=== PATIENT | female | born 1955 | race Caucasian/White ===

== ENCOUNTER → 2018-02-15 08:03 | Outpatient (CLI) | payer OTHER, SELFPAY ==
[2018-02-15 10:21] LABS: Vitamin D,25 Hydroxy 26.1 ng/mL (29.95-100.01)
[2018-02-15 10:23] LABS: AST(SGOT) 18 U/L (15-37); Alanine Aminotransfer ALT/SGPT 23 U/L (13-56); Albumin, Serum 3.7 g/dL (3.2-5.0); Alkaline Phosphatase 115 U/L (45-117); BUN 12 mg/dL (7-18); Bilirubin, Direct 0.07 mg/dL (0.00-0.30); Calcium,Total 8.9 mg/dL (8.5-10.1); Cholesterol 194 mg/dL (200); Creatinine, Serum 0.75 mg/dL (0.55-1.02); EST Glomerular Filtration Rate 83 mL/min (>60); Est Glom Filt Rate - Afr Amer 101 mL/min (>60); Globulin 3.9 g/dL (2.2-4.2); Glucose 91 mg/dL (74-106); Protein, Total 7.6 g/dL (6.4-8.2); Triglycerides 173 mg/dL
[2018-02-15 10:24] LABS: Anion Gap 6 (5-15); Chloride 107 mmol/L (98-107); High Density Lipoprotein 43 mg/dL; Sodium Level 139 mmol/L (136-145); Thyroid Stim Hormone (TSH) 2.38 uIU/mL (0.358-3.74); Very Low Density Lipoprotein 35 mg/dL (5-40)
== END ==
PROVIDERS: Family Provider Family Medicine; PCP Family Medicine; Visit Provider Family Medicine
DX: E78.5 Hyperlipidemia, unspecified (principal); M85.80 Other specified disorders of bone density and structure, unspecified site
CPT/HCPCS: 36415; 80048; 80061; 80076; 82306; 84443

== ENCOUNTER → 2019-02-14 | Outpatient (CLI) | payer OTHER, SELFPAY ==
[2019-02-14 13:06] LABS: Anion Gap 3 (5-15); BUN 21 mg/dL (7-18); Calcium,Total 8.7 mg/dL (8.5-10.1); Chloride 106 mmol/L (98-107); Creatinine, Serum 0.81 mg/dL (0.55-1.02); EST Glomerular Filtration Rate 76 mL/min (>60); Est Glom Filt Rate - Afr Amer 92 mL/min (>60); Glucose 77 mg/dL (74-106); Potassium 3.9 mmol/L (3.5-5.1); Sodium Level 139 mmol/L (136-145); Thyroid Stim Hormone (TSH) 1.19 uIU/mL (0.358-3.74)
[2019-02-14 13:07] LABS: Vitamin D,25 Hydroxy 23.4 ng/mL (29.95-100.01)
== END | disposition home or self-care (01) ==
PROVIDERS: Family Provider Family Medicine; PCP Family Medicine; Referring Provider Family Medicine; Visit Provider Family Medicine
DX: E78.5 Hyperlipidemia, unspecified (principal); M85.80 Other specified disorders of bone density and structure, unspecified site
CPT/HCPCS: 36415; 80048; 82306; 84443

== ENCOUNTER → 2020-05-01 | Outpatient (CLI) | payer OTHER, SELFPAY ==
[2020-05-01 10:17] LABS: Vitamin D,25 Hydroxy 38.5 ng/mL
[2020-05-01 10:27] LABS: ALB/GLOB Ratio 0.9 RATIO (0.9-2.4); AST(SGOT) 16 U/L (15-37); Alanine Aminotransfer ALT/SGPT 24 U/L (13-56); Albumin, Serum 3.6 g/dL (3.2-5.0); Alkaline Phosphatase 105 U/L (45-117); Anion Gap 5 (5-15); BUN 15 mg/dL (7-18); Calcium,Total 9.1 mg/dL (8.5-10.1); Chloride 106 mmol/L (98-107); Cholesterol 204 mg/dL (200); Creatinine, Serum 0.79 mg/dL (0.55-1.02); EST Glomerular Filtration Rate 78 mL/min (>60); Est Glom Filt Rate - Afr Amer 94 mL/min (>60); Globulin 4.2 g/dL (2.2-4.2); Glucose 90 mg/dL (74-106); High Density Lipoprotein 49 mg/dL; Potassium 4.1 mmol/L (3.5-5.1); Protein, Total 7.8 g/dL (6.4-8.2); Sodium Level 138 mmol/L (136-145); Thyroid Stim Hormone (TSH) 1.77 uIU/mL (0.358-3.74); Triglycerides 179 mg/dL; Very Low Density Lipoprotein 36 mg/dL (5-40)
== END | disposition home or self-care (01) ==
LOC: MFPLAB 08:13
PROVIDERS: PCP Family Medicine; Visit Provider Family Medicine
DX: M85.80 Other specified disorders of bone density and structure, unspecified site (principal); R79.89 Other specified abnormal findings of blood chemistry; E78.5 Hyperlipidemia, unspecified
CPT/HCPCS: 36415; 80053; 80061; 82306; 84443

== ENCOUNTER → 2020-05-18 | Outpatient (CLI) | payer OTHER, SELFPAY ==
--- NOTE | 2020-05-18 07:44 | CT_ITS ---
STUDY: LOW DOSE CT LUNG CANCER SCREENING REASON FOR EXAM: Female, 65 years old. LUNG SCREEN, SMOKER X 50+, 1PPD, COPD, SOB RADIATION DOSAGE (If Supplied By Facility): CTDIvol = ( 2.55 ) mGy, DLP = ( 89.97 ) mGycm TECHNIQUE: No contrast was administered. Low dose technique was utilized (average mAS-38 and kVp 120). 1.25 mm axial source images with a slice interval of 1.25-mm were reconstructed in lung windows. 2.5 mm axial source images with a slice interval of 2.5-mm were reconstructed in lung windows. 5.0 mm axial source images with a slice interval of 5.0-mm were reconstructed in soft tissue windows. Nodule measured using lung windows on PACS and/or independent workstation with automated measurement of minimum and maximum diameter. Nodule measurement reported as average diameter rounded to the nearest whole number. Growth is defined as an increase ins size of greater than 1.5 mm. COMPARISON: None. NODULES: There is a 3.1 mm noncalcified nodule in the superior aspect of the right lower lobe as seen on axial image #136. There is a 4.4 mm partially calcified nodule in the lateral aspect of the right lower lobe as seen on axial image #177. Emphysema: Diffuse emphysematous changes with bullous formation more prominent in the upper lobes. There is evidence of a thickening of the right major fissure. This extends into the region of the right lower lobe. Increased markings are also seen in the anterior medial aspect of the right middle lobe as well as the lingular segment of the left upper lobe suggestive of scarring. Aorta: Atherosclerotic calcification. Coronary arteries: Coronary artery calcification. Other chest and abdominal findings: Degenerative changes of the thoracic spine. CT/Low Dose CT Lung Screening IMPRESSION: Lung-RADS category 2 - Continue annual screening with LDCT in 12 months. IMPORTANT NOTES FOR USE: ACR Lung-RADS Version 1.0 Assessment Categories Release Date: February 27, 2014 Category: Coded 0-4 bases on nodule(s) with highest degree of suspicion. Negative screen is defined as categories 1 and 2; a positive screen is defined as categories 3 and 4. Category 3 and 4A nodules that are unchanged on interval CT should be coded as category 2, and individuals returned to screening in 12 months. Category 4X: Category 3 or 4 nodules with additional imaging findings that increase the suspicion of lung cancer, such as spiculation, GGN that doubles in size in 1 year, enlarged lymph notes, etc. Category Modifiers: S (significant finding unrelated to lung cancer) and C (prior history of treated lung cancer) may be added to the 0-4 Lung-RADS Electronically Signed: Elliot Gómez, at 9:23 EDT , Service support ,
== END | disposition home or self-care (01) ==
PROVIDERS: PCP Family Medicine; Referring Provider Family Medicine; Visit Provider Family Medicine
DX: Z72.0 Tobacco use (principal); Z12.2 Encounter for screening for malignant neoplasm of respiratory organs
CPT/HCPCS: G0297

== ENCOUNTER → 2021-03-14 11:46 | Outpatient (CLI) | payer MEDICARE, SELFPAY ==
--- NOTE | 2021-03-14 11:50 | RAD_ITS ---
STUDY: X-RAY - UNILATERAL RIBS ( LEFT ) WITH CHEST REASON FOR EXAM: Female, 66 years old. left side rib pain TECHNIQUE - RIBS: 4 view(s) of the ribs. TECHNIQUE - CHEST: Single PA view of the chest. COMPARISON: 11/20/2014 FINDINGS - RIBS: Normal visualized ribs without a demonstrated fracture. FINDINGS - CHEST: The lungs are clear and expanded. There is no demonstrated pleural abnormality. Normal size heart. Normal mediastinum and adeline. Normal visualized pulmonary arteries. Normal visualized aortic arch and descending thoracic aorta. Normal visualized thoracic spine. Normal visualized ribs, clavicles, and shoulders. There is no demonstrated abnormality of the visualized soft tissue structures of the upper abdomen. RAD/Ribs Uni Min 3V w/PA Chest IMPRESSION: RIBS: Normal x-ray examination of the ribs. CHEST: Normal x-ray examination of the chest. Electronically Signed: Edgar Dockery MD at 8:42 EDT Tel , Service support ,
== END ==
PROVIDERS: PCP Family Medicine; Referring Provider Family Medicine; Visit Provider Family Medicine
DX: R07.81 Pleurodynia (principal)
CPT/HCPCS: 71101

== ENCOUNTER → 2021-05-07 10:14 | Outpatient (CLI) | payer MEDICARE, SELFPAY ==
[2021-05-07 12:18] LABS: Vitamin D,25 Hydroxy 24.6 ng/mL
[2021-05-07 12:28] LABS: ALB/GLOB Ratio 0.9 RATIO (0.9-2.4); AST(SGOT) 19 U/L (15-37); Alanine Aminotransfer ALT/SGPT 20 U/L (13-56); Albumin, Serum 3.7 g/dL (3.2-5.0); Alkaline Phosphatase 120 U/L (45-117); Anion Gap 6 (5-15); BUN 13 mg/dL (7-18); BUN/Creat Ratio 16.9 RATIO (10-20); Calcium,Total 9.3 mg/dL (8.5-10.1); Chloride 103 mmol/L (98-107); Cholesterol 199 mg/dL (200); Creatinine, Serum 0.77 mg/dL (0.55-1.02); EST Glomerular Filtration Rate 80 mL/min (>60); Est Glom Filt Rate - Afr Amer 97 mL/min (>60); Globulin 4.1 g/dL (2.2-4.2); Glucose 86 mg/dL (74-106); High Density Lipoprotein 51 mg/dL; Protein, Total 7.8 g/dL (6.4-8.2); Sodium Level 134 mmol/L (136-145); Triglycerides 162 mg/dL; Very Low Density Lipoprotein 32 mg/dL (5-40)
== END ==
PROVIDERS: PCP Family Medicine; Visit Provider Family Medicine
DX: E78.5 Hyperlipidemia, unspecified (principal); M85.80 Other specified disorders of bone density and structure, unspecified site
CPT/HCPCS: 36415; 80053; 80061; 82306; 84443

== ENCOUNTER → 2021-05-17 13:04 | Outpatient (CLI) | payer MEDICARE, SELFPAY ==
--- NOTE | 2021-05-17 13:13 | CT_ITS ---
STUDY: LOW DOSE CT LUNG CANCER SCREENING REASON FOR EXAM: Female, 66 years old. SCREENING. Patient smoked 1 pack per day for 48 years. COPD. RADIATION DOSAGE (If Supplied By Facility): CTDIvol = ( 2.01 ) mGy, DLP = ( 76.62 ) mGycm TECHNIQUE: No contrast was administered. Low dose technique was utilized (average mAS-38 and kVp 120). 1.25 mm axial source images with a slice interval of 1.25-mm were reconstructed in lung windows. 2.5 mm axial source images with a slice interval of 2.5-mm were reconstructed in lung windows. 5.0 mm axial source images with a slice interval of 5.0-mm were reconstructed in soft tissue windows. Nodule measured using lung windows on PACS and/or independent workstation with automated measurement of minimum and maximum diameter. Nodule measurement reported as average diameter rounded to the nearest whole number. Growth is defined as an increase ins size of greater than 1.5 mm. COMPARISON: Comparison is made with prior examination dated 05/18/2020. NODULES: Stable 3.1 mm noncalcified nodule in the superior aspect of the right lower lobe as seen on axial image #145. Emphysema: There is evidence of diffuse centrilobular emphysema. Stable linear scarring in the anterior medial aspect of the right middle lobe as well as in the lower. There is evidence of a 2.1 cm bulla in the left lower lobe. This is new as compared to prior study. Endobronchial lesion: None Aorta: Atherosclerotic plaques. Coronary arteries: Coronary artery calcification. Heart: Unremarkable Pulmonary artery: Unremarkable Mediastinal nodes: Unremarkable Other chest and abdominal findings: CT/Low Dose CT Lung Screening IMPRESSION: Lung-RADS category 2 - Continue annual screening with LDCT in 12 months. IMPORTANT NOTES FOR USE: ACR Lung-RADS Version 1.1 Assessment Categories Release Date: 2018 Category: Coded 0-4 bases on nodule(s) with highest degree of suspicion. Negative screen is defined as categories 1 and 2; a positive screen is defined as categories 3 and 4. Category 3 and 4A nodules that are unchanged on interval CT should be coded as category 2, and individuals returned to screening in 12 months. Category 4X: Category 3 or 4 nodules with additional imaging findings that increase the suspicion of lung cancer, such as spiculation, GGN that doubles in size in 1 year, enlarged lymph notes, etc. Category Modifiers: S (significant finding unrelated to lung cancer) Electronically Signed: Elliot Gómez MD at 14:33 EDT , Service support ,
== END ==
PROVIDERS: PCP Family Medicine; Referring Provider Family Medicine; Visit Provider Family Medicine
DX: F17.210 Nicotine dependence, cigarettes, uncomplicated (principal); Z12.2 Encounter for screening for malignant neoplasm of respiratory organs
CPT/HCPCS: 71271

== ENCOUNTER → 2021-05-20 09:11 | Outpatient (CLI) | payer MEDICARE, SELFPAY ==
--- NOTE | 2021-05-20 09:23 | AAAS_ITS ---
Reason For Study: AAA SCREENING Aorta Measurements Aorta Doppler Measurements Proximal aorta measures1.81 x 1.87cm. in cross- Peak systolic flow velocities within the proximal sectional axis. aorta measure 74.3 cm/sec. Proximal aorta measures1.93cm. in longitudinal Peak systolic flow velocities within the mid aorta axis. measure 57.3 cm/sec. Mid aorta measures1.79 x 1.81cm. in cross- Peak systolic flow velocities within the distal sectional axis. aorta measure 57.2 cm/sec. Mid aorta measures1.79cm. in longitudinal axis. Distal aorta measures1.59 x 1.59cm. in cross- sectional axis. Maximum aorta diameter measures 1.59cm. in transverse axis. Left Iliac Artery Left iliac artery measures 0.72 x 0.83 cm. in the cross-sectional axis. Left iliac artery measures 0.75 cm. in the longitudinal axis. Peak systolic velocity in the left iliac artery measures 89.7 cm/sec. Right Iliac Artery Right iliac artery measures 0.70 x 0.81 cm. in the cross-sectional axis. Right iliac artery measures 0.64 cm. in the longitudinal axis. Peak systolic velocity in the right iliac artery measures 84.2 cm/sec. Procedure Aorta IVC Iliac vasculature or bypass grafts 52753. The exam was diagnostic. Exam performed in department. VL/AAA Screening Interpretation Summary The dimensions of the intra-abdominal aorta are normal, without evidence of ane urysmal dilatation. The iliac arteries are also normal in caliber bilaterally. The intra-abdominal aorta and iliac arteries are patent, demonstrating normal, pulsatile arterial flow and normal p eak systolic velocities. Ordering Physician: Wilmer Arteaga Referring Physician: Wilmer Arteaga Performed By: Melina Porter, RDCS, RVT
== END ==
PROVIDERS: PCP Family Medicine; Referring Provider Family Medicine; Visit Provider Family Medicine
DX: Z13.6 Encounter for screening for cardiovascular disorders (principal)
CPT/HCPCS: 76706

== ENCOUNTER → 2021-06-12 10:01 | Outpatient (CLI) | payer MEDICARE, SELFPAY ==
--- NOTE | 2021-06-12 10:03 | BI_ITS ---
MAMMOGRAPHY - BILATERAL SCREENING REASON FOR EXAM: Female, 66 years old. Routine annual screening examination. PERTINENT HISTORY: Non-contributory. TECHNIQUE: Digital bilateral breast ehsan (3D mammographic acquisition) in the CC and MLO projections. 2-D mediolateral oblique (MLO) and craniocaudad (CC) views of both breasts were obtained. CAD: Full Field Digital Mammography with Computer Added Detection was performed. COMPARISON: Comparison is made with prior examination 08/20/2017 and 11/14/2014. FINDINGS: Breast Composition: There are scattered areas of fibroglandular density. There are no dominant masses or suspicious calcifications. Stable asymmetry of breast tissue were more breast tissue is seen in the right breast as compared to the left side. Small benign appearing bilateral axillary No other significant abnormalities are identified. There has been no significant change since the prior study. BI/SCRN MAMM (CAD)W/EHSAN BILAT IMPRESSION: Stable bilateral screening mammogram. Yearly follow-up mammogram recommended. (A) ASSESSMENT CATEGORY: BIRADS Category 2: Benign. A letter regarding these results will be sent to the patient by the facility within 30 days. Approximately 10% of breast cancers are not detected by mammography. A normal mammogram should not delay biopsy of a clinically suspicious abnormality. [id number] Electronically Signed: Elliot Gómez MD at 11:31 EDT , Service support ,
--- NOTE | 2021-06-12 10:08 | BD_ITS ---
STUDY: DUAL ENERGY X-RAY ABSORPTIOMETRY / DXA REASON FOR EXAM: Female, 66 years old. V700. Patient is postmenopausal. TECHNIQUE: Bone Mineral Density (BMD) measurements of lumbar spine and bilateral hips were obtained. COMPARISON: Comparison is made with prior study dated 02/25/2017. FINDINGS: Lumbar Spine (L1-L4): g/cm2 (0.821) / T-score (-1.9) / Z-score (-0.2) Findings are suggestive of osteopenia with a moderate fracture risk. Left Femur Total: g/cm2 (0.776) / T-score (-1.4) / Z-score (-0.1) Left Femoral Neck: g/cm2 (0.706) / T-score (-1.3) / Z-score (0.2) Right Femur Total: g/cm2 (0.644) / T-score (-2.4) / Z-score (-1.2) Right Femoral Neck: g/cm2 (0.643) / T-score (-1.9) / Z-score (-0.3) The T-Scores on the most recent prior examination were: Lumbar Spine (L1-L4): There has been worsening of bone density since the previous examination. Left Femur Total: which represents a worsening of 4.6%. Right Femur Total: which represents a worsening of 12.4%. BD/Dexa Bone Density Study IMPRESSION: The patient is considered osteopenic as outlined below according to World [place] Organization (WHO) criteria with a high fracture risk. There has been worsening of bone density since the previous examination. Reference Information: The T-score is the number of standard deviations above or below the standard which is normal for young adults at their peak bone mineral density. The World Health Organization (WHO) interprets the T-scores as follows: Above -1 Normal bone density Between -1 and -2.5 Osteopenia Equal to / or below -2.5 Osteoporosis As a practical clinical guideline, osteopenia may be graded as follows: Mild -1 through -1.5 Moderate -1.6 through -2.0 Severe -2.1 through -2.4 The Z-score is the number of standard deviations above or below age-matched controls. A Z-score of less than -1.5 would be considered abnormal. References: 1. NIH Osteoporosis and Related Bone Diseases www osteo.org 2. International Society for Clinical Densitometry www iscd.org 3. National Osteoporosis Foundation www nof.org Electronically Signed: Elliot Gómez MD at 20:24 EDT , Service support ,
== END ==
PROVIDERS: PCP Family Medicine; Referring Provider Family Medicine; Visit Provider Family Medicine
DX: Z00.00 Encounter for general adult medical examination without abnormal findings (principal); Z78.0 Asymptomatic menopausal state; Z12.31 Encounter for screening mammogram for malignant neoplasm of breast
CPT/HCPCS: 77063; 77067; 77080

== ENCOUNTER → 2022-05-07 | Outpatient (CLI) | payer MEDICARE, SELFPAY ==
[2022-05-07 12:39] LABS: PTHIN 37.4 pg/mL (18.4-80.1)
[2022-05-07 12:42] LABS: Vitamin D,25 Hydroxy 36.6 ng/mL
[2022-05-07 12:57] LABS: AST(SGOT) 19 U/L (15-37); Alanine Aminotransfer ALT/SGPT 20 U/L (13-56); Albumin, Serum 3.7 g/dL (3.2-5.0); Alkaline Phosphatase 100 U/L (45-117); Anion Gap 6 (5-15); BUN 18 mg/dL (7-18); BUN/Creat Ratio 22.6 RATIO (10-20); Calcium,Total 9.5 mg/dL (8.5-10.1); Chloride 105 mmol/L (98-107); Cholesterol 214 mg/dL (200); EST Glomerular Filtration Rate 77 mL/min (>60); Est Glom Filt Rate - Afr Amer 93 mL/min (>60); Globulin 3.8 g/dL (2.2-4.2); Glucose 92 mg/dL (74-106); High Density Lipoprotein 50 mg/dL; Potassium 4.1 mmol/L (3.5-5.1); Protein, Total 7.5 g/dL (6.4-8.2); Sodium Level 138 mmol/L (136-145); Triglycerides 162 mg/dL; Very Low Density Lipoprotein 32 mg/dL (5-40)
== END | disposition home or self-care (01) ==
LOC: MFPLAB 10:37
PROVIDERS: PCP Family Medicine; Visit Provider Family Medicine
DX: E78.5 Hyperlipidemia, unspecified (principal); M85.80 Other specified disorders of bone density and structure, unspecified site
CPT/HCPCS: 36415; 80053; 80061; 82306; 82330; 83970; 84443

== ENCOUNTER → 2022-06-13 | Outpatient (CLI) | payer MEDICARE, SELFPAY ==
--- NOTE | 2022-06-13 06:56 | CT_ITS ---
HISTORY: SCREENING. TECHNIQUE: Helically acquired images were obtained of the chest without contrast. A radiation dose optimization technique was used for this scan. 946 images. COMPARISON: 05/17/2021, 05/18/2020. FINDINGS: LARGE AIRWAYS: Grossly patent with minimal adherent material. LUNGS: Advanced emphysema with chronic biapical, lingular, right upper, and right middle lobe scarring. Noncalcified 3 mm and 4 mm right lower lobe nodules again seen. No new suspicious nodule. PLEURA: No pneumothorax or significant pleural effusion. HEART/PERICARDIUM: Heart within normal limits in size. Coronary artery calcification present. No pericardial effusion. VESSELS: Thoracic aorta nondilated. MEDIASTINUM/MARCELA: Stable borderline enlarged precarinal lymph node.. BONES: Degenerative change and osteopenia. CT/Low Dose CT Lung Screening IMPRESSION: Advanced emphysema and mild scarring in the lungs with stable 3 to 4 mm right lower lobe pulmonary nodules. Lung RADS category 2: Benign appearance or behavior. Continue annual screening with low dose CT. Electronically Signed: Sylvia Villalobos MD at 16:19 EDT ,
--- NOTE | 2022-06-13 07:17 | BI_ITS ---
MAMMOGRAPHY - BILATERAL SCREENING REASON FOR EXAM: Female, 67 years old. Routine annual screening examination. PERTINENT HISTORY: Non-contributory. TECHNIQUE: Digital bilateral breast ehsan (3D mammographic acquisition) in the CC and MLO projections. 2-D mediolateral oblique (MLO) and craniocaudad (CC) views of both breasts were obtained. CAD: Full Field Digital Mammography with Computer Added Detection was performed. COMPARISON: Screening mammogram from 06/12/2021, 08/20/2017. FINDINGS: Breast Composition: There are scattered areas of fibroglandular density. There are no dominant masses or suspicious calcifications. No other significant abnormalities are identified. There has been no significant change since the prior study. BI/SCRN MAMM (CAD)W/EHSAN BILAT IMPRESSION: Stable bilateral screening mammogram. Yearly follow-up mammogram recommended. (A) ASSESSMENT CATEGORY: BIRADS Category 1: Negative. A letter regarding these results will be sent to the patient by the facility within 30 days. Approximately 10% of breast cancers are not detected by mammography. A normal mammogram should not delay biopsy of a clinically suspicious abnormality. Electronically Signed: Marcelo Fay, at 11:22 EDT ,
== END | disposition home or self-care (01) ==
PROVIDERS: PCP Family Medicine; Referring Provider Family Medicine; Visit Provider Family Medicine
DX: Z12.31 Encounter for screening mammogram for malignant neoplasm of breast (principal); R91.8 Other nonspecific abnormal finding of lung field; Z87.891 Personal history of nicotine dependence
CPT/HCPCS: 71271; 77063; 77067

== ENCOUNTER → 2023-01-14 | Outpatient (CLI) | payer MEDICARE, SELFPAY ==
[2023-01-14 13:07] LABS: Syphilis Antibodies Non-reactive
[2023-01-14 13:47] LABS: Vitamin D,25 Hydroxy 37.1 ng/mL
[2023-01-14 13:48] LABS: ALB/GLOB Ratio 1.1 RATIO (0.9-2.4); AST(SGOT) 19 U/L (15-37); Alanine Aminotransfer ALT/SGPT 27 U/L (13-56); Albumin, Serum 3.9 g/dL (3.2-5.0); Alkaline Phosphatase 105 U/L (45-117); Anion Gap 11 (5-15); BUN 14 mg/dL (7-18); BUN/Creat Ratio 19.4 RATIO (10-20); Calcium,Total 9.7 mg/dL (8.5-10.1); Chloride 105 mmol/L (98-107); Cholesterol 198 mg/dL (200); Creatinine, Serum 0.72 mg/dL (0.55-1.02); EST Glomerular Filtration Rate 86 mL/min (>60); Est Glom Filt Rate - Afr Amer 103 mL/min (>60); Globulin 3.5 g/dL (2.2-4.2); Glucose 87 mg/dL (74-106); High Density Lipoprotein 55 mg/dL; Protein, Total 7.4 g/dL (6.4-8.2); Sodium Level 142 mmol/L (136-145); Thyroid Stim Hormone (TSH) 1.56 uIU/mL (0.358-3.74); Triglycerides 154 mg/dL; Very Low Density Lipoprotein 31 mg/dL (5-40)
== END | disposition home or self-care (01) ==
LOC: MFPLAB 09:38
PROVIDERS: PCP Family Medicine; Referring Provider Family Medicine; Visit Provider Family Medicine
DX: A53.9 Syphilis, unspecified (principal); E78.5 Hyperlipidemia, unspecified; M85.80 Other specified disorders of bone density and structure, unspecified site
CPT/HCPCS: 36415; 80053; 80061; 82306; 83970; 84443; 86780

== ENCOUNTER → 2023-06-15 | Outpatient (CLI) | payer MEDICARE, SELFPAY ==
--- NOTE | 2023-06-15 12:40 | CT_ITS ---
STUDY: LOW DOSE CT LUNG CANCER SCREENING REASON FOR EXAM: Female, 68 years old. SCREENING. The patient smoked 1 pack per day for 40 years. COPD. RADIATION DOSAGE (If Supplied By Facility): CTDIvol = ( 2.01 ) mGy, DLP = ( 69.47 ) mGycm TECHNIQUE: No contrast was administered. Low dose technique was utilized (average mAS-38 and kVp 120). 1.25 mm axial source images with a slice interval of 1.25-mm were reconstructed in lung windows. 2.5 mm axial source images with a slice interval of 2.5-mm were reconstructed in lung windows. 5.0 mm axial source images with a slice interval of 5.0-mm were reconstructed in soft tissue windows. COMPARISON: Comparison is made with prior study dated June 13, 2022. NODULES: Stable 3 mm and 4 mm nodule in the right lower lobe. Emphysema: Hyperinflation. Emphysematous changes worse in the upper lobes. Stable linear scarring in the right lung base anteriorly. Stable scarring in the anteromedial aspect of the lingular segment of the left upper lobe as well as mild degree of scarring at the lung bases. Endobronchial lesion: None Aorta: Atherosclerotic plaque formation. CORONARY ARTERIES: Coronary artery calcification is seen. Heart: Unremarkable. Pulmonary artery: Unremarkable. Mediastinal nodes: Unremarkable. Other chest and abdominal findings: CT/Low Dose CT Lung Screening IMPRESSION: Lung-RADS category 2 - Continue annual screening with LDCT in 12 months. IMPORTANT NOTES FOR USE: ACR Lung-RADS Version 1.1 Assessment Categories Release Date: 2018 Category: Coded 0-4 bases on nodule(s) with highest degree of suspicion. Negative screen is defined as categories 1 and 2; a positive screen is defined as categories 3 and 4. Category 3 and 4A nodules that are unchanged on interval CT should be coded as category 2, and individuals returned to screening in 12 months. Category 4X: Category 3 or 4 nodules with additional imaging findings that increase the suspicion of lung cancer, such as spiculation, GGN that doubles in size in 1 year, enlarged lymph notes, etc. Category Modifiers: S (significant finding unrelated to lung cancer) Electronically Signed: Elliot Gómez MD at 15:45 EDT ,
== END | disposition home or self-care (01) ==
PROVIDERS: PCP Family Medicine; Referring Provider Family Medicine; Visit Provider Family Medicine
DX: F17.210 Nicotine dependence, cigarettes, uncomplicated (principal)
CPT/HCPCS: 71271

== ENCOUNTER → 2023-06-17 | Outpatient (CLI) | payer MEDICARE, SELFPAY ==
[2023-06-17 10:53] LABS: ALB/GLOB Ratio 0.9 RATIO (0.9-2.4); AST(SGOT) 15 U/L (15-37); Alanine Aminotransfer ALT/SGPT 23 U/L (13-56); Albumin, Serum 3.4 g/dL (3.2-5.0); Alkaline Phosphatase 107 U/L (45-117); Anion Gap 3 (5-15); BUN 18 mg/dL (7-18); BUN/Creat Ratio 22.4 RATIO (10-20); Calcium,Total 9.1 mg/dL (8.5-10.1); Chloride 108 mmol/L (98-107); Cholesterol 190 mg/dL (200); EST Glomerular Filtration Rate 76 mL/min (>60); Est Glom Filt Rate - Afr Amer 92 mL/min (>60); Globulin 3.8 g/dL (2.2-4.2); Glucose 89 mg/dL (74-106); High Density Lipoprotein 52 mg/dL; Potassium 4.1 mmol/L (3.5-5.1); Protein, Total 7.2 g/dL (6.4-8.2); Sodium Level 139 mmol/L (136-145); Triglycerides 135 mg/dL; Very Low Density Lipoprotein 27 mg/dL (5-40)
[2023-06-17 10:56] LABS: Vitamin D,25 Hydroxy 42.1 ng/mL
== END | disposition home or self-care (01) ==
LOC: MFPLAB 08:12
PROVIDERS: PCP Family Medicine; Visit Provider Family Medicine
DX: E78.5 Hyperlipidemia, unspecified (principal); M85.80 Other specified disorders of bone density and structure, unspecified site
CPT/HCPCS: 36415; 80053; 80061; 82306

== ENCOUNTER → 2023-06-19 | Outpatient (CLI) | payer MEDICARE, SELFPAY ==
--- NOTE | 2023-06-19 09:19 | BI_ITS ---
MAMMOGRAPHY - BILATERAL SCREENING REASON FOR EXAM: Female, 68 years old. Routine annual screening examination. PERTINENT HISTORY: Non-contributory. TECHNIQUE: Digital bilateral breast ehsan (3D mammographic acquisition) in the CC and MLO projections. 2-D mediolateral oblique (MLO) and craniocaudad (CC) views of both breasts were obtained. CAD: Full Field Digital Mammography with Computer Added Detection was performed. COMPARISON: Prior studies made with prior study June 13, 2022 and June 12, 2021. FINDINGS: Breast Composition: There are scattered areas of fibroglandular density. There are no dominant masses or suspicious calcifications. Stable asymmetry with more breast tissue is seen in the right breast as compared to the left side. Stable small benign-appearing bilateral axillary lymph nodes. No other significant abnormalities are identified. There has been no significant change since the prior study. BI/SCRN MAMM (CAD)W/EHSAN BILAT IMPRESSION: Stable bilateral screening mammogram. Yearly follow-up mammogram recommended. (A) ASSESSMENT CATEGORY: BIRADS Category 2: Benign. A letter regarding these results will be sent to the patient by the facility within 30 days. Approximately 10% of breast cancers are not detected by mammography. A normal mammogram should not delay biopsy of a clinically suspicious abnormality. [id number] Electronically Signed: Elliot Gómez MD at 10:53 EDT ,
== END | disposition home or self-care (01) ==
LOC: OPBI 09:18
PROVIDERS: PCP Family Medicine; Referring Provider Family Medicine; Visit Provider Family Medicine
DX: Z12.31 Encounter for screening mammogram for malignant neoplasm of breast (principal)
CPT/HCPCS: 77063; 77067

== ENCOUNTER → 2024-05-19 | Outpatient (CLI) | payer MEDICARE, SELFPAY ==
[2024-05-19 12:24] LABS: Hematocrit 47.9 % (37-47); Hemoglobin 15.6 g/dL (12.0-15.0); Mean Corp Hgb Conc 32.6 g/dL (32-36); Mean Corpuscular Hgb 28.3 pg (27.0-32.0); Mean Corpuscular Volume 86.9 fL (81-99); Mean Platelet Vol. 9.6 fl (6.2-12.0); Platelet Count 267 K/mm3 (150-450); RBC Distribution Width CV 12.9 % (11.6-14.6); RBC Distribution Width SD 40.8 fl (35.1-43.9); Red Blood Count 5.51 M/mm3 (4.2-5.4); White Blood Count 6.1 K/mm3 (4.4-11.0)
[2024-05-19 12:46] LABS: PTHIN 38.8 pg/mL (18.4-80.1)
[2024-05-19 12:49] LABS: Vitamin D,25 Hydroxy 42.1 ng/mL
[2024-05-19 13:11] LABS: ALB/GLOB Ratio 0.9 RATIO (0.9-2.4); AST(SGOT) 28 U/L (15-37); Alanine Aminotransfer ALT/SGPT 32 U/L (13-56); Albumin, Serum 3.7 g/dL (3.2-5.0); Alkaline Phosphatase 88 U/L (45-117); Anion Gap 9 (5-15); BUN 19 mg/dL (7-18); BUN/Creat Ratio 29.1 RATIO (10-20); Calcium,Total 9.3 mg/dL (8.5-10.1); Chloride 103 mmol/L (98-107); Cholesterol 139 mg/dL (200); Creatinine, Serum 0.65 mg/dL (0.55-1.02); EST Glomerular Filtration Rate 96 mL/min (>60); Est Glom Filt Rate - Afr Amer 116 mL/min (>60); Globulin 3.9 g/dL (2.2-4.2); Glucose 95 mg/dL (74-106); High Density Lipoprotein 46 mg/dL; Potassium 4.2 mmol/L (3.5-5.1); Protein, Total 7.6 g/dL (6.4-8.2); Sodium Level 134 mmol/L (136-145); Thyroid Stim Hormone (TSH) 1.37 uIU/mL (0.358-3.74); Triglycerides 136 mg/dL; Very Low Density Lipoprotein 27 mg/dL (5-40)
== END | disposition home or self-care (01) ==
LOC: MFPLAB 09:29
PROVIDERS: PCP Family Medicine; Visit Provider Family Medicine
DX: M85.80 Other specified disorders of bone density and structure, unspecified site (principal); M48.50XA Collapsed vertebra, not elsewhere classified, site unspecified, initial encounter for fracture; J44.9 Chronic obstructive pulmonary disease, unspecified; E78.5 Hyperlipidemia, unspecified; R79.89 Other specified abnormal findings of blood chemistry
CPT/HCPCS: 36415; 80053; 80061; 82306; 83970; 84443; 85027

== ENCOUNTER → 2024-05-25 | Outpatient (CLI) | payer MEDICARE, SELFPAY ==
--- NOTE | 2024-05-25 09:05 | RAD_ITS ---
STUDY: X-RAY - SOFT TISSUE NECK REASON FOR EXAM: Female, 69 years old. Headache. TECHNIQUE: 2 view(s) of the neck were obtained. COMPARISON: None. FINDINGS: Normal visualized nasopharynx, oropharynx, hypopharynx. Normal epiglottis and visualized subglottic tracheal air column. Normal prevertebral soft tissue structures. Osteopenia with diffuse moderate cervical spondylosis most marked from C3-4 to C6-7 with osteophyte formation most marked at C3-4 and C5-6. Normal soft tissues. RAD/Neck for Soft Tissue IMPRESSION: Cervical spondylosis. No soft tissue abnormality. Electronically Signed: Jaime Colin MD at 9:51 EDT ,
== END | disposition home or self-care (01) ==
LOC: MTRAD 08:25
PROVIDERS: PCP Family Medicine; Referring Provider Family Medicine; Visit Provider Family Medicine
DX: R51.9 Headache, unspecified (principal)
CPT/HCPCS: 70360

== ENCOUNTER → 2024-05-30 | Outpatient (CLI) | payer MEDICARE, SELFPAY ==
--- NOTE | 2024-05-30 13:53 | RAD_ITS ---
INDICATION: BACK PAIN EXAMINATION/TECHNIQUE: X-RAY - XR Spine Thoracic 2 Views COMPARISON: No relevant prior comparison study available FINDINGS: VERTEBRAE: Preserved vertebral body height. No fracture. No spondylolisthesis. Preservation of the normal thoracic kyphosis. No significant facet arthropathy. DISCS: Multilevel mild spondylosis. INCLUDED CHEST/ABDOMEN: No acute abnormalities. RAD/Thoracic Spine 2 Views IMPRESSION: No evidence of thoracic spinal fracture or spondylolisthesis. Electronically Signed: Lisa Ramirez MD at 1:59 EDT ,
== END | disposition home or self-care (01) ==
LOC: MTLAB 13:51 → MTRAD 13:52
PROVIDERS: PCP Family Medicine; Referring Provider Family Medicine; Visit Provider Family Medicine
DX: M54.9 Dorsalgia, unspecified (principal)
CPT/HCPCS: 72070

== ENCOUNTER 2024-06-14 13:26 | Emergency (ER) | payer MEDICARE, SELFPAY ==
[2024-06-14] VITALS (17 sets, daily range): BP systolic 81–169; BP diastolic 68–104; PULSE 96–122; RESP 11–26; TEMP 36.2–36.6; O2SAT 90–97; BMI 23.6
--- NOTE | 2024-06-14 14:37 | EDS_ITS ---
HPI History of Present Illness Chief Complaint: General Illness Informant: patient Onset/Context/Timing Onset: Month(s) (1) Context: Gradual Onset Timing: Continuous Quality: Lightheaded Location: Generalized Worsened by: Nothing Relieved by: Nothing Narrative Narrative: Patient presents with back pain, headache, dizziness, nausea, and fatigue that has been getting worse over the past month. Patient states her dizziness feels like she is lightheaded. Patient states she feels like that if she stood up too quick, she would fall over. Patient states nothing makes her symptoms any better and nothing makes them worse. Patient admits to some nausea and vomiting. Patient denies any hematemesis or coffee-ground emesis. Patient states she has a history of chronic back pain. Patient admits to a recent cough but is unable to produce any sputum. Patient also admits to some decreased sleep and decreased appetite. [facility] Medical History (Updated 06/14/24 @ 19:[address] Garry Carrillo, ) Cervical radiculopathy Chronic pain Hypercholesterolemia Osteoporosis COPD (chronic obstructive pulmonary disease) Home Medications ?Medication ?Instructions ?Recorded ?Last Taken ?Type albuterol sulfate 90 mcg/actuation 2 puff inhalation 4X/DAY PRN 06/14/24 06/14/24 History aerosol inhaler shortness of breath or wheezing alendronate 70 mg tablet 70 mg PO SA 06/14/24 06/11/24 History atorvastatin 20 mg tablet 20 mg PO DAILY 06/14/24 06/14/24 History gabapentin 300 mg capsule 300 mg PO QHS 06/14/24 06/13/24 History guaifenesin 1,200 mg tablet, 1,200 mg PO BID #20 tabs 06/14/24 Unknown Rx extended release 12 hr (Mucinex) meloxicam 7.5 mg tablet 7.5 mg PO DAILY 06/14/24 06/14/24 History nortriptyline 50 mg capsule 50 mg PO QHS 06/14/24 06/13/24 History prednisone 20 mg tablet 60 mg (3 x 20 mg) PO DAILY #15 06/14/24 Unknown Rx TABLETS Allergy/AdvReac Type Severity Reaction Status Date / Time No Known Allergies Allergy Verified 06/14/24 13:27 Family History no significant family his Surgical History no surgical history no surgical history Social History Smoking Status: Current every day smoker tobacco type: cigarettes ROS ROS ED Constitutional Constitutional ED: Denies chills or fever(s) Eyes Eyes: Denies blurry vision or change in vision ENT ENT ED: Denies rhinorrhea or sore throat Cardiovascular Cardiovascular: Denies chest pain or palpitations Respiratory/Chest Respiratory/Chest: Reports cough; Denies dyspnea Gastrointestinal Gastrointestinal: Reports nausea and vomiting Genitourinary Genitourinary ED: Denies dysuria or hematuria Musculoskeletal Musculoskeletal: Reports back pain and neck pain Integumentary Denies abscess or rash Neurologic Neurologic: Reports headache(s) and weakness Allergic/Immunologic Allergic/Immunologic ED: Denies mouth swelling or urticaria EXAM Physical Exam Const Vital Signs: 06/14/24 13:28 06/14/24 13:36 06/14/24 13:37 Temperature 97.2 F L Temperature Source Temporal Pulse Rate 121 H 122 H Pulse Rate [Lying] Pulse Rate [Sitting (for 1 minute prior to obtaining)] Pulse Rate [Standing (for 1 minute prior to obtaining)] Respiratory Rate 20 H 20 H Respiratory Effort Normal Non-Labored Respiratory Pattern Normal Blood Pressure 109/77 131/88 H Blood Pressure [Lying] Blood Pressure [Sitting (for 1 minute prior to obtaining)] Blood Pressure [Standing (for 1 minute prior to obtaining)] Blood Pressure Mean 87 102 Blood Pressure Mean [Lying] Blood Pressure Mean [Sitting (for 1 minute prior to obtaining)] Blood Pressure Mean [Standing (for 1 minute prior to obtaining)] Pulse Ox 90 95 Oxygen Delivery Method Room Air Nasal Cannula Oxygen Flow Rate (L/min) 4 06/14/24 14:36 06/14/24 15:00 06/14/24 15:26 Temperature Temperature Source Pulse Rate 107 H 112 H Pulse Rate [Lying] 109 H Pulse Rate [Sitting (for 1 minute prior to obtaining)] 107 H Pulse Rate [Standing (for 1 minute prior to obtaining)] 112 H Respiratory Rate 20 H 22 H Respiratory Effort Respiratory Pattern Blood Pressure 138/88 H 136/87 H Blood Pressure [Lying] 134/82 H Blood Pressure [Sitting (for 1 minute prior to obtaining)] 123/90 H Blood Pressure [Standing (for 1 minute prior to obtaining)] 81/68 L Blood Pressure Mean 104 103 Blood Pressure Mean [Lying] 99 Blood Pressure Mean [Sitting (for 1 minute prior to obtaining)] 101 Blood Pressure Mean [Standing (for 1 minute prior to obtaining)] 72 Pulse Ox 96 94 Oxygen Delivery Method Nasal Cannula Nasal Cannula Oxygen Flow Rate (L/min) 3 3 06/14/24 16:04 06/14/24 17:00 06/14/24 17:01 Temperature Temperature Source Pulse Rate 96 100 96 Pulse Rate [Lying] Pulse Rate [Sitting (for 1 minute prior to obtaining)] Pulse Rate [Standing (for 1 minute prior to obtaining)] Respiratory Rate 20 H 18 18 Respiratory Effort Respiratory Pattern Blood Pressure 154/79 H 162/81 H 162/81 H Blood Pressure [Lying] Blood Pressure [Sitting (for 1 minute prior to obtaining)] Blood Pressure [Standing (for 1 minute prior to obtaining)] Blood Pressure Mean 104 108 104 Blood Pressure Mean [Lying] Blood Pressure Mean [Sitting (for 1 minute prior to obtaining)] Blood Pressure Mean [Standing (for 1 minute prior to obtaining)] Pulse Ox 96 95 95 Oxygen Delivery Method Room Air Oxygen Flow Rate (L/min) 06/14/24 17:15 06/14/24 17:30 06/14/24 17:45 Temperature Temperature Source Pulse Rate 102 H 106 H Pulse Rate [Lying] Pulse Rate [Sitting (for 1 minute prior to obtaining)] Pulse Rate [Standing (for 1 minute prior to obtaining)] Respiratory Rate 22 H 16 Respiratory Effort Respiratory Pattern Blood Pressure 154/87 H 165/89 H 146/104 H Blood Pressure [Lying] Blood Pressure [Sitting (for 1 minute prior to obtaining)] Blood Pressure [Standing (for 1 minute prior to obtaining)] Blood Pressure Mean 107 110 115 Blood Pressure Mean [Lying] Blood Pressure Mean [Sitting (for 1 minute prior to obtaining)] Blood Pressure Mean [Standing (for 1 minute prior to obtaining)] Pulse Ox 95 96 Oxygen Delivery Method Oxygen Flow Rate (L/min) 06/14/24 18:00 06/14/24 18:04 06/14/24 19:00 Temperature Temperature Source Pulse Rate 106 H 108 H Pulse Rate [Lying] Pulse Rate [Sitting (for 1 minute prior to obtaining)] Pulse Rate [Standing (for 1 minute prior to obtaining)] Respiratory Rate 23 H 18 11 L Respiratory Effort Respiratory Pattern Normal Blood Pressure 138/101 H 168/81 H Blood Pressure [Lying] Blood Pressure [Sitting (for 1 minute prior to obtaining)] Blood Pressure [Standing (for 1 minute prior to obtaining)] Blood Pressure Mean 112 104 Blood Pressure Mean [Lying] Blood Pressure Mean [Sitting (for 1 minute prior to obtaining)] Blood Pressure Mean [Standing (for 1 minute prior to obtaining)] Pulse Ox 97 96 Oxygen Delivery Method Oxygen Flow Rate (L/min) Positive well nourished and well developed General Appearance ED: well developed and NAD HEENT Reports moist mucous membranes Eyes PERRL and EOMs intact bilaterally General Eye ED: Negative for pale conjunctiva Neck supple and no JVD Resp normal respiratory effort and clear to auscultation bilaterally Cardio regular rate and regular rhythm GI non-tender and non-distended Palpation: soft Extremity normal to inspection General Extremety ED: Negative for edema or tenderness General Extremity: Negative for edema Neuro oriented x3, CN's II-XII intact bilaterally and no sensory deficits noted Motor Exam: strength 5/5 throughout MDM MDM MDM Narrative Medical decision making narrative: Differential diagnosis includes cardiac dysrhythmia, cardiac ischemia, electrolyte abnormality, pneumonia, viral illness, urinary tract infection, dehydration, and depression. EKG will be obtained to assess for cardiac dysrhythmia and cardiac ischemia. Chest x-ray will be obtained to assess for pneumonia and pneumothorax. CBC will be obtained to assess for leukocytosis and anemia. Comprehensive metabolic profile will be obtained to assess for hepatic function, renal function, and electrolyte abnormality. Urinalysis will be obtained to assess for urinary tract infection and hematuria. Serum lactate will be obtained to assess for sepsis. COVID-19, influenza, and RSV PCR will be obtained to assess for viral illness. Lab Data Attestation: I reviewed the patient's lab results. Lab results narrative: CBC was reviewed. Hemoglobin was slightly elevated at 16.6 and hematocrit of 49.0. Comprehensive metabolic profile was reviewed. Sodium was slightly low at 133. Potassium slightly low at 3.2. BUN was slightly elevated at 20. The remainder was within normal limits. Serum lactate was reviewed and was normal at 1.1. Urinalysis was reviewed. There is no evidence of urinary tract infect ion or hematuria. COVID-19 PCR was reviewed and was negative. Influenza PCR was reviewed and was negative for influenza A and influenza B. RSV PCR was reviewed and was negative. Labs: Laboratory Results - last 24 hr 06/14/24 06/14/24 06/14/24 13:52 15:17 15:18 WBC 9.6 RBC 5.73 H Hgb 16.6 H Hct 49.0 H MCV 85.5 MCH 29.0 MCHC 33.9 RDW Std Deviation 41.1 RDW Coeff of Neel 13.2 Plt Count 372 MPV 9.7 Immature Gran % (Auto) 0.800 Neut % (Auto) 74.2 H Lymph % (Auto) 14.9 L [place] % (Auto) 8.5 Eos % (Auto) 0.7 Baso % (Auto) 0.9 Absolute Neuts (auto) 7.1 Absolute Lymphs (auto) 1.43 Nucleated RBC % 0 Sodium 133 L Potassium 3.2 L Chloride 96 L Carbon Dioxide 29.0 Anion Gap 8 BUN 20 H Creatinine 0.65 Estim Creat Clear Calc 58.12 Est GFR (MDRD) Af Amer 117 Est GFR (MDRD) Non-Af 96 BUN/Creatinine Ratio 30.8 H Glucose 117 H Lactic Acid 1.1 Calcium 9.5 Total Bilirubin 0.70 AST 17 ALT 21 Alkaline Phosphatase 108 Total Protein 7.9 Albumin 3.8 Globulin 4.1 Albumin/Globulin Ratio 0.9 Urine Color Yellow Urine Clarity Sl. Cloudy Urine pH 6.0 Ur Specific [place] 1.020 Urine Protein 30 H Urine Glucose (UA) Normal Urine Ketones 50 H Urine Occult Blood Negative Urine Nitrite Negative Urine Bilirubin Negative Urine Urobilinogen 1 H Ur Leukocyte Esterase Negative Urine RBC 0-5 SEEN Urine WBC 0-5 SEEN Ur Squamous Epith Cells 0-5 SEEN Amorphous Sediment 1+ Urine Bacteria 2+ Urine Mucus 1+ Radiography Chest X-Ray - ED: 2 View, Read by ED Physician, Read by Radiologist, No Acute Disease and Chronic Changes Diagnostic Testing: Clinical Impression(s) from Imaging Studies Chest X-Ray 06/14/24 15:32 IMPRESSION: Hyperinflation and stable scarring in the right midlung. Prominence of the central pulmonary arteries. Electronically Signed: Elliot Gómez MD at 15:46 EDT , PA and lateral chest x-ray was obtained. There are 2 views. On my independent interpretation, lung gaming show stable scarring and hyperinflation of the right midlung. There is normal cardiac silhouette. Bony thorax is normal. There is no acute process noted. Radiologist also interpreted the x-ray and agrees. EKG Initial EKG: Attestation: I personally reviewed and interpreted this EKG as follows: Interpretation: No Acute Injury Pattern and Sinus Tachycardia (119) Comments: EKG was obtained. On my independent interpretation, it showed a sinus tachycardia with a rate of 119. SC interval, QRS interval, and QTc intervals were all normal. [place] was normal. There are no acute ST or T wave changes. Prior EKG tracings: not available for review Prior: No Prior Treatment and Re-Evaluation :: Patient was given IV fluids. On reevaluation, patient was noted to have some wheezing. Patient's oxygen saturation dropped to 83% on room air. Patient was placed back on 2 L nasal cannula. Patient was advised of her findings. Patient does not wear home oxygen. Patient was given a dose of Solu-Medrol. Because of the hypoxia, case will be discussed with the hospitalist for admission for observation. Hospitalist was in to evaluate the patient. She stated that her wheezing has cleared up. Patient was ambulated down the hallway with a pulse oximeter and her oxygen saturation maintained 91% and above. Patient wants to go home. Patient was given a prescription for a short course of prednisone. Patient was given her first dose here. Patient was instructed to continue using her inhaler as needed. Patient was also given a prescription for Mucinex. Patient was instructed to follow-up with her primary care physician in 3 to 5 days. Patient was instructed return if worse in any way. Patient understood and was agreeable with the plan. All questions were answered. Discharge Plan Triage Chief Complaint: General Illness ED Provider: Garry Carrillo Dx/Rx/DC Orders Clinical Impression: COPD exacerbation, Dizziness Instructions: ED COPD Flare Prescriptions: New prednisone 20 mg tablet 60 mg PO DAILY Qty: 15 0RF guaifenesin [Mucinex] 1,200 mg tablet extended release 12hr 1,200 mg PO BID Qty: 20 0RF No Action atorvastatin 20 mg tablet 20 mg PO DAILY alendronate 70 mg tablet 70 mg PO SA meloxicam 7.5 mg tablet 7.5 mg PO DAILY gabapentin 300 mg capsule 300 mg PO QHS albuterol sulfate 90 mcg/actuation HFA aerosol inhaler 2 puff INHALATION 4X/DAY PRN (Reason: shortness of breath or wheezing) nortriptyline 50 mg capsule 50 mg PO QHS Primary Care Provider: Wilmer Arteaga Referrals: Wilmer Arteaga MD [Primary Care Provider] - 3-5 Days Activity Restrictions/Additional Instructions: Continue using your inhaler as needed. Print Language: Mauritanian Disposition Disposition: Home, Self Care
[2024-06-14 15:17] LABS: Absolute Lymphocyte Count 1.43 X10^3/uL (0.83-4.51); Absolute Neutrophil Count 7.1 X10^3/uL (2.0-7.7); Basophil# 0.09 X10^3/uL; Basophil% 0.9 % (0-1); Eosinophil# 0.07 X10^3/uL; Eosinophils% 0.7 % (0-5); Hemoglobin 16.6 g/dL (12.0-15.0); Lymphocyte # 1.43 X10^3/ul (0.83-4.51); Lymphocyte % 14.9 % (19-41); Mean Corp Hgb Conc 33.9 g/dL (32-36); Mean Corpuscular Volume 85.5 fL (81-99); Mean Platelet Vol. 9.7 fl (6.2-12.0); Monocyte# 0.82 X10^3/uL; Monocyte% 8.5 % (0-10); NRBC Flagged by Analyzer 0 % (0-5); Neutrophil # 7.11 X10^3/uL (2.7-7.7); Neutrophil % 74.2 % (47-70); Platelet Count 372 K/mm3 (150-450); RBC Distribution Width CV 13.2 % (11.6-14.6); RBC Distribution Width SD 41.1 fl (35.1-43.9); Red Blood Count 5.73 M/mm3 (4.2-5.4); White Blood Count 9.6 K/mm3 (4.4-11.0)
[2024-06-14] MEDS: 0.9% Normal Saline (1000mL) 1,000 ML 1000 ML IV (15:20)
--- NOTE | 2024-06-14 15:32 | RAD_ITS ---
STUDY: X-RAY CHEST REASON FOR EXAM: Female, 69 years old. Weakness TECHNIQUE: PA and lateral views of the chest. COMPARISON: Comparison is made with prior study dated May 30, 2024. FINDINGS: EKG electrodes are seen. There is hyperinflation of the lungs consistent with chronic obstructive lung disease (COPD). Stable scarring in the right midlung. There is no demonstrated pleural abnormality. Normal size heart. Normal mediastinum and adeline. There is prominence of the pulmonary hilar arteries without peripheral pulmonary vascular congestion, suggesting pulmonary hypertension. Normal visualized aortic arch and descending thoracic aorta. Normal visualized thoracic spine. Normal visualized ribs, clavicles, and shoulders. There is no demonstrated abnormality of the visualized soft tissue structures of the upper abdomen. RAD/Chest PA and Lateral IMPRESSION: Hyperinflation and stable scarring in the right midlung. Prominence of the central pulmonary arteries. Electronically Signed: Elliot Gómez MD at 15:46 EDT ,
[2024-06-14 15:37] LABS: Color, Urine Yellow (Yellow); Glucose, Dipstick Normal (Normal); Ketone-Dipstick 50 mg/dl (Negative); Leukocyte Esterase-Dipstick Negative /ul (Negative); Nitrite-Dipstick Negative (Negative); Occult Blood-Urine Negative /ul (Negative); Protein-Dipstick 30 mg/dl (Negative); Urine Bilirubin Dipstick Negative (Negative); Urine Clarity Sl. Cloudy (Clear); Urine Urobilinogen 1 mg/dl (Normal)
[2024-06-14 15:41] LABS: ALB/GLOB Ratio 0.9 RATIO (0.9-2.4); AST(SGOT) 17 U/L (15-37); Alanine Aminotransfer ALT/SGPT 21 U/L (13-56); Albumin, Serum 3.8 g/dL (3.2-5.0); Alkaline Phosphatase 108 U/L (45-117); Anion Gap 8 (5-15); BUN 20 mg/dL (7-18); BUN/Creat Ratio 30.8 RATIO (10-20); Calcium,Total 9.5 mg/dL (8.5-10.1); Chloride 96 mmol/L (98-107); Creatinine, Serum 0.65 mg/dL (0.55-1.02); EST Glomerular Filtration Rate 96 mL/min (>60); Est Glom Filt Rate - Afr Amer 117 mL/min (>60); Estimated Creatinine Clearance 58.12 ml/min; Globulin 4.1 g/dL (2.2-4.2); Glucose 117 mg/dL (74-106); Potassium 3.2 mmol/L (3.5-5.1); Protein, Total 7.9 g/dL (6.4-8.2); Sodium Level 133 mmol/L (136-145)
[2024-06-14 16:03] LABS: Amorphous Sediment 1+; Bacteria 2+ /hpf (None Seen); Red Blood Cells-Urine 0-5 SEEN /hpf (0-5); Squamous Epithelial Cells - UA 0-5 SEEN /hpf (5-10); White Blood Cells 0-5 SEEN /hpf (0-5)
[2024-06-14 16:04] LABS: Mucous, Urine 1+ /hpf (<or=2+)
[2024-06-14 16:12] LABS: Lactic Acid 1.1 mmol/L (0.4-1.9)
[2024-06-14] MEDS: Ipratropium/Albuterol Sulfate 3 ML AMPUL.NEB INHALATION (18:03)
--- NOTE | 2024-06-14 18:58 | HP.PCM.HOS_ITS ---
[facility] - General General Date of Admission: 06/14/24 Date of Service: 06/14/24 Chief Complaint: Back pain, headache, dizziness, nausea, fatigue HPI Narrative GABBY THURSDAY, is a 69 F who presented to the emergency department at [facility] on 06/14/2024 with multiple complaints including back pain, headache, dizziness, nausea, and fatigue that have been getting worse over the past few months. She reported that her dizziness feels like she is lightheaded and not vertiginous and that if she stands up too quickly she would fall over. She reported nothing makes her symptoms any better or any worse. She admitted to some nausea and vomiting intermittently but denied any hematemesis or coffee- ground emesis. She does have a history of chronic back pain and recently developed a cough but has not produced any sputum. She also complains of decreased sleep and appetite. Orthostatic vitals were obtained in the emergency department and positive with blood pressure however only 1 minute transpired between positional change and taking blood pressure. She was treated with IV fluids and then developed wheezing and her oxygen saturations dropped to 90% on room air so she was placed on 3 L nasal cannula which improved her oxygen saturations to 96%. There was concern that she was developing exacerbation of COPD and she does have a history of tobacco abuse. PFTs were last done in our system in 2014 and showed mild large airway obstructive ventilatory defect with no significant response to bronchodilators she also had an echocardiogram done in 2015 which showed an EF of 60%, mild diffuse mitral valve thickening, mild focal aortic valve thickening and a right ventricular systolic pressure of 25 mmHg with trans mitral Doppler flow suggestive of impaired relaxation or diastolic dysfunction. Patient is still smoking. Vital signs on presentation showed a temperature of 97.2, initial heart rate was 121 but has subsequently dropped into the 90-100 range, respiratory rate was 20, blood pressure was 109/77 and sats were 90% on room air. CBC is overall fairly unremarkable and she appears to be hemoconcentrated some. Chemistry panel shows mild hyponatremia with a sodium of 133, hypokalemia with a potassium of 3.2, BUN of 20 and a serum creatinine 0.65. Glucose is 117. Lactic acid is 1.1. LFTs are unremarkable. UA shows an elevated specific gravity at 1.02 consistent with dehydration but is not suggestive of infection. Chest x-ray shows hyperinflation and stable scarring in the right midlung with prominence of the central pulmonary arteries but no acute findings are noted. Influenza, RSV, COVID PCR's were negative. EKG was sinus tachycardia with a rate of 119, normal intervals and axis with no ST-T wave changes concerning for acute ischemia. [facility] Medical History (Updated 06/14/24 @ 19:[address] Dena Castillo DO) Cervical radiculopathy Chronic pain Hypercholesterolemia Osteoporosis COPD (chronic obstructive pulmonary disease) Home Medications ?Medication ?Instructions ?Recorded ?Last Taken ?Type albuterol sulfate 90 mcg/actuation 2 puff inhalation 4X/DAY PRN 06/14/24 06/14/24 History aerosol inhaler shortness of breath or wheezing alendronate 70 mg tablet 70 mg PO SA 06/14/24 06/11/24 History atorvastatin 20 mg tablet 20 mg PO DAILY 06/14/24 06/14/24 History gabapentin 300 mg capsule 300 mg PO QHS 06/14/24 06/13/24 History meloxicam 7.5 mg tablet 7.5 mg PO DAILY 06/14/24 06/14/24 History nortriptyline 50 mg capsule 50 mg PO QHS 06/14/24 06/13/24 History Allergy/AdvReac Type Severity Reaction Status Date / Time No Known Allergies Allergy Verified 06/14/24 13:27 Family History no significant family his Surgical History no surgical history Social History Smoking Status: Current every day smoker tobacco type: cigarettes Vital Signs Vital Signs Vital Signs: 06/14/24 13:28 06/14/24 13:36 06/14/24 13:37 Temperature 97.2 F L Temperature Source Temporal Pulse Rate 121 H 122 H Pulse Rate [Lying] Pulse Rate [Sitting (for 1 minute prior to obtaining)] Pulse Rate [Standing (for 1 minute prior to obtaining)] Respiratory Rate 20 H 20 H Respiratory Effort Normal Non-Labored Respiratory Pattern Normal Blood Pressure 109/77 131/88 H Blood Pressure [Lying] Blood Pressure [Sitting (for 1 minute prior to obtaining)] Blood Pressure [Standing (for 1 minute prior to obtaining)] Blood Pressure Mean 87 102 Blood Pressure Mean [Lying] Blood Pressure Mean [Sitting (for 1 minute prior to obtaining)] Blood Pressure Mean [Standing (for 1 minute prior to obtaining)] Pulse Ox 90 95 Oxygen Delivery Method Room Air Nasal Cannula Oxygen Flow Rate (L/min) 4 06/14/24 14:36 06/14/24 15:00 06/14/24 15:26 Temperature Temperature Source Pulse Rate 107 H 112 H Pulse Rate [Lying] 109 H Pulse Rate [Sitting (for 1 minute prior to obtaining)] 107 H Pulse Rate [Standing (for 1 minute prior to obtaining)] 112 H Respiratory Rate 20 H 22 H Respiratory Effort Respiratory Pattern Blood Pressure 138/88 H 136/87 H Blood Pressure [Lying] 134/82 H Blood Pressure [Sitting (for 1 minute prior to obtaining)] 123/90 H Blood Pressure [Standing (for 1 minute prior to obtaining)] 81/68 L Blood Pressure Mean 104 103 Blood Pressure Mean [Lying] 99 Blood Pressure Mean [Sitting (for 1 minute prior to obtaining)] 101 Blood Pressure Mean [Standing (for 1 minute prior to obtaining)] 72 Pulse Ox 96 94 Oxygen Delivery Method Nasal Cannula Nasal Cannula Oxygen Flow Rate (L/min) 3 3 06/14/24 16:04 06/14/24 17:00 06/14/24 17:01 Temperature Temperature Source Pulse Rate 96 100 96 Pulse Rate [Lying] Pulse Rate [Sitting (for 1 minute prior to obtaining)] Pulse Rate [Standing (for 1 minute prior to obtaining)] Respiratory Rate 20 H 18 18 Respiratory Effort Respiratory Pattern Blood Pressure 154/79 H 162/81 H 162/81 H Blood Pressure [Lying] Blood Pressure [Sitting (for 1 minute prior to obtaining)] Blood Pressure [Standing (for 1 minute prior to obtaining)] Blood Pressure Mean 104 108 104 Blood Pressure Mean [Lying] Blood Pressure Mean [Sitting (for 1 minute prior to obtaining)] Blood Pressure Mean [Standing (for 1 minute prior to obtaining)] Pulse Ox 96 95 95 Oxygen Delivery Method Room Air Oxygen Flow Rate (L/min) 06/14/24 17:15 06/14/24 17:30 06/14/24 17:45 Temperature Temperature Source Pulse Rate 102 H 106 H Pulse Rate [Lying] Pulse Rate [Sitting (for 1 minute prior to obtaining)] Pulse Rate [Standing (for 1 minute prior to obtaining)] Respiratory Rate 22 H 16 Respiratory Effort Respiratory Pattern Blood Pressure 154/87 H 165/89 H 146/104 H Blood Pressure [Lying] Blood Pressure [Sitting (for 1 minute prior to obtaining)] Blood Pressure [Standing (for 1 minute prior to obtaining)] Blood Pressure Mean 107 110 115 Blood Pressure Mean [Lying] Blood Pressure Mean [Sitting (for 1 minute prior to obtaining)] Blood Pressure Mean [Standing (for 1 minute prior to obtaining)] Pulse Ox 95 96 Oxygen Delivery Method Oxygen Flow Rate (L/min) 06/14/24 18:00 06/14/24 18:04 Temperature Temperature Source Pulse Rate 106 H 108 H Pulse Rate [Lying] Pulse Rate [Sitting (for 1 minute prior to obtaining)] Pulse Rate [Standing (for 1 minute prior to obtaining)] Respiratory Rate 23 H 18 Respiratory Effort Respiratory Pattern Normal Blood Pressure 138/101 H Blood Pressure [Lying] Blood Pressure [Sitting (for 1 minute prior to obtaining)] Blood Pressure [Standing (for 1 minute prior to obtaining)] Blood Pressure Mean 112 Blood Pressure Mean [Lying] Blood Pressure Mean [Sitting (for 1 minute prior to obtaining)] Blood Pressure Mean [Standing (for 1 minute prior to obtaining)] Pulse Ox 97 Oxygen Delivery Method Oxygen Flow Rate (L/min) Weight Weight: 62.6 kg Body Mass Index (BMI) 23.6 Results Lab / Micro Data 06/14/24 13:52 06/14/24 13:52 Labs: Laboratory Results - last 24 hr 06/14/24 13:52: WBC 9.6, RBC 5.73 H, Hgb 16.6 H, Hct 49.0 H, MCV 85.5, MCH 29.0, MCHC 33.9, RDW Std Deviation 41.1, RDW Coeff of Neel 13.2, Plt Count 372, MPV 9.7, Immature Gran % (Auto) 0.800, Neut % (Auto) 74.2 H, Lymph % (Auto) 14.9 L, [place] % (Auto) 8.5, Eos % (Auto) 0.7, Baso % (Auto) 0.9, Absolute Neuts (auto) 7.1, Absolute Lymphs (auto) 1.43, Nucleated RBC % 0, Sodium 133 L, Potassium 3.2 L, Chloride 96 L, Carbon Dioxide 29.0, Anion Gap 8, BUN 20 H, Creatinine 0.65, Estim Creat Clear Calc 58.12, Est GFR (MDRD) Af Amer 117, Est GFR (MDRD) Non-Af 96, BUN/Creatinine Ratio 30.8 H, Glucose 117 H, Calcium 9.5, Total Bilirubin 0.70, AST 17, ALT 21, Alkaline Phosphatase 108, Total Protein 7.9, Albumin 3.8, Globulin 4.1, Albumin/Globulin Ratio 0.9 06/14/24 15:17: Lactic Acid 1.1 06/14/24 15:18: Urine Color Yellow, Urine Clarity Sl. Cloudy, Urine pH 6.0, Ur Specific [place] 1.020, Urine Protein 30 H, Urine Glucose (UA) Normal, Urine Ketones 50 H, Urine Occult Blood Negative, Urine Nitrite Negative, Urine Bilirubin Negative, Urine Urobilinogen 1 H, Ur Leukocyte Esterase Negative, Urine RBC 0-5 SEEN, Urine WBC 0-5 SEEN, Ur Squamous Epith Cells 0-5 SEEN, Amorphous Sediment 1+, Urine Bacteria 2+, Urine Mucus 1+ Micro: Microbiology 06/14/24 15:18 Mucosa - Nose SARS-CoV-2, Influenza & RSV (PCR) - Final Imaging Radiology Impression Chest X-Ray 06/14/24 15:32 IMPRESSION: Hyperinflation and stable scarring in the right midlung. Prominence of the central pulmonary arteries. Electronically Signed: Elliot Gómez MD at 15:46 EDT , Assessment & Plan Assessment/Plan (1) Dehydration: (2) Orthostasis: (3) Hyponatremia: (4) Hypokalemia: (5) Hypoxia:
[2024-06-14] MEDS: predniSONE 20 MG Tablet 60 MG PO (20:07)
[2024-06-14 20:42] LABS: BNP,B-Type NATRIURETIC PEPTIDE 18.9 pg/mL (0-100)
== END 2024-06-14 20:39 | disposition home or self-care (01) ==
PROVIDERS: Internal Medicine; Emergency Provider Emergency Medicine; PCP Family Medicine; Visit Provider Emergency Medicine
DX: J44.1 Chronic obstructive pulmonary disease with (acute) exacerbation (principal); R42 Dizziness and giddiness; F17.210 Nicotine dependence, cigarettes, uncomplicated; G89.29 Other chronic pain; M54.9 Dorsalgia, unspecified
CPT/HCPCS: 71046; 80053; 81001; 83605; 83880; 85025; 87631; 93005; 94640; 96360; 99285; J7030; A4216

== ENCOUNTER → 2024-06-16 | Outpatient (CLI) | payer MEDICARE, SELFPAY ==
--- NOTE | 2024-06-16 07:23 | CT_ITS ---
STUDY: LOW DOSE CT LUNG CANCER SCREENING REASON FOR EXAM: Female, 69 years old. Patient smoked 1 pack per day for 51 years. COPD. RADIATION DOSAGE (If Supplied By Facility): CTDIvol = ( 2.01 ) mGy, DLP = ( 74.49 ) mGycm TECHNIQUE: No contrast was administered. Low dose technique was utilized (average mAS-38 and kVp 120). 1.25 mm axial source images with a slice interval of 1.25-mm were reconstructed in lung windows. 2.5 mm axial source images with a slice interval of 2.5-mm were reconstructed in lung windows. 5.0 mm axial source images with a slice interval of 5.0-mm were reconstructed in soft tissue windows. COMPARISON: Comparison is made with prior study June 15, 2023. Emphysema: Hyperinflation. Emphysematous changes more pronounced in the upper lobes with the centrilobular emphysematous changes. Mild scarring in the posterior aspect of the right upper lobe as well as in the medial aspect of both the left and right upper lobes. Scarring with volume loss in the medial aspect of the right middle lobe. Focal bronchiectasis is seen. This has progressed as compared to prior study. Endobronchial lesion: None Aorta: Atherosclerotic plaque formation. CORONARY ARTERIES: Coronary artery calcification is seen. Heart: Unremarkable Pulmonary artery: Unremarkable Mediastinal nodes: Small mediastinal lymph nodes. Other chest and abdominal findings: CT/Low Dose CT Lung Screening IMPRESSION: Lung-RADS category 2 - Continue annual screening with LDCT in 12 months. IMPORTANT NOTES FOR USE: ACR Lung-RADS Version 1.1 Assessment Categories Release Date: 2018 Category: Coded 0-4 bases on nodule(s) with highest degree of suspicion. Negative screen is defined as categories 1 and 2; a positive screen is defined as categories 3 and 4. Category 3 and 4A nodules that are unchanged on interval CT should be coded as category 2, and individuals returned to screening in 12 months. Category 4X: Category 3 or 4 nodules with additional imaging findings that increase the suspicion of lung cancer, such as spiculation, GGN that doubles in size in 1 year, enlarged lymph notes, etc. Category Modifiers: S (significant finding unrelated to lung cancer) Electronically Signed: Elliot Gómez MD at 14:24 EDT ,
== END | disposition home or self-care (01) ==
PROVIDERS: PCP Family Medicine; Referring Provider Family Medicine; Visit Provider Family Medicine
DX: F17.210 Nicotine dependence, cigarettes, uncomplicated (principal)
CPT/HCPCS: 71271

== ENCOUNTER → 2024-06-22 | Outpatient (CLI) | payer MEDICARE, SELFPAY ==
--- NOTE | 2024-06-22 09:29 | BI_ITS ---
MAMMOGRAPHY - BILATERAL SCREENING REASON FOR EXAM: Female, 69 years old. Routine annual screening examination. PERTINENT HISTORY: Non-contributory. TECHNIQUE: Digital bilateral breast ehsan (3D mammographic acquisition) in the CC and MLO projections. 2-D mediolateral oblique (MLO) and craniocaudad (CC) views of both breasts were obtained. CAD: Full Field Digital Mammography with Computer Added Detection was performed. COMPARISON: Comparison is made with prior study June 19, 2023 and June 13, 2022. FINDINGS: Breast Composition: There are scattered areas of fibroglandular density. There are no dominant masses or suspicious calcifications. Stable asymmetry of breast tissue where more breast tissue is seen in the right breast as compared to the left side. No other significant abnormalities are identified. There has been no significant change since the prior study. BI/SCRN MAMM (CAD)W/EHSAN BILAT IMPRESSION: Stable bilateral screening mammogram. Yearly follow-up mammogram recommended. (A) ASSESSMENT CATEGORY: BIRADS Category 2: Benign. A letter regarding these results will be sent to the patient by the facility within 30 days. Approximately 10% of breast cancers are not detected by mammography. A normal mammogram should not delay biopsy of a clinically suspicious abnormality. [id number] Electronically Signed: Elliot Gómez MD at 10:58 EDT ,
--- NOTE | 2024-06-22 09:47 | BD_ITS ---
STUDY: DUAL ENERGY X-RAY ABSORPTIOMETRY / DXA REASON FOR EXAM: Female, 69 years old. [id number] TECHNIQUE: Bone Mineral Density (BMD) measurements of lumbar spine and bilateral hips were obtained. COMPARISON: Comparison is made with prior study June 12, 2021. FINDINGS: Lumbar Spine (L1-L4): g/cm2 (0.841) / T-score (-1.8) / Z-score (0.2) Findings are suggestive of osteopenia with a moderate fracture risk. Left Femur Total: g/cm2 (0.715) / T-score (-1.9) / Z-score (-0.5) Left Femoral Neck: g/cm2 (0.752) / T-score (-0.9) / Z-score (0.8) Right Femur Total: g/cm2 (0.648) / T-score (-2.4) / Z-score (-1.0) Right Femoral Neck: g/cm2 (0.707) / T-score (-1.3) / Z-score (0.4) The T-Scores on the most recent prior examination were: Lumbar Spine (L1-L4): There has been improvement of bone density since the previous examination. Left Femur Total: which represents a worsening of 7.9%. Right Femur Total: which represents an improvement of 0.8%. BD/Dexa Bone Density Study IMPRESSION: The patient is considered osteopenic as outlined below according to World [place] Organization (WHO) criteria with a high fracture risk. There has been improvement of bone density since the previous examination. Reference Information: The T-score is the number of standard deviations above or below the standard which is normal for young adults at their peak bone mineral density. The World Health Organization (WHO) interprets the T-scores as follows: Above -1 Normal bone density Between -1 and -2.5 Osteopenia Equal to / or below -2.5 Osteoporosis As a practical clinical guideline, osteopenia may be graded as follows: Mild -1 through -1.5 Moderate -1.6 through -2.0 Severe -2.1 through -2.4 The Z-score is the number of standard deviations above or below age-matched controls. A Z-score of less than -1.5 would be considered abnormal. References: 1. NIH Osteoporosis and Related Bone Diseases www osteo.org 2. International Society for Clinical Densitometry www iscd.org 3. National Osteoporosis Foundation www nof.org Electronically Signed: Elliot Gómez MD at 8:03 EDT ,
== END | disposition home or self-care (01) ==
LOC: OPBD 09:27
PROVIDERS: PCP Family Medicine; Referring Provider Family Medicine; Visit Provider Family Medicine
DX: Z12.31 Encounter for screening mammogram for malignant neoplasm of breast (principal); Z78.0 Asymptomatic menopausal state
CPT/HCPCS: 77063; 77067; 77080

== ENCOUNTER 2024-07-06 08:00 | Outpatient (RCR) | payer MEDICARE, SELFPAY ==
--- NOTE | 2024-06-02 09:17 | HP.PTEVAL_ITS ---
Patient's Visit Information Visit Information Visit Information: GABBY Sun THURSDAY is a 69 year old F referred to Physical Therapy by Dr. Wilmer Arteaga MD with a diagnosis of Cervical Pain. Date of Evaluation: 06/02/24 Physical Therapist: Micaela Snowden DPT Visit Plan Frequency: 2x /Week Duration: 4 Weeks Plan: Focus on scapular strength/stabilization, postural correction- Manual and Modalities of US and TENS PRN HEP Given IE: postural correction, scap retractions, shoulder walk away flexion, upper trap stretch Subjective Subjective: Patient reports that she has been having BURKETT and saw Dr. Arteaga and he thinks that her neck muscles are messed up and that's what causing them. He had x-rays that shows that she has DDD and referred her to PT. She is not really having the BURKETT any more, but she is having cervical spine pain. She is taking muscle relaxers. The pain is located along the sides of the neck and out to the tips of the shoulders- the pain radiates to the hands. The pain is sharp and shooting. Constant pain. Worst: 9/10 Agg: nothing. Eases: muscle relaxers. No N/T in the fingers. She has some weakness in her hands but that is not new since the neck pain. Right hand dominate. She likes to sit during the day- watch TV, games on the tablet- she does get up to go outside and walk around to loosen things up a little bit. She feels the pain is just staying the same. Work: retired. She is fully I with all ADL's and cooking/cleaning/driving. Sleep: disturbed- right side sleeper. No MVA's or trauma that she can remember. No MRI or injections. PMHx/Meds: see list in chart. Objective Objective: Posture: forward head, rounded shoulders- can correct with verbal cues but does not maintain Gait: no deviation- good arm swing and trunk rotation Palpation: tender along upper traps, cervical paraspinals, sub occipitals ROM: Cervical Spine: Flexion: WNL, Extn: WNL, Rotation: WNL, SB: Right SB decreased by 25% and painful, Left: WNL, Shoulder: Right: WNL, Left: Flexion: 150 degrees Abd: 90 degrees- after AAROM she can perform full AROM, Elbow/Wrist: WNL bilateral Strength: Scap: poor, Shoulder: 4/5 throughout, Elbow: 5/5, Contract Mail Carrier: good Special Test: Spurlings: positive, Distraction: no change in s/s Balance/Special Test Scores Oswestry Low Back Score: 24 Goals Goal 1:: Patient will be I with HEP and progression Goal Time Frame: 4-6 Weeks Goal 2:: Patient will maintain proper posture t/o tx session to demo increased scap s/s Goal Time Frame: 4-6 Weeks Goal 3:: Patient will report no BURKETT for 1 week Goal Time Frame: 4-6 Weeks Goal 4:: Patient will demo full AROM of the cervical spine Goal Time Frame: 4-6 Weeks Goal 5:: Patient will report 80% improvement Goal Time Frame: 4-6 Weeks Rehabilitation Potential Physical Therapy Diagnosis: Patient presents with decreased scapular s/s, cervical ROM and muscular endurance leading to poor posture and increased pain Rehabilitation Potential: Fair Anticipated Interventions Therapeutic Exercise to Include: Strength training, Endurance training, Coordination, Agility training, Body mechanics, Postural training, Neuromotor development, Passive ROM, Active ROM, Dynamic Lumbar Stabilization and Scapular Strength/Stabilization For the Purpose of:: To improve muscle performance and motor function Manual Therapy Techniques to Include: Soft tissue mobilization For the Purpose of:: To improve ability to perform ADL's TENS: Yes Cryotherapy (ice pack, ice massage): Yes Thermo therapy (hot pack): Yes Ultrasound (thermal/non thermal): Yes For the Purpose of:: To decrease pain Text: Thank you for the opportunity to evaluate your patient. For Medicare and Medicare HMO plans, please review the plan of care and approve it. It will need to be FAXED BACK to us at [phone] for Medicare purposes. For Medicare only, by signing this I certify the plan of care. Please let me know if there are questions or concerns regarding this plan of care. Physician Signature: _Date:
--- NOTE | 2024-07-06 08:58 | HP.PTDCSUM ---
Discharge Summary D/C summary: It has been my pleasure to treat GABBY Sun THURSDAY referred by Dr. Wilmer Arteaga MD, with the diagnosis of Cervical Pain for a total of 7 visit(s). Discharge Date: Please see the following information for a summary of their discharge status. Subjective Subjective: Pt reports her L shoulder pain ranges from 7-9/10. No improvement at this time Pain Bilateral Neck: Pain Intensity (Out of 10): 0 shoulder: Pain Intensity (Out of 10): 7 Overall Improvement % Improvement: 0 Objective Objective/Function: L shoulder pain ranges from 7-9/10, No c/s pain today Pt is I with HEP Pt has experienced no BURKETT's for the past week Pt has full AROM of c/s with exception to R SB which is significantly limited Pt has progressed well with neck progressions, but L shoulder pain is severe Goals Goal 1:: Patient will be I with HEP and progression Goal Progress: Goal Met Goal 2:: Patient will maintain proper posture t/o tx session to demo increased scap s/s Goal Progress: Progressing Goal 3:: Patient will report no BURKETT for 1 week Goal Progress: Goal Met Goal 4:: Patient will demo full AROM of the cervical spine Goal Progress: Progressing Goal 5:: Patient will report 80% improvement Goal Progress: Not Progressing Plan Plan: Recommend discontinuation at this time secondary to severity of L shoulder pain, and RTD for further assessment D/C Information d/c sentence: If there are questions or concerns regarding this patient's physical therapy, please feel free to call me at [phone]. Thank you for the referral of this patient. Sincerely, Souleymane Chávez, PT, ATC Balance/Gait/Functional tests Balance/Special Test Scores Oswestry Low Back Score: 24 Oswestry Neck Score: 28 Improvement % Improvement: 0
== END 2024-07-06 13:21 | disposition home or self-care (01) ==
LOC: PT 08:00
PROVIDERS: PCP Family Medicine; Referring Provider Family Medicine; Visit Provider Family Medicine
DX: M50.30 Other cervical disc degeneration, unspecified cervical region (principal)
CPT/HCPCS: 97014; 97110; 97162; 97530; G0283

== ENCOUNTER → 2024-07-08 | Outpatient (CLI) | payer MEDICARE, SELFPAY ==
--- NOTE | 2024-07-08 11:17 | RAD_ITS ---
STUDY: X-RAY - LEFT SHOULDER REASON FOR EXAM: Female, 69 years old. Pain. TECHNIQUE: 5 views of the left shoulder. COMPARISON: None. FINDINGS: Normal glenohumeral articulation. There is mild acromioclavicular arthrosis. Normal acromion. Normal humeral head and visualized proximal humerus. The soft tissue structures are unremarkable. There is no demonstrated fracture. Normal visualized pulmonary apex. RAD/Shoulder min 2 Views IMPRESSION: Mild acromioclavicular arthrosis. Electronically Signed: Anthony Castillo MD at 15:49 EDT ,
== END | disposition home or self-care (01) ==
LOC: MTRAD 11:15
PROVIDERS: PCP Family Medicine; Referring Provider Family Medicine; Visit Provider Family Medicine
DX: M25.512 Pain in left shoulder (principal)
CPT/HCPCS: 73030

== ENCOUNTER 2024-08-04 09:15 | Outpatient (CLI) | payer MEDICARE, SELFPAY ==
[2024-08-04 09:22] VITALS: BP 108/74; PULSE 93; RESP 16; TEMP 36.3; O2SAT 94
[2024-08-04] MEDS: DENOSUMAB 60 MG/ML SC (09:30)
== END 2024-08-04 23:59 | disposition home or self-care (01) ==
LOC: MEDOUTP 09:16
PROVIDERS: PCP Family Medicine; Referring Provider Family Medicine; Visit Provider Family Medicine
DX: M85.80 Other specified disorders of bone density and structure, unspecified site (principal)
CPT/HCPCS: 96372; J0897

== ENCOUNTER 2024-12-01 12:00 | Outpatient (RCR) | payer MEDICARE, SELFPAY ==
--- NOTE | 2024-11-21 18:49 | HP.PTEVAL_ITS ---
Patient's Visit Information Visit Information Visit Information: GABBY Sun THURSDAY is a 69 year old F referred to Physical Therapy by Dr. Kash Sanford DPM with a diagnosis of R FOOT PAIN, METATARSALGIA AND CAPSULITIS. Date of Evaluation: 11/21/24 Physical Therapist: Rosangela Ham PT, Cert MDT Visit Plan Frequency: 2-3x /Week Duration: 4-6 Weeks Plan: R FOOT MODALITIES NEEDED TO DESENSATIZE R GREAT TOE REGION INCLUDING, CONTRAST BATH, UNDERWATER ULTRASOUND, LIGHT TOUCH, FLUIDOTHERAPY, PARAFFIIN, OR STM TOLERATED. GENTLE R FOOT ROM, STRETCHING AND STRENGTHEING TO HELP MEET SET GOALS. GAIT AND BALANCE TRAINING. ASSISTIVE DEVICE INSTRUCTION NEEDED. Subjective Subjective: Work/Leisure: RETIRED Present symptoms: PAIN BASICALLY JUST AT THE BIG TOE AND INTO THE FOOT ON THAT SIDE NOW. SOMETIMES BUT RARELY PAIN INTO THE NEXT COUPLE OF TOES. Present since: 2-3 MONTHS AGO Pain Scale: WORST 9/10, LEAST 0/10 Currently: 1/10 Is it getting better, worse or staying the same: STAYING THE SAME Commenced as a result of: NO APPARENT REASON HOWEVER IT STARTED HURTING AFTER HAVING AN EX SESSION AT [employer] 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 Symptoms at onset: SUDDEN SHARP PAIN IN FOOT NEAR TOES WHEN STEPPING DURING WALKING Worse: WALKING/WEIGHT BEARING/STEPPING ON IT/CLIMBING STAIRS. EVEN SETTING FOOT DOWN IN SITTING. Better: BEING OFF OF FOOT/ NON- WEIGHT BEARING - NO WEIGHT ON IT AT ALL. NEW SHOES. HAVING SHOES ON HELPS TO A POINT. SHOE INSERTS BOUGHT FROM [employer] BUT NOT CUSTOM MADE ALSO HELP TO A POINT. 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 ORAL ANTI-INFLAMMATORY - STATES SHE IS STILL TAKING IT BUT NOT SURE IT IS HAVING AN EFFECT. Gait: NOT USING ANY AD'S. CAN WALK NORMAL AT TIMES AND THEN ALL OF A SUDDEN CAN'T. SOMETIMES CAN WALK 10 TO 15 MIN NORMAL AND THEN CAN'T. Imaging: PATIENT REPORTS HAVING X-RAYS AT THE PODIATRISTS OFFICE BUT SHE IS UNAWARE OF THE RESULTS. DENIES HAVING MRI. PMH/Recent major surgery: Cervical radiculopathy Chronic pain Hypercholesterolemia Osteoporosis COPD (chronic obstructive pulmonary disease) Objective Objective: THIS PATIENT AMBULATES INDEP'LY INTO PT WITHOUT ANY ASSITIVE DEVICES LIMPING ON HER R LE WITH A STEP TO PATTERN AND REACHING FOR EXTERNAL SUPPORTS. SHE IS IN REGULAR TENNIS SHOES WITH INSERTS AND IS AVOIDING BEARING WEIGHT ON HER R FOREFOOT ESPECIALLY MEDIALLY AND HAS NO TOE OFF PHASE OF GAIT. SHE EXHIBITS PAIN BEHAVIOR WITH SETTING HER R FOOT DOWN IN SITTING, DONING AND DOFFING HER R SHOE AND WITH VERY LIGHT TOUCH/PALPATION OF HER R GREAT TOE AND R FIRST METATARSAL. SENSATION: R THIGH, LEG AND FOOT LIGHT TOUCH SENSATION IS INTACT AND WNL EXCEPT R GREAT TOE AND FIRST METATARSAL. ROM: R HIP, KNEE, AND ANKLE AROM IS WFL WITHOUT C/O PAIN. SHE CAN EVEN ACTIVELY MOVE ALL OF HER TOES INCLUEDING HER R GREAT TOE (50% ROM) THROUGH FUNCTIONAL ROM WITH ONLY C/O MILD R GREAT TOE PAIN. HER MAIN PAIN IS WHEN PRESSURE IS APPLIED VS OPEN CHAIN MVMT. STRENGTH: R HIP 4/5 (DENIES PAIN), R KNEE 5/5 (DENIES PAIN), R ANKLE DORSI FLEX 4/5 (C/O MILD GREAT TOE PAIN), R ANKLE PLANTAR FLEXION (PATIENT UNABLE TO TOLERATE TESTING). OTHER: PATIENT IS UNABLE TO TOLERATE BEING TOUCHED IN THE R GREAT TOE OR FIRST METATARSAL REGION AT ALL DURING EXAM TODAY. SHE REPORTS SOMETIMES SHE CAN AND SOMETIMES SHE CAN'T. THIS PT INSTRUCTED HER IN PROPER USE AND FITTING OF STRAIGHT CANE TODAY FOR USE WHEN UNALBE TO BEAR WEIGHT ON THIS AREA AND DISCUSSED POC. PATIENT AGREEABLE. PATIENT RETURN DEMONSTRATED GOOD RESPONSE AND SEQUENCING WITH CANE AFTER INSTRUCTION AND LEFT WITH LESS C/O PAIN AND BETTER GAIT THAN ARRIVAL. Sitting/Standing Posture: Lordosis: Lateral shift: Relevant shift: Active Correction of posture: Other Observations: Sensory deficit: ROM deficit: Motor deficit: Reflexes: Dural Signs: Lumbar mvmt loss: flex - ext - R SG - L SG - Core strength: Palpation: Balance/Special Test Scores Lower Extremity Functional Score: 39 Goals Goal 1:: DECREASE C/O R FOOT PAIN BY AT LEAST 50% TO EASE ADL'S Goal Time Frame: 4-6 Weeks Goal 2:: NORMALIZE GAIT ON LEVEL SURFACES WITH LEAST ASSISTIVE DEVICE Goal Time Frame: 4-6 Weeks Goal 3:: NORMALIZE GAIT UP AND DOWN STEPS WITH RECIPROCOL PATTERN AND ONE HR Goal Time Frame: 4-6 Weeks Goal 4:: PATIENT WILL HAVE R FOOT ROM WFL OPEN AND CLOSED CHAIN WITH 0-2/10 PAIN Goal Time Frame: 4-6 Weeks Goal 5:: PATIENT WILL HAVE R FOOT 4/5 STRENGTH WITH 0-2/10 C/O PAIN Goal Time Frame: 4-6 Weeks Goal 6:: AT LEAST 10 POINT IMPROVEMENT IN LEFS SCORE Goal Time Frame: 4-6 Weeks Rehabilitation Potential Physical Therapy Diagnosis: R GREAT TOE REGION PAIN AND DIFFICULTY WITH GAIT. Rehabilitation Potential: Fair Anticipated Interventions Patient/Client Instruction: Educate patient on: Condition, Plan of Care and Risk Factors For the Purpose of:: To improve self management Therapeutic Exercise to Include: Strength training, Balance training, Flexibilty training, Gait and locomotor training, Neuromotor development, Passive ROM and Active ROM For the Purpose of:: To decrease pain, To increase ROM, To improve nutrient delivery to tissue, To improve muscle performance and motor function, To increase tolerance to activity/condition/position, To improve ability of physical actions for home/community/work/leisure, To improve gait and locomotor functions, To increase flexibility/ROM and To improve self management Manual Therapy Techniques to Include: Mobilization and Soft tissue mobilization Comment: DESENSATIZATION For the Purpose of:: To decrease pain and To decrease swelling/inflammation Ultrasound (thermal/non thermal): Yes (UNDERWATER) Paraffin bath: Yes Fluidotherapy: Yes Comment: CONSTRAST BATH For the Purpose of:: To decrease pain and Other Other: DESENSATIZATION Text: Thank you for the opportunity to evaluate your patient. For Medicare and Medicare HMO plans, please review the plan of care and approve it. It will need to be FAXED BACK to us at [phone] for Medicare purposes. For Medicare only, by signing this I certify the plan of care. Please let me know if there are questions or concerns regarding this plan of care. Physician Signature: Date:
== END 2024-12-01 19:00 | disposition home or self-care (01) ==
LOC: PT 12:00
PROVIDERS: PCP Family Medicine; Referring Provider Student in an Organized Health Care Education/Training Program; Visit Provider Student in an Organized Health Care Education/Training Program
DX: M77.41 Metatarsalgia, right foot (principal); M77.51 Other enthesopathy of right foot and ankle
CPT/HCPCS: 97035; 97110; 97162

== ENCOUNTER 2025-01-10 11:00 | Emergency (ER) | payer MEDICARE, SELFPAY ==
[2025-01-10] VITALS (13 sets, daily range): BP systolic 108–175; BP diastolic 63–111; PULSE 85–107; RESP 14–24; TEMP 36.3–36.6; O2SAT 91–100; BMI 23.1
--- NOTE | 2025-01-10 12:15 | EX.ED.DYSGE1 ---
HPI History of Present Illness Chief Complaint: Wound Informant: patient Narrative Narrative: 69-year-old female presenting with a tender swollen area on her face below her chin, started a week ago as a small spot on the skin nothing intraorally, it has been growing and spreading caudally. She states she has had several visits to urgent care, she has not had any incision and drainage, they just put her on antibiotics. She states this morning it started to drain and it is extremely painful. She denies any fevers, chills, systemic symptoms. She states her COPD has been stable and not giving her any acute issues. She is not on home oxygen. She denies any problems breathing or swallowing with regards to the past week associated with this tender swollen area. [facility] Medical History Cervical radiculopathy Chronic pain Hypercholesterolemia Osteoporosis COPD (chronic obstructive pulmonary disease) Home Medications ?Medication ?Instructions ?Recorded ?Last Taken ?Type albuterol sulfate 90 mcg/actuation 2 puff inhalation 4X/DAY PRN 06/14/24 06/14/24 History aerosol inhaler shortness of breath or wheezing atorvastatin 20 mg tablet 20 mg PO DAILY 06/14/24 06/14/24 History denosumab 60 mg/mL subcutaneous 60 mg subcut [id number] 01/09/25 Unknown History syringe (Prolia) hydrocodone-acetaminophen 5-325mg 1 tab PO Q6H PRN PRN Pain 3 days 01/10/25 Unknown Rx 5mg-325mg #10 TABLETS sulfamethoxazole 800 1 tab PO BID #20 TABLETS 01/10/25 Unknown Rx mg-trimethoprim 160 mg tablet Allergy/AdvReac Type Severity Reaction Status Date / Time No Known Allergies Allergy Verified 01/09/25 08:48 Family History no significant family his Surgical History History of dental surgery Social History Smoking Status: Heavy Smoker (>10/day) alcohol intake: never substance use type: does not use ROS ROS ED Constitutional Constitutional ED: Denies chills or fever(s) Eyes Eyes: Denies change in vision or diplopia ENT ENT ED: Denies rhinorrhea or sore throat Cardiovascular Cardiovascular: Denies chest pain or palpitations Respiratory/Chest Respiratory/Chest: Denies cough or dyspnea Gastrointestinal Gastrointestinal: Denies abdominal pain, diarrhea, nausea or vomiting Genitourinary Genitourinary ED: Denies dysuria or hematuria Musculoskeletal Musculoskeletal: Reports neck pain; Denies back pain Integumentary Reports abscess; Denies rash Neurologic Neurologic: Denies headache(s), paresthesias or weakness Psychiatric Psychiatric: Denies anxiety or suicidal thoughts EXAM Physical Exam Const Vital Signs: 01/10/25 11:02 01/10/25 11:04 01/10/25 12:04 Temperature 97.3 F L 97.3 F L 97.3 F L Temperature Source Temporal Oral Oral Pulse Rate 97 94 91 Pulse Rate [1 (Initial Baseline)] Pulse Rate [2] Pulse Rate [3] Pulse Rate [4] Pulse Rate [5] Respiratory Rate 20 H 19 H 19 H Respiratory Rate [1 (Initial Baseline)] Respiratory Rate [2] Respiratory Rate [3] Respiratory Rate [4] Respiratory Rate [5] Blood Pressure 108/63 108/63 140/81 H Blood Pressure [1 (Initial Baseline)] Blood Pressure [2] Blood Pressure [3] Blood Pressure [4] Blood Pressure [5] Blood Pressure Mean 78 78 100 Baseline BP Pulse Ox 100 100 93 Oxygen Delivery Method Room Air Room Air Room Air Oxygen Delivery Method [1 (Initial Baseline)] Oxygen Delivery Method [2] Oxygen Delivery Method [3] Oxygen Delivery Method [4] Oxygen Delivery Method [5] Oxygen Flow Rate (L/min) Oxygen Flow Rate (L/min) [1 (Initial Baseline)] Oxygen Flow Rate (L/min) [2] Oxygen Flow Rate (L/min) [3] Oxygen Flow Rate (L/min) [4] Oxygen Flow Rate (L/min) [5] Fraction of Inspired Oxygen (FIO2) [1 (Initial Baseline)] Fraction of Inspired Oxygen (FIO2) [2] EtCo2 (Normal 35-45 , high quality CPR 10-20 & ROSC>/=40mmHg EtCo2 (Normal 35-45 , high quality CPR 10-20 & ROSC>/=40mmHg [1 (Initial Baseline)] EtCo2 (Normal 35-45 , high quality CPR 10-20 & ROSC>/=40mmHg [2] EtCo2 (Normal 35-45 , high quality CPR 10-20 & ROSC>/=40mmHg [3] EtCo2 (Normal 35-45 , high quality CPR 10-20 & ROSC>/=40mmHg [4] EtCo2 (Normal 35-45 , high quality CPR 10-20 & ROSC>/=40mmHg [5] 01/10/25 13:00 01/10/25 13:00 01/10/25 14:00 Temperature 97.3 F L 97.3 F L Temperature Source Oral Oral Pulse Rate 94 90 Pulse Rate [1 (Initial Baseline)] Pulse Rate [2] Pulse Rate [3] Pulse Rate [4] Pulse Rate [5] Respiratory Rate 21 H 22 H Respiratory Rate [1 (Initial Baseline)] Respiratory Rate [2] Respiratory Rate [3] Respiratory Rate [4] Respiratory Rate [5] Blood Pressure 140/81 H 140/81 H 148/81 H Blood Pressure [1 (Initial Baseline)] Blood Pressure [2] Blood Pressure [3] Blood Pressure [4] Blood Pressure [5] Blood Pressure Mean 100 100 103 Baseline BP Pulse Ox 92 93 Oxygen Delivery Method Room Air Room Air Oxygen Delivery Method [1 (Initial Baseline)] Oxygen Delivery Method [2] Oxygen Delivery Method [3] Oxygen Delivery Method [4] Oxygen Delivery Method [5] Oxygen Flow Rate (L/min) Oxygen Flow Rate (L/min) [1 (Initial Baseline)] Oxygen Flow Rate (L/min) [2] Oxygen Flow Rate (L/min) [3] Oxygen Flow Rate (L/min) [4] Oxygen Flow Rate (L/min) [5] Fraction of Inspired Oxygen (FIO2) [1 (Initial Baseline)] Fraction of Inspired Oxygen (FIO2) [2] EtCo2 (Normal 35-45 , high quality CPR 10-20 & ROSC>/=40mmHg EtCo2 (Normal 35-45 , high quality CPR 10-20 & ROSC>/=40mmHg [1 (Initial Baseline)] EtCo2 (Normal 35-45 , high quality CPR 10-20 & ROSC>/=40mmHg [2] EtCo2 (Normal 35-45 , high quality CPR 10-20 & ROSC>/=40mmHg [3] EtCo2 (Normal 35-45 , high quality CPR 10-20 & ROSC>/=40mmHg [4] EtCo2 (Normal 35-45 , high quality CPR 10-20 & ROSC>/=40mmHg [5] 01/10/25 14:54 01/10/25 14:54 01/10/25 15:16 Temperature 97.3 F L Temperature Source Oral Pulse Rate 88 Pulse Rate [1 (Initial Baseline)] Pulse Rate [2] Pulse Rate [3] Pulse Rate [4] Pulse Rate [5] Respiratory Rate 16 Respiratory Rate [1 (Initial Baseline)] Respiratory Rate [2] Respiratory Rate [3] Respiratory Rate [4] Respiratory Rate [5] Blood Pressure 143/74 H 143/74 H Blood Pressure [1 (Initial Baseline)] Blood Pressure [2] Blood Pressure [3] Blood Pressure [4] Blood Pressure [5] Blood Pressure Mean 97 97 Baseline BP Pulse Ox 94 Oxygen Delivery Method Room Air Oxygen Delivery Method [1 (Initial Baseline)] Oxygen Delivery Method [2] Oxygen Delivery Method [3] Oxygen Delivery Method [4] Oxygen Delivery Method [5] Oxygen Flow Rate (L/min) Oxygen Flow Rate (L/min) [1 (Initial Baseline)] Oxygen Flow Rate (L/min) [2] Oxygen Flow Rate (L/min) [3] Oxygen Flow Rate (L/min) [4] Oxygen Flow Rate (L/min) [5] Fraction of Inspired Oxygen (FIO2) [1 (Initial Baseline)] Fraction of Inspired Oxygen (FIO2) [2] EtCo2 (Normal 35-45 , high quality CPR 10-20 & ROSC>/=40mmHg 31 EtCo2 (Normal 35-45 , high quality CPR 10-20 & ROSC>/=40mmHg [1 (Initial Baseline)] EtCo2 (Normal 35-45 , high quality CPR 10-20 & ROSC>/=40mmHg [2] EtCo2 (Normal 35-45 , high quality CPR 10-20 & ROSC>/=40mmHg [3] EtCo2 (Normal 35-45 , high quality CPR 10-20 & ROSC>/=40mmHg [4] EtCo2 (Normal 35-45 , high quality CPR 10-20 & ROSC>/=40mmHg [5] 01/10/25 15:16 01/10/25 15:18 01/10/25 15:40 Temperature Temperature Source Pulse Rate 85 91 Pulse Rate [1 (Initial Baseline)] 88 Pulse Rate [2] 89 Pulse Rate [3] 93 Pulse Rate [4] 107 H Pulse Rate [5] 95 Respiratory Rate 24 H 24 H Respiratory Rate [1 (Initial Baseline)] 21 H Respiratory Rate [2] 16 Respiratory Rate [3] 14 Respiratory Rate [4] 23 H Respiratory Rate [5] 17 Blood Pressure 161/89 H 111/87 H Blood Pressure [1 (Initial Baseline)] 143/83 H Blood Pressure [2] 149/85 H Blood Pressure [3] 168/111 H Blood Pressure [4] 175/98 H Blood Pressure [5] 175/98 H Blood Pressure Mean Baseline BP 161/89 Pulse Ox 97 92 Oxygen Delivery Method Nasal Cannula Nasal Cannula Oxygen Delivery Method [1 (Initial Baseline)] Nasal Cannula Oxygen Delivery Method [2] Nasal Cannula Oxygen Delivery Method [3] Nasal Cannula Oxygen Delivery Method [4] Nasal Cannula Oxygen Delivery Method [5] Nasal Cannula Oxygen Flow Rate (L/min) 2 2 Oxygen Flow Rate (L/min) [1 (Initial Baseline)] 2 Oxygen Flow Rate (L/min) [2] 3 Oxygen Flow Rate (L/min) [3] 3 Oxygen Flow Rate (L/min) [4] 3 Oxygen Flow Rate (L/min) [5] 2 Fraction of Inspired Oxygen (FIO2) [1 (Initial Baseline)] 2 Fraction of Inspired Oxygen (FIO2) [2] 3 EtCo2 (Normal 35-45 , high quality CPR 10-20 & ROSC>/=40mmHg 27 EtCo2 (Normal 35-45 , high quality CPR 10-20 & ROSC>/=40mmHg [1 (Initial Baseline)] 28 EtCo2 (Normal 35-45 , high quality CPR 10-20 & ROSC>/=40mmHg [2] 30 EtCo2 (Normal 35-45 , high quality CPR 10-20 & ROSC>/=40mmHg [3] 26 EtCo2 (Normal 35-45 , high quality CPR 10-20 & ROSC>/=40mmHg [4] 27 EtCo2 (Normal 35-45 , high quality CPR 10-20 & ROSC>/=40mmHg [5] 30 01/10/25 15:45 01/10/25 15:48 01/10/25 15:50 Temperature 97.3 F L Temperature Source Oral Pulse Rate 94 91 93 Pulse Rate [1 (Initial Baseline)] Pulse Rate [2] Pulse Rate [3] Pulse Rate [4] Pulse Rate [5] Respiratory Rate 24 H 20 H 22 H Respiratory Rate [1 (Initial Baseline)] Respiratory Rate [2] Respiratory Rate [3] Respiratory Rate [4] Respiratory Rate [5] Blood Pressure 152/88 H 152/88 H 150/87 H Blood Pressure [1 (Initial Baseline)] Blood Pressure [2] Blood Pressure [3] Blood Pressure [4] Blood Pressure [5] Blood Pressure Mean 109 Baseline BP Pulse Ox 92 94 91 Oxygen Delivery Method Nasal Cannula Room Air Room Air Oxygen Delivery Method [1 (Initial Baseline)] Oxygen Delivery Method [2] Oxygen Delivery Method [3] Oxygen Delivery Method [4] Oxygen Delivery Method [5] Oxygen Flow Rate (L/min) 1 Oxygen Flow Rate (L/min) [1 (Initial Baseline)] Oxygen Flow Rate (L/min) [2] Oxygen Flow Rate (L/min) [3] Oxygen Flow Rate (L/min) [4] Oxygen Flow Rate (L/min) [5] Fraction of Inspired Oxygen (FIO2) [1 (Initial Baseline)] Fraction of Inspired Oxygen (FIO2) [2] EtCo2 (Normal 35-45 , high quality CPR 10-20 & ROSC>/=40mmHg 26 32 EtCo2 (Normal 35-45 , high quality CPR 10-20 & ROSC>/=40mmHg [1 (Initial Baseline)] EtCo2 (Normal 35-45 , high quality CPR 10-20 & ROSC>/=40mmHg [2] EtCo2 (Normal 35-45 , high quality CPR 10-20 & ROSC>/=40mmHg [3] EtCo2 (Normal 35-45 , high quality CPR 10-20 & ROSC>/=40mmHg [4] EtCo2 (Normal 35-45 , high quality CPR 10-20 & ROSC>/=40mmHg [5] Positive well nourished and well developed General Appearance ED: well developed and NAD HEENT Reports moist mucous membranes HEENT Narrative: Patient has a large tender tightly swollen and erythematous indurated abscess submental. The erythema extends caudally to the manubrium. There is an obvious nidus closer to her chin to the right of midline where there is active pus draining out of it. Intraorally, the exam is normal. Posterior pharynx is clear, there is no stridor, her tongue is normal, there is no elevation and when she elevates it the submental tissues are nondistended and nontender. There is no trismus. normocephalic and atraumatic Eyes PERRL and EOMs intact bilaterally Neck full ROM and supple Resp normal respiratory effort and clear to auscultation bilaterally Cardio regular rate, regular rhythm and no murmurs GI non-tender and non-distended Auscultation: normoactive bowel sounds Palpation: soft Back/Spine no CVA tenderness General Back: other FROM Extremity normal to inspection General Extremety ED: Negative for edema, pulses abnormal or tenderness General Extremity: Negative for edema or pulses abnormal Neuro oriented x3, CN's II-XII intact bilaterally and no sensory deficits noted Sensorium / Orientation: awake and alert Motor Exam: strength 5/5 throughout Skin no rashes or lesions noted and no wounds MDM MDM MDM Narrative Medical decision making narrative: This is a large submental abscess but without gianni Ludwigs angina or symptoms of airway/esophageal involvement. Patient was sedated for this in addition to the abscess drained and packed see the procedure note. Patient was monitored while she recovered, I discussed with Dr. Stewart for outpatient ENT follow-up, and am going to change the patient's antibiotic from amoxicillin/clavulanate to Bactrim, assuming this is MRSA until proven otherwise. She is to call for an appt with ENT and they will see her before the weekend. Management Discussion w/another healthcare provider: Assistant Professor Of Mathematics (ENT) Procedures Procedural Sedation 1 (Initial Baseline): Consent Signed: Yes Any Problems With Anesthesia: No Sedation medication: Versed Dose: 4 Route: IV Total Moderate Sedation Units: 13 Maliampati Score: Class II ASA Classification: II Other Procedures Procedure(s): Complex abscess incision and drainage: After procedural sedation and informed consent, locally anesthetized the patient with 4 cc of plain 1% lidocaine, incised with a #10 blade, probed and deloculated, large amount of purulent material was obtained and sent for a culture. Cavity was irrigated, large amount of pus was expressed, and the large submental cavity was packed with iodoform gauze. There was no significant bleeding from the procedure, suggesting there were no jugular vessels involved. Patient is able to speak normally after the procedure there were no complications, tolerated well. Dressed with bacitracin. Discharge Plan Triage Chief Complaint: Wound ED Provider: Chaka Montenegro Dx/Rx/DC Orders Clinical Impression: Submental abscess Instructions: ED Abscess Incision And Drainage Prescriptions: New sulfamethoxazole-trimethoprim 800-160 mg tablet 1 tab PO BID Qty: 20 0RF hydrocodone-acetaminophen 5-325 mg tablet 1 tab PO Q6H PRN PRN (Reason: Pain) 3 Days Qty: 10 0RF Continued Prolia 60 mg/mL syringe 60 mg subcut [id number] atorvastatin 20 mg tablet 20 mg PO DAILY albuterol sulfate 90 mcg/actuation HFA aerosol inhaler 2 puff INHALATION 4X/DAY PRN (Reason: shortness of breath or wheezing) Discontinued amoxicillin-pot clavulanate 875-125 mg tablet 1 tab PO BID Qty: 20 0RF Primary Care Provider: Wilmer Arteaga Referrals: Wilmer Arteaga MD [Primary Care Provider] - Jeff Stewart MD [Med Staff - Active Staff] - 01/12/25 Activity Restrictions/Additional Instructions: Change gauze dressing over drainage site as needed, may need to be couple times in the first 24 hours. Try to leave gauze packing in place until you are seen by ENT on or Thursday; call for appointment date and time. Print Language: Persian Disposition Disposition: Home, Self Care
[2025-01-10] MEDS: fentaNYL 100 MCG/2 ML Ampul 50 MCG IV ×2 (12:48→14:22)
[2025-01-10] MEDS: Lidocaine 1% (20 ml mdv) 20 ML Vial INFILT (12:49)
[2025-01-10] MEDS: Midazolam 2 MG/2 ML Syringe IV ×2 (12:49→15:26)
[2025-01-10] MEDS: 0.9% Normal Saline (1000mL) 1,000 ML 100 ML IV (12:52)
== END 2025-01-10 16:43 | disposition home or self-care (01) ==
PROVIDERS: Emergency Provider Emergency Medicine; PCP Family Medicine; Visit Provider Emergency Medicine
DX: L02.01 Cutaneous abscess of face (principal); J44.9 Chronic obstructive pulmonary disease, unspecified; E78.00 Pure hypercholesterolemia, unspecified; F17.200 Nicotine dependence, unspecified, uncomplicated; M54.2 Cervicalgia
CPT/HCPCS: 10061; 87070; 87205; 96374; 96375; 96376; 99152; 99284; A4216

== ENCOUNTER 2025-02-03 08:36 | Outpatient (CLI) | payer MEDICARE, SELFPAY ==
[2025-02-03 08:41] VITALS: BP 124/62; PULSE 73; RESP 16; TEMP 36.1; O2SAT 98
[2025-02-03] MEDS: DENOSUMAB 60 MG/ML SC (08:44)
== END 2025-02-03 23:59 | disposition home or self-care (01) ==
LOC: MEDOUTP 08:36
PROVIDERS: PCP Family Medicine; Referring Provider Family Medicine; Visit Provider Family Medicine
DX: M85.80 Other specified disorders of bone density and structure, unspecified site (principal)
CPT/HCPCS: 96372; J0897

== ENCOUNTER → 2025-06-17 | Outpatient (CLI) | payer MEDICARE, SELFPAY ==
--- OUTSIDE RECORDS SUMMARY | 2025-06-17 07:48 | XMS RPT_ITS | CCD ---
Author Organization [facility] CliniSynj Care Team Providers Care Supervisor Extruding Department Name Role Phone DEISY ARTEAGA Referring Unavailabl e Chandler MARION, Dr. Guillen Primary Care Provider Juvenal GOYAL, Dr. Hewitt Attending Provider Juvenal GOYAL, Dr. Hewitt Referring Provider Dr. Deisy Arteaga MD Referring Provider [phone] Chao LEMUS-Tru Treviño Attending Provider Blas Anderson Attending Provider Lan MARION, Dr. Null Emergency Provider Dr. Chaka Montenegro MD Attending Provider Chandler MARION, Dr. Guillen Attending Provider Chandler MARION, Dr. Guillen Primary Care Provider Chandler MARION, Dr. Guillen Referring Provider Deisy Arteaga Attending Unavailable Deisy Arteaga Referring Unavailable Chandler, Christophprice Primary Care Unavailable Deisy Arteaga Attending Unavailable Deisy Arteaga Referring Unavailable Stalinney, Christopher Primary Care Unavailable Deisy Arteaga Attending Unavailable Chandler, Deisy Referring Unavailable Stalinney, Christophprice Primary Care Unavailable Deisy Arteaga Attending Unavailable Chandler, Christophprice Referring Unavailable Ranney, Christopher Primary Care Unavailable Deisy Arteaga Attending Unavailable Ranney, Christophprice Referring Unavailable Ranney, Christopher Primary Care Unavailable Tru Guidry NP Attending Unavailable Chandler, Deisy Referring Unavailable Ranney, Christopher Primary Care Unavailable Blas Anderson Attending Unavailable Stalinney, Christopher Primary Care Unavailable ChandlerDeisy Referring Unavailable Deisy Arteaga Attending Unavailable Deisy Arteaga Referring Unavailable Deisy Arteaga Primary Care Unavailable Deisy Arteaga Primary Care Unavailable Deisy Arteaga Attending Unavailable Deisy Arteaga Referring Unavailable Deisy Arteaag Attending Unavailable Deisy Arteaga Referring Unavailable Deisy Arteaga Primary Care Unavailable Deisy Arteaga Primary Care Unavailable Garry Carrillo Attending Unavailable Chaka Montenegro Attending Unavailable Chandler [facility] Primary Care Unavailable Kash Sanford Attending Unavailable Kash Sanford Referring Unavailable [facility] Primary Care Unavailable Medications Current Medications Medication Drug Class(es) Dates Sig (Normalized) Sig (Original) acetaminophen 325 mg / HYDROcodone bitartrate 5 mg oral tablet (3 sources) Opioid Agonist Start: 01-10-2025 take 1 tablet by mouth every six hours as needed for pain Hydrocodone-Aceta minophen 5-325 mg tablet Active 1 {tbl} PO EVERY 6 HOURS NEEDED as needed for Pain 10 3 0 January 10, 2025 Abscess of submental region Cutaneous abscess of face [id number] 200 actuat albuterol 0.09 mg/actuat metered dose inhaler (3 sources) beta2-Adrenergic Agonist Start: 06-14-2024 Albuterol Sulfate 90 mcg/actuation HFA aerosol inhaler Active 2 NMA INHALATION 4 TIMES DAILY as needed for shortness of breath or wheezing June 14, 2024 12:00am atorvastatin 20 mg oral tablet (3 sources) HMG-CoA Reductase Inhibitor Start: 06-14-2024 take 1 tablet by mouth once daily Atorvastatin 20 mg tablet Active 20 mg PO DAILY June 14, 2024 12:00am 1 ml denosumab 60 mg/ml prefilled syringe (3 sources) RANK Ligand Inhibitor Start: 01-09-2025 Denosumab (Prolia) 60 mg/mL syringe Active 60 mg SC every 6 months January 09, 2025 12:00am sulfamethoxazole 800 mg / trimethoprim 160 mg oral tablet (3 sources) Dihydrofolate Reductase Inhibitor Antibacterial, Sulfonamide Antimicrobial Start: 01-10-2025 Sulfamethoxazole- Trimethoprim 800-160 mg tablet Active 1 {tbl} PO TWICE A DAY 20 0 January 10, 2025 12:00am Completed/Discontinued Medications Medication Drug Class(es) Dates Sig (Normalized) Sig (Original) alendronic acid 70 mg oral tablet (3 sources) Bisphosphonate Start: 06-14-2024 End: 01-09-2025 Alendronate 70 mg tablet Discontinued 70 mg PO SA June 14, 2024 12:00am January 09, 2025 8:48am amoxicillin 500 mg oral tablet (3 sources) Penicillin-class Antibacterial Start: 01-06-2025 End: 01-09-2025 take 1 tablet by mouth three times daily Amoxicillin 500 mg tablet Discontinued 500 mg PO THREE TIMES A DAY 30 10 0 January 06, 2025 1:00am January 15, 2025 12:00am January 09, 2025 8:57am amoxicillin 875 mg / clavulanate 125 mg oral tablet (3 sources) Penicillin-class Antibacterial Start: 01-09-2025 End: 01-10-2025 Amoxicillin-Pot Clavulanate 875-125 mg tablet Discontinued 1 {tbl} PO TWICE A DAY 20 0 January 09, 2025 12:00am January 10, 2025 3:49pm gabapentin 300 mg oral capsule (3 sources) Anti-epileptic Agent Start: 06-14-2024 End: 01-09-2025 take 1 capsule by mouth at bedtime Gabapentin 300 mg capsule Discontinued 300 mg PO AT BEDTIME June 14, 2024 12:00am January 09, 2025 8:49am 12 hr guaiFENesin 1200 mg extended release oral tablet (3 sources) Start: 06-14-2024 End: 01-06-2025 take 1 tablet by mouth twice daily, then take 1 tablet by mouth every twelve hours Guaifenesin (Mucinex) 1,200 mg tablet extended release 12hr Discontinued 1200 mg PO TWICE A DAY 20 0 June 14, 2024 12:00am January 06, 2025 9:03am meloxicam 7.5 mg oral tablet (3 sources) Nonsteroidal Anti-inflammatory Drug Start: 06-14-2024 End: 01-09-2025 take 1 tablet by mouth once daily Meloxicam 7.5 mg tablet Discontinued 7.5 mg PO DAILY June 14, 2024 12:00am January 09, 2025 8:49am nortriptyline 50 mg oral capsule (3 sources) Tricyclic Antidepressant Start: 06-14-2024 End: 01-09-2025 take 1 capsule by mouth at bedtime Nortriptyline 50 mg capsule Discontinued 50 mg PO AT BEDTIME June 14, 2024 12:00am January 09, 2025 8:49am predniSONE 20 mg oral tablet (3 sources) Start: 06-14-2024 End: 01-06-2025 take 3 tablets by mouth once daily Prednisone 20 mg tablet Discontinued 60 mg PO DAILY 15 0 June 14, 2024 12:00am January 06, 2025 9:03am Problems Active Problems Problem Classification Problem Date Documented Da te Episodic/Chronic Chronic obstructive pulmonary disease and bronchiectasis (3 sources) Acute exacerbation of chronic obstructive airways disease; Translations: [Chronic obstructive pulmonary disease with (acute) exacerbation] 06-22-2024 Chronic Conditions associated with dizziness or vertigo (3 sources) Dizziness; Translations: [Dizziness and giddiness] 06-22-2024 Episodic Disorders of lipid metabolism (3 sources) Hypercholesterolemi a; Translations: [Pure hypercholesterolemi a, unspecified] 06-14-2024 Chronic Fluid and electrolyte disorders (9 sources) Hyponatremia; Translations: [Hypo-osmolality and hyponatremia] 06-14-2024 Episodic Osteoporosis (3 sources) Osteoporosis; Translations: [Age-related osteoporosis without current pathological fracture] 06-14-2024 Chronic Other circulatory disease (3 sources) Orthostatic hypotension; Translations: [Orthostatic hypotension] 06-14-2024 Episodic Other connective tissue disease (1 source) Metatarsalgia, right foot; Translations: [Metatarsalgia, right foot] Onset: 06-01-2025 Episodic Other connective tissue disease (1 source) Other enthesopathy of right foot and ankle; Translations: [Other enthesopathy of right foot and ankle] Onset: 06-01-2025 Episodic Other screening for suspected conditions (not mental disorders or infectious disease) (2 sources) Encounter for screening mammogram for malignant neoplasm of breast; Translations: [Encounter for screening mammogram for malignant neoplasm of breast] Onset: 07-11-2024 Episodic Skin and subcutaneous tissue infections (3 sources) Abscess of submental space ; Translations: [Cutaneous abscess of face] 01-10-2025 Episodic Spondylosis; intervertebral disc disorders; other back problems (1 source) Other cervical disc degeneration, unspecified cervical region; Translations: [Other cervical disc degeneration, unspecified cervical region] Onset: 08-19-2024 Chronic Substance-related disorders (2 sources) Nicotine dependence, cigarettes, uncomplicated; Translations: [Nicotine dependence, cigarettes, uncomplicated] Onset: 07-07-2024 Chronic Past or Other Problems Problem Classification Problem Date Documented Da te Episodic/Chronic Disorders of teeth and jaw (6 sources) Sore gums; Translations: [Other specified disorders of gingiva and edentulous alveolar ridge] Onset: 01-06-2025 01-06-2025 Episodic Other aftercare (1 source) Encounter for change or removal of nonsurgical wound dressing; Translations: [Encounter for change or removal of nonsurgical wound dressing] Onset: 01-19-2025 Episodic Other bone disease and musculoskeletal deformities (1 source) Other specified disorders of bone density and structure, unspecified site; Translations: [Other specified disorders of bone density and structure, unspecified site] Onset: 02-07-2025 Episodic Other non-traumatic joint disorders (1 source) Pain in left shoulder; Translations: [Pain in left shoulder] Onset: 07-31-2024 Episodic Spondylosis; intervertebral disc disorders; other back problems (1 source) Dorsalgia, unspecified; Translations: [Dorsalgia, unspecified] Onset: 06-22-2024 Episodic Results Test Name Value Interpretation Reference Range Facility Gram Stainon 01-11-2025 INOCENCIO JUAREZ Gram Stain 3+ Gram negative rods 1+ Gram positive cocci 3+ White Blood Cells No Epithelial cells Normal [facility] Comment on above: Performed By: #### M 100.3000, M100.1999 ####[facility] [id number] [place], [place], [id number] Wound Cultureon 01-11-2025 INOCENCIO JUAREZ No growth aerobically. Normal [facility] Comment on above: Performed By: #### M 100.3000, M100.2000 ####[facility] [id number] [place], [place], [id number] Emergency Department Summary on 01-10-2025 Emergency Department Summary [facility] Medical Records Department [address] [place] [address] Emergency Department Summary 01/10/25 MR#: [id number] Acct: [id number] Name: THURSDAYGABBY Corinne Rep #: [id number] : 1955 69 From: Chaka Montenegro MD PCP: Dr. Deisy Arteaga MD Status:REG ER Location: ED HPI History of Present Illness Chief Complaint: Wound Informant: patient Narrative Narrative: 69-year-old female presenting with a tender swollen area on her face below her chin, started a week ago as a small spot on the skin nothing intraorally, it has been growing and spreading caudally. She states she has had several visits to urgent care, she has not had any incision and drainage, they just put her on antibiotics. She states this morning it started to drain and it is extremely painful. She denies any fevers, chills, systemic symptoms. She states her COPD has been stable and not giving her any acute issues. She is not on home oxygen. She denies any problems breathing or swallowing with regards to the past week associated with this tender swollen area. [facility] Medical History Cervical radiculopathy Chronic pain Hypercholesterolemia Osteoporosis COPD (chronic obstructive pulmonary disease) Home Medications ???Medication ???Instructions ???Recorded ???Last Taken ???Type albuterol sulfate 90 mcg/actuation 2 puff inhalation 4X/DAY PRN 06/14/24 History aerosol inhaler shortness of breath or wheezing atorvastatin 20 mg tablet 20 mg PO DAILY 06/14/24 06/14/24 H istory denosumab 60 mg/mL subcutaneous 60 mg subcut [id number] 01/09/25 Unk nown History syringe (Prolia) hydrocodone-acetamino phen 5-325mg 1 tab PO Q6H PRN PRN Pain 3 days 01/10/25 Unknown Rx 5mg-325mg #10 TABLETS sulfamethoxazole 800 1 tab PO BID #20 TABLETS 01/10/25 Unknown Rx mg-trimethoprim 160 mg tablet Allergy/AdvReac Type Severity Reaction Status Date / Time No Known Allergies Allergy Verified 01/09/25 08:48 Family History no significant family his Surgical History History of dental surgery Social History Smoking Status: Heavy Smoker (>10/day) alcohol intake: never substance use type: does not use ROS ROS ED Constitutional Constitutional ED: Denies chills or fever(s) Eyes Eyes: Denies change in vision or diplopia ENT ENT ED: Denies rhinorrhea or sore throat Cardiovascular Cardiovascular: Denies chest pain or palpitations Respiratory/Chest Respiratory/Chest: Denies cough or dyspnea Gastrointestinal Gastrointestinal: Denies abdominal pain, diarrhea, nausea or vomiting Genitourinary Genitourinary ED: Denies dysuria or hematuria Musculoskeletal Musculoskeletal: Reports neck pain; Denies back pain Integumentary Reports abscess; Denies rash Neurologic Neurologic: Denies headache(s), paresthesias or weakness Psychiatric Psychiatric: Denies anxiety or suicidal thoughts EXAM Physical Exam Const Vital Signs: 01/10/25 11:02 01/10/25 11:04 01/10/25 12:04 Temperature 97.3 F L 97.3 F L 97.3 F L Temperature Source Temporal Oral Oral Pulse Rate 97 94 91 Pulse Rate [1 (Initial Baseline)] Pulse Rate [2] Pulse Rate [3] Pulse Rate [4] Pulse Rate [5] Respiratory Rate 20 H 19 H 19 H Respiratory Rate [1 (Initial Baseline)] Respiratory Rate [2] Respiratory Rate [3] Respiratory Rate [4] Respiratory Rate [5] Blood Pressure 108/63 108/63 140/81 H Blood Pressure [1 (Initial Baseline)] Blood Pressure [2] Blood Pressure [3] Blood Pressure [4] Blood Pressure [5] Blood Pressure Mean 78 78 100 Baseline BP Pulse Ox 100 100 93 Oxygen Delivery Method Room Air Room Air Room Air Oxygen Delivery Method [1 (Initial Baseline)] Oxygen Delivery Method [2] Oxygen Delivery Method [3] Oxygen Delivery Method [4] Oxygen Delivery Method [5] Oxygen Flow Rate (L/min) Oxygen Flow Rate (L/min) [1 (Initial Baseline)] Oxygen Flow Rate (L/min) [2] Oxygen Flow Rate (L/min) [3] Oxygen Flow Rate (L/min) [4] Oxygen Flow Rate (L/min) [5] Fraction of Inspired Oxygen (FIO2) [1 (Initial Baseline)] Fraction of Inspired Oxygen (FIO2) [2] EtCo2 (Normal 35-45 , high quality CPR 10-20 ROSC>/=40mmHg EtCo2 (Normal 35-45 , high quality CPR 10-20 ROSC>/=40mmHg [1 (Initial Baseline)] EtCo2 (Normal 35-45 , high quality CPR 10-20 ROSC>/=40mmHg [2] EtCo2 (Normal 35-45 , high quality CPR 10-20 ROSC>/=40mmHg [3] EtCo2 (Normal 35-45 , high quality CPR 10-20 ROSC>/=40mmHg [4] EtCo2 (Normal 35-45 , high quality CPR 10-20 ROSC>/=40mmHg [5] 01/10/25 13:00 01/10/25 13:00 01/10/25 14:00 Temperature 97.3 F L 97.3 F L (more content not included)... Normal [facility] Gram stainOrdered By: Laci Montenegro on 01-10-2025 Microscopic observation Gram stain Nom (Unsp spec) [facility] Routine wound cultureOrdered By: Chaka Montenegro on 01-10-2025 Wound Culture No growth aerobically. [facility] Urgent Care Visit Reporton 0 01-09-2025 Urgent Care Visit Report [facility] [address], [address] [place] [address] OFFICE VISIT Date of Service: 01/09/25 MR#: [id number] Acct: [id number] Name: GABBY MORALES Rep #: [id number] : 1955 Provider: KRISTI Weiss Age/Sex: 69/F Location: [facility] Status: Signed Intake Vital Signs 01/06/25 07:51 01/09/25 08:50 Height 5 ft 4 in Weight: 134 lb 6 oz BMI 23.1 BP 118/60 120/68 Blood Pressure Location Lt brachial Position Sitting Respiration 15 Pulse 104 H 105 H Pulse Source NIBP Temp 97.7 F L 98.0 F Temp Source Oral Oral Pulse Oximetry (%) 97 99 Oxygen Delivery Method room air room air Intake Visit Reasons: THROAT PAIN Chief Complaint: gum redness/pain/swelling Accompanied by: Self Allergies No Known Allergies Allergy (Verified 01/09/25 08:48) Medications ???Medication ???Instructions ???Recorded ???Confirmed ???Type albuterol sulfate 90 mcg/actuation 2 puff inhalation 4X/DAY PRN 01/09/25 History aerosol inhaler shortness of breath or wheezing atorvastatin 20 mg tablet 20 mg PO DAILY 06/14/24 01/09/25 H istory amoxicillin 875 mg-potassium 1 tab PO BID #20 tabs 01/09/2508/26 Rx clavulanate 125 mg tablet denosumab 60 mg/mL subcutaneous 60 mg subcut [id number] 01/09/2508/26 History syringe (Prolia) Have you fallen in the past year?: No Nurse's Note: Patient chin is swollen and red and warm. Patient states it itches and hurts to swallow. Patient isn't able to wear her dentures. [facility] Medical History (Updated 01/06/25 @ 08:18 by Tru Guidry DRY PAN FEEDER, DRY PAN FEEDER-C) Cervical radiculopathy Chronic pain Hypercholesterolemia Osteoporosis COPD (chronic obstructive pulmonary disease) Surgical History (Updated 01/06/25 @ 08:10 by Sally Mtz) History of dental surgery Family History no significant family his Social History (Updated 01/06/25 @ 08:11 by Sally Mtz) Smoking Status: Heavy Smoker (>10/day) alcohol intake: never substance use type: does not use HPI HPI Chief Complaint: gum redness/pain/swelling Details: GABBY MORALES, is a 69 F who presents to the office today for follow-up after initial evaluation [facility] on 01/[facility]/2025 with persistent concerns regarding gum redness, pain, and submandibular swelling for the last 6 days. She denies fever or drainage. She states years ago she had all of her teeth removed and she is using dentures. She does appreciate painful swallowing though no difficulty swallowing/drooling. No complaints of chest pressure/shortness of breath/dyspnea on exertion. She still cannot currently use her dentures on account of such pain and swelling, even after 72-hours of using amoxicillin as prescribed on 01/06/2025. ROS Const Constitutional: As above Exam Const General: cooperative, healthy appearing, comfortable and no acute distress Orientation: alert, awake and oriented x3 HENMT Head: normal to inspection and normocephalic though some mandibular erythema, warmth, swelling, very tender to palpation Ears: hearing grossly normal bilaterally, external ears normal Nose: external nose normal, nares normal and no nasal discharge Face and sinus: normal facial exam and sinuses nontender Mouth: oral mucosae normal, lip normal, tongue normal, oropharynx normal, moist mucous membranes and other (no teeth) Throat: posterior oropharynx normal, tonsils normal, uvula midline and no postnasal drainage Eyes General: appearance normal, both eyes and all related structures Neck Neck: normal visual inspection, no lymphadenopathy, tender and other (see head exam above) Lymphatic: no lymphadenopathy noted Chest Chest palpation inspection: normal inspection of the chest Resp Effort Inspection: normal respiratory effort, able to speak in complete sentences, symmetric chest movement, no cough and no stridor Cardio Rate: regular rate GI Inspection: normal to inspection Skin General: no rashes or lesions noted Neuro Speech: speech normal Extrem General: normal to inspection and capillary refill normal Diagnoses Pain in gums K06.8 Assessment and Plan Assessment and Plan (1) Pain in gums: Status: Acute Plan: Discontinue amoxicillin as prescribed on 01/06/2025. Augmentin as prescribed today. Supportive measures as instructed today. Keep dental appointment for later this week as previously arranged, or report to ED sooner should symptoms only worsen or any other concerns develop. Patient states acknowledging understanding all the above. This note was generated with [employer] dictation software. It may contain incorrect words, spelling, and punctuation that were not noted in checking the note before signing. Coding Level of Care Code Off vis,est,level 3 Assessment and Plan Assessme (more content not included)... Normal [facility] Urgent Care Visit Reporton 0 01-06-2025 Urgent Care Visit Report [facility] [address], [address] [place] [address] OFFICE VISIT Date of Service: 01/06/25 MR#: [id number] Acct: [id number] Name: THURSDAYGABBY Rep #: [id number] : 1955 Provider: ZHANG lackey Age/Sex: 69/F Location: [facility] Status: Signed Intake Vital Signs 08/04/24 09:22 01/06/25 07:51 01/06/25 08:25 Height 5 ft 4 in 5 ft 4 in Weight: 134 lb 6 oz BMI 23.1 BP 118/60 Blood Pressure Location Lt brachial Position Sitting Respiration 15 Pulse 104 H 95 Pulse Source NIBP Monitor Temp 97.7 F L Temp Source Oral Pulse Oximetry (%) 97 Oxygen Delivery Method room air Intake Visit Reasons: CONCERN FOR INFECTED GUMS Chief Complaint: gum redness/pain/swelling [employer] Policy Specialist Required: No Is patient in pain?: Yes Allergies No Known Allergies Allergy (Verified 01/06/25 08:10) Is last menstrual period known: No Post menopausal: Yes Patient : No Have you fallen in the past year?: No Nurse's Note: gum redness/pain/swelling x 3 days. denies fever, drainage. had all teeth removed years ago, uses dentures but cannot currently d/t pain and swelling PFSH Medical History (Updated 01/06/25 @ 08:18 by Tru Guidry DRY PAN FEEDER, DRY PAN FEEDER-C) Cervical radiculopathy Chronic pain Hypercholesterolemia Osteoporosis COPD (chronic obstructive pulmonary disease) Surgical History (Updated 01/06/25 @ 08:10 by Sally Mtz) History of dental surgery Family History no significant family his Social History (Updated 01/06/25 @ 08:11 by Sally Mtz) Smoking Status: Heavy Smoker (>10/day) alcohol intake: never substance use type: does not use HPI HPI Chief Complaint: gum redness/pain/swelling Details: GABBY THURSDAY, is a 69 F who presents to the office today for concerns regarding gum redness, pain, and swelling for the last 3 days. She denies fever or drainage. She states years ago she had all of her teeth removed and she is using dentures. She cannot currently use her dentures on account of such pain and swelling. ROS Const Constitutional: No body ache, chills, fatigue, fever(s), headache(s) or change in appetite Eyes Eyes: No blurry vision, change in vision, double vision, irritation, discharge, vision loss, dry eyes, bulging eyes, floaters, visual disturbances, eye pain, Light sensitivity, spots in vision, t unnel vision or other ENT ENT: Positive for other (gum pain, redness, swelling); No ear or mastoid pain, ear discharge, ear pressure, tinnitus, dizziness/vertigo, nosebleed/epistaxis, nasal congestion, nose pain, sinus pressure, sinus pain, nasal discharge, post nasal drip, headache(s), facial pain, dental pain, difficulty swallowing, bad breath, hoarseness, lip swelling, mouth lesions, mouth pain, neck pain, sore throat, tongue swelling or throat swelling Resp Respiratory: No cough, change in phlegm color, chest congestion, hemoptysis, pain on inspiration, shortness of breath, pain with cough, stridor or wheezing Cardio Cardiology: No chest pain at rest, chest pain with exertion, shortness of breath, dyspnea on exertion or lightheadedness Gastro GI: No abdominal pain, change in bowel habits or difficulty swallowing Genitourinary-Female: No burning urination or urinary frequency Musc Musculoskeletal: No joint pain or neck pain Skin Skin: No rash Neuro Neurology: No headache(s) or visual disturbances Psych Psychiatric: No change in appetite Endo Endocrine: Positive for other (gum pain, redness, swelling); No fatigue Aller/Imm Allergy/Immunologic: No lip swelling, throat swelling, tongue swelling or wheezing Exam Const General: cooperative, healthy appearing, comfortable and no acute distress Orientation: alert, awake and oriented x3 HENMT Head: normal to inspection and normocephalic Ears: hearing grossly normal bilaterally, external ears normal and TM's normal bilaterally Nose: external nose normal, nares normal and no nasal discharge Face and sinus: normal facial exam and sinuses nontender Mouth: oral mucosae normal, lip normal, tongue normal, oropharynx normal, moist mucous membranes and other (no teeth) Throat: posterior oropharynx normal, tonsils normal, uvula midline and no postnasal drainage Eyes General: appearance normal, both eyes and all related structures Neck Neck: normal visual inspection, no lymphadenopathy, tender and other (right neck area sore to tough. Redness noted to center of chin . ) Carotids: normal carotid upstroke Lymphatic: no lymphadenopathy noted Chest Chest palpation inspection: normal inspection of the chest Resp Effort Inspection: normal respiratory effort, able to speak in complete sentences, symmetric chest movement, no cough and no stridor Auscultation: Bilateral: Clear to Auscultation Cardio Rate: reg (more content not included)... Normal [facility] Inital Evaluation (1) - PTon 11-21-2024 Inital Evaluation (1) - PT [facility] Physical Therapy [address] [place] [address] / REHABILITATION SERVICES INITIAL EVALUATION MR#: [id number] Acct: [id number] Name: THURSDAYGABBY Rep #: [id number] : 1955 69 From: Rosangela Ham PT, Cert. MDT Referring Dr.: Kash Sanford DPM Status: RE G R Insurance: [facility] 09/02/18 SELF PAY INSURANCE Patient's Visit Information Visit Information Visit Information: GABBY Sun THURSDAY is a 69 year old F referred to Physical Therapy by Dr. Kash Sanford DPM with a diagnosis of R FOOT PAIN, METATARSALGIA AND CAPSULITIS. Date of Evaluation: 11/21/24 Physical Therapist: Rosangela Ham PT, Cert MDT Visit Plan Frequency: 2-3x /Week Duration: 4-6 Weeks Plan: R FOOT MODALITIES NEEDED TO DESENSATIZE R GREAT TOE REGION INCLUDING, CONTRAST BATH, UNDERWATER ULTRASOUND, LIGHT TOUCH, FLUIDOTHERAPY, PARAFFIIN, OR STM TOLERATED. GENTLE R FOOT ROM, STRETCHING AND STRENGTHEING TO HELP MEET SET GOALS. GAIT AND BALANCE TRAINING. ASSISTIVE DEVICE INSTRUCTION NEEDED. Subjective Subjective: Work/Leisure: RETIRED Present symptoms: PAIN BASICALLY JUST AT THE BIG TOE AND INTO THE FOOT ON THAT SIDE NOW. SOMETIMES BUT RARELY PAIN INTO THE NEXT COUPLE OF TOES. 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 Symptoms at onset: SUDDEN SHARP PAIN IN FOOT NEAR TOES WHEN STEPPING DURING WALKING Worse: WALKING/WEIGHT BEARING/STEPPING ON IT/CLIMBING STAIRS. EVEN SETTING FOOT DOWN IN SITTING. Better: BEING OFF OF FOOT/ NON- WEIGHT BEARING - NO WEIGHT ON IT AT ALL. NEW SHOES. HAVING SHOES ON HELPS TO A POINT. SHOE INSERTS BOUGHT FROM COMMUNITY RELATIONS COORDINATOR BUT NOT CUSTOM MADE ALSO HELP TO A POINT. Disturbed sleep: NO Previous history/Previous treatment: UNREMARKABLE Treatment this episode: MULTIPLE INJECTIONS ONE TIME BY DR. ZAPIEN - internal audit manager - TOOK AWAY MOST OF THE PAIN IN THE TOES EXCEPT THE BIG TOE. ORAL ANTI-INFLAMMATORY - STATES SHE IS STILL TAKING IT BUT NOT SURE IT IS HAVING AN EFFECT. Gait: NOT USING ANY AD'S. CAN WALK NORMAL AT TIMES AND THEN ALL OF A SUDDEN CAN'T. SOMETIMES CAN WALK 10 TO 15 MIN NORMAL AND THEN CAN'T. Imaging: PATIENT REPORTS HAVING X-RAYS AT THE PODIATRISTS OFFICE BUT SHE IS UNAWARE OF THE RESULTS. DENIES HAVING MRI. PMH/Recent major surgery: Cervical radiculopathy Chronic pain Hypercholesterolemia Osteoporosis COPD (chronic obstructive pulmonary disease) Objective Objective: THIS PATIENT AMBULATES INDEP'LY INTO PT WITHOUT ANY ASSITIVE DEVICES LIMPING ON HER R LE WITH A STEP TO PATTERN AND REACHING FOR EXTERNAL SUPPORTS. SHE IS IN REGULAR TENNIS SHOES WITH INSERTS AND IS AVOIDING BEARING WEIGHT ON HER R FOREFOOT ESPECIALLY MEDIALLY AND HAS NO TOE OFF PHASE OF GAIT. SHE EXHIBITS PAIN BEHAVIOR WITH SETTING HER R FOOT DOWN IN SITTING, DONING AND DOFFING HER R SHOE AND WITH VERY LIGHT TOUCH/PALPATION OF HER R GREAT TOE AND R FIRST METATARSAL. SENSATION: R THIGH, LEG AND FOOT LIGHT TOUCH SENSATION IS INTACT AND WNL EXCEPT R GREAT TOE AND FIRST METATARSAL. ROM: R HIP, KNEE, AND ANKLE AROM IS WFL WITHOUT C/O PAIN. SHE CAN EVEN ACTIVELY MOVE ALL OF HER TOES INCLUEDING HER R GREAT TOE (50% ROM) THROUGH FUNCTIONAL ROM WITH ONLY C/O MILD R GREAT TOE PAIN. HER MAIN PAIN IS WHEN PRESSURE IS APPLIED VS OPEN CHAIN MVMT. STRENGTH: R HIP 4/5 (DENIES PAIN), R KNEE 5/5 (DENIES PAIN), R ANKLE DORSI FLEX 4/5 (C/O MILD GREAT TOE PAIN), R ANKLE PLANTAR FLEXION (PATIENT UNABLE TO TOLERATE TESTING). OTHER: PATIENT IS UNABLE TO TOLERATE BEING TOUCHED IN THE R GREAT TOE OR FIRST METATARSAL REGION AT ALL DURING EXAM TODAY. SHE REPORTS SOMETIMES SHE CAN AND SOMETIMES SHE CAN'T. THIS PT INSTRUCTED HER IN PROPER USE AND FITTING OF STRAIGHT CANE TODAY FOR USE WHEN UNALBE TO BEAR WEIGHT ON THIS AREA AND DISCUSSED POC. PATIENT AGREEABLE. PATIENT RETURN DEMONSTRATED GOOD RESPONSE AND SEQUENCING WITH CANE AFTER INSTRUCTION AND LEFT WITH LESS C/O PAIN AND BETTER GAIT THAN ARRIVAL. Sitting/Standing Posture: Lordosis: Lateral shift: Relevant shift: Active Correction of posture: Other Observations: Sensory deficit: ROM deficit: Motor deficit: Reflexes: Dural Signs: Lumbar mvmt loss: flex - ext - R SG - L SG - Core strength: Palpation: Balance/Special Test Scores Lower Extremity Functional Score: 39 Goals Goal 1:: DECREASE C/O R FOOT PAIN BY AT LEAST 50% TO EASE ADL'S Goal Time Frame: 4-6 Weeks Goal 2:: NORMALIZE GAIT ON LEVEL SURFACES WITH LEAST ASSISTIVE DEVICE Goal Time Frame: 4-6 Weeks Goa (more content not included)... Normal [facility] Shoulder min 2 Viewson 07-08 Shoulder min 2 Views [facility] Imaging Services [address] [place] [address] Shoulder min 2 Views MR#: [id number] Acct: [id number] Name: GABBY MORALES Rep #: [id number] : 1955 F 69 From: Anthony Castillo MD PCP: Dr. Deisy Arteaga MD Status: REG CLI Study: Shoulder min 2 Views Date of Exam: 07/08/24 Exam# [id number] Ordering Dr: Deisy Arteaga [id number] STUDY: X-RAY - LEFT SHOULDER REASON FOR EXAM: Female, 69 years old. Pain. TECHNIQUE: 5 views of the left shoulder. COMPARISON: None. FINDINGS: Normal glenohumeral articulation. There is mild acromioclavicular arthrosis. Normal acromion. Normal humeral head and visualized proximal humerus. The soft tissue structures are unremarkable. There is no demonstrated fracture. Normal visualized pulmonary apex. RAD/Shoulder min 2 Views IMPRESSION: Mild acromioclavicular arthrosis. Electronically Signed: Anthony Castillo MD at 15:49 EDT , CC: Dr. Deisy Arteaga MD Barrel Stave Inspector: Signed Normal [facility] PT D/C Summary (1)on 024 PT D/C Summary (1) [facility] Physical Therapy [facility] [address] [place] [address] / REHABILITATION SERVICES DISCHARGE SUMMARY MR#: [id number] Acct: [id number] Name: THURSDAYGABBY Rep #: [id number] : 1955 69 From: Souleymaen Chávez PT, ATC Referring Dr.: Dr. Deisy Arteaga MD Status: REG RCR Insurance: [facility] 09/02/18 SELF PAY INSURANCE Discharge Summary D/C summary: It has been my pleasure to treat GABBY Sun THURSDAY referred by Dr. Deisy Arteaga MD, with the diagnosis of Cervical Pain for a total of 7 visit(s). Discharge Date: Please see the following information for a summary of their discharge status. Subjective Subjective: Pt reports her L shoulder pain ranges from 7-9/10. No improvement at this time Pain Bilateral Neck: Pain Intensity (Out of 10): 0 shoulder: Pain Intensity (Out of 10): 7 Overall Improvement % Improvement: 0 Objective Objective/Function: L shoulder pain ranges from 7-9/10, No c/s pain today Pt is I with HEP Pt has experienced no BURKETT's for the past week Pt has full AROM of c/s with exception to R SB which is significantly limited Pt has progressed well with neck progressions, but L shoulder pain is severe Goals Goal 1:: Patient will be I with HEP and progression Goal Progress: Goal Met Goal 2:: Patient will maintain proper posture t/o tx session to demo increased scap s/s Goal Progress: Progressing Goal 3:: Patient will report no BURKETT for 1 week Goal Progress: Goal Met Goal 4:: Patient will demo full AROM of the cervical spine Goal Progress: Progressing Goal 5:: Patient will report 80% improvement Goal Progress: Not Progressing Plan Plan: Recommend discontinuation at this time secondary to severity of L shoulder pain, and RTD for further assessment D/C Information d/c sentence: If there are questions or concerns regarding this patient's physical therapy, please feel free to call me at [phone]. Thank you for the referral of this patient. Sincerely, Souleymane Chávez, PT, ATC Balance/Gait/Function al tests Balance/Special Test Scores Oswestry Low Back Score: 24 Oswestry Neck Score: 28 Improvement % Improvement: 0 07/06/24 0858 CC: Dr. Deisy Arteaga MD [facility] Signed Normal [facility] Dexa Bone Density Studyon Dexa Bone Density Study [facility] Imaging Services [address] [place] [address] Dexa Bone Density Study MR#: [id number] Acct: [id number] Name: THURSDAYGABBY Rep #: [id number] : 1955 F 69 From: Elliot friedman MD PCP: Dr. Deisy Arteaga MD Status: [facility] Study: Dexa Bone Density Study Date of Exam: 06/22/24 Exam# [id number] Ordering Dr: Deisy Arteaga [id number] STUDY: DUAL ENERGY X-RAY ABSORPTIOMETRY / DXA REASON FOR EXAM: Female, 69 years old. [id number] TECHNIQUE: Bone Mineral Density (BMD) measurements of lumbar spine and bilateral hips were obtained. COMPARISON: Comparison is made with prior study June 12, 2021. FINDINGS: Lumbar Spine (L1-L4): g/cm2 (0.841) / T-score (-1.8) / Z-score (0.2) Findings are suggestive of osteopenia with a moderate fracture risk. Left Femur Total: g/cm2 (0.715) / T-score (-1.9) / Z-score (-0.5) Left Femoral Neck: g/cm2 (0.752) / T-score (-0.9) / Z-score (0.8) Right Femur Total: g/cm2 (0.648) / T-score (-2.4) / Z-score (-1.0) Right Femoral Neck: g/cm2 (0.707) / T-score (-1.3) / Z-score (0.4) The T-Scores on the most recent prior examination were: Lumbar Spine (L1-L4): There has been improvement of bone density since the previous examination. Left Femur Total: which represents a worsening of 7.9%. Right Femur Total: which represents an improvement of 0.8%. BD/Dexa Bone Density Study IMPRESSION: The patient is considered osteopenic as outlined below according to World [place] Organization (WHO) criteria with a high fracture risk. There has been improvement of bone density since the previous examination. Reference Information: The T-score is the number of standard deviations above or below the standard which is normal for young adults at their peak bone mineral density. The World Health Organization (WHO) interprets the T-scores as follows: Above -1 Normal bone density Between -1 and -2.5 Osteopenia Equal to / or below -2.5 Osteoporosis As a practical clinical guideline, osteopenia may be graded as follows: Mild -1 through -1.5 Moderate -1.6 through -2.0 Severe -2.1 through -2.4 The Z-score is the number of standard deviations above or below age-matched controls. A Z-score of less than -1.5 would be considered abnormal. References: 1. NIH Osteoporosis and Related Bone Diseases www osteo.org 2. International Society for Clinical Densitometry www iscd.org 3. National Osteoporosis Foundation www nof.org Electronically Signed: Elliot Gómez MD at 8:03 EDT , CC: Dr. Deisy Arteaga MD Barrel Stave Inspector: Signed Normal [facility] SCRN MAMM (CAD)W/EHSAN BILATo n 06-22-2024 SCRN MAMM (CAD)W/EHSAN BILAT [facility] Imaging Services [address] [place] [address] SCRN MAMM (CAD)W/EHSAN BILAT MR#: [id number] Acct: [id number] Name: GABBY MORALES Rep #: [id number] : 1955 F 69 From: Elliot friedman MD PCP: Dr. Deisy Arteaag MD Status: REG CLI Study: SCRN MAMM (CAD)W/EHSAN BILAT Date of Exam: 06/03 11/25 Exam# [id number] Ordering Dr: Deisy Arteaga [id number] MAMMOGRAPHY - BILATERAL SCREENING REASON FOR EXAM: Female, 69 years old. Routine annual screening examination. PERTINENT HISTORY: Non-contributory. TECHNIQUE: Digital bilateral breast ehsan (3D mammographic acquisition) in the CC and MLO projections. 2-D mediolateral oblique (MLO) and craniocaudad (CC) views of both breasts were obtained. CAD: Full Field Digital Mammography with Computer Added Detection was performed. COMPARISON: Comparison is made with prior study June 19, 2023 and June 13, 2022. FINDINGS: Breast Composition: There are scattered areas of fibroglandular density. There are no dominant masses or suspicious calcifications. Stable asymmetry of breast tissue where more breast tissue is seen in the right breast as compared to the left side. No other significant abnormalities are identified. There has been no significant change since the prior study. BI/SCRN MAMM (CAD)W/EHSAN BILAT IMPRESSION: Stable bilateral screening mammogram. Yearly follow-up mammogram recommended. (A) ASSESSMENT CATEGORY: BIRADS Category 2: Benign. A letter regarding these results will be sent to the patient by the facility within 30 days. Approximately 10% of breast cancers are not detected by mammography. A normal mammogram should not delay biopsy of a clinically suspicious abnormality. [id number] Electronically Signed: Elliot Gómez MD at 10:58 EDT Reading Location ID and State: [facility] / [place] , Service support , CC: Dr. Deisy Arteaga MD Barrel Stave Inspector: Signed Normal [facility] Low Dose CT Lung Screeningon 06-16-[address] Lung Screening [facility] Imaging Services [address] [place] [address] Lung Screening MR#: [id number] Acct: [id number] Name: THURSDAYGABBY Rep #: [id number] : 1955 F 69 From: Elliot friedman MD PCP: Dr. Deisy Arteaga MD Status: [facility] Study: Low Dose CT Lung Screening Date of Exam: 06/16 Exam# [id number] Ordering Dr: Deisy Arteaga [id number] STUDY: LOW DOSE CT LUNG CANCER SCREENING REASON FOR EXAM: Female, 69 years old. Patient smoked 1 pack per day for 51 years. COPD. RADIATION DOSAGE (If Supplied By Facility): CTDIvol = ( 2.01 ) mGy, DLP = ( 74.49 ) mGycm TECHNIQUE: No contrast was administered. Low dose technique was utilized (average mAS-38 and kVp 120). 1.25 mm axial source images with a slice interval of 1.25-mm were reconstructed in lung windows. 2.5 mm axial source images with a slice interval of 2.5-mm were reconstructed in lung windows. 5.0 mm axial source images with a slice interval of 5.0-mm were reconstructed in soft tissue windows. COMPARISON: Comparison is made with prior study June 15, 2023. Emphysema: Hyperinflation. Emphysematous changes more pronounced in the upper lobes with the centrilobular emphysematous changes. Mild scarring in the posterior aspect of the right upper lobe as well as in the medial aspect of both the left and right upper lobes. Scarring with volume loss in the medial aspect of the right middle lobe. Focal bronchiectasis is seen. This has progressed as compared to prior study. Endobronchial lesion: None Aorta: Atherosclerotic plaque formation. CORONARY ARTERIES: Coronary artery calcification is seen. Heart: Unremarkable Pulmonary artery: Unremarkable Mediastinal nodes: Small mediastinal lymph nodes. Other chest and abdominal findings: CT/Low Dose CT Lung Screening IMPRESSION: Lung-RADS category 2 - Continue annual screening with LDCT in 12 months. IMPORTANT NOTES FOR USE: ACR Lung-RADS Version 1.1 Assessment Categories Release Date: 2018 Category: Coded 0-4 bases on nodule(s) with highest degree of suspicion. Negative screen is defined as categories 1 and 2; a positive screen is defined as categories 3 and 4. Category 3 and 4A nodules that are unchanged on interval CT should be coded as category 2, and individuals returned to screening in 12 months. Category 4X: Category 3 or 4 nodules with additional imaging findings that increase the suspicion of lung cancer, such as spiculation, GGN that doubles in size in 1 year, enlarged lymph notes, etc. Category Modifiers: S (significant finding unrelated to lung cancer) Electronically Signed: Elliot Gómez MD at 14:24 EDT , CC: Dr. Deisy Arteaga MD Barrel Stave Inspector: Signed Normal [facility] BNP,B-Type NATRIURETIC PEPTI Ana 06-14-2024 Natriuretic peptide B (Bld) [Mass/Vol] 18.9 pg/mL Normal 0-100 [facility] Comment on above: Performed By: #### L 503.6620 ####[facility] [address] [place], [address] CBC W/Diff, Automatedon 08-11 04-2023 Absolute Lymph 1.43 X10 3/uL Normal 0.83-4.51 [facility] Comment on above: Performed By: #### L 100.0100, L500.4050, L503.6005 #### [facility] Laboratory [address] [place], [address] Absolute Neut 7.1 X10 3/uL Normal 2.0-7.7 [facility] Comment on above: Performed By: #### L 100.0100, L500.4050, L503.6005 #### [facility] Laboratory [address] [place], [address] Basophils/100 WBC (Bld) 0.9 % Normal 0-[address] [facility] Comment on above: Performed By: #### L 100.0100, L500.4050, L503.6005 #### [facility] Laboratory [address] [place], [address] Eosinophils/100 WBC (Bld) 0.7 % Normal 0-5 [facility] Comment on above: Performed By: #### L 100.0100, L500.4050, L503.6005 #### [facility] Laboratory [address] [place], [address] Erythrocyte distribution width (RBC) [Ratio] 13.2 % Normal 11.6-14.6 [facility] Comment on above: Performed By: #### L 100.0100, L500.4050, L503.6005 #### [facility] Laboratory [address] [place], [address] Hematocrit (Bld) [Volume fraction] 49.0 % High 37-47 [facility] Comment on above: Performed By: #### L 100.0100, L500.4050, L503.6005 #### [facility] Laboratory [address] [place], [address] Hemoglobin (Bld) [Mass/Vol] 16.6 g/dL High 12.0-15.0 [facility] Comment on above: Performed By: #### L 100.0100, L500.4050, L503.6005 #### [facility] Laboratory [address] [place], [address] IG% 0.800 Normal 0.0-0.9 [facility] Comment on above: Result Comment: IG% - Immature Granulocytes (promyelocytes, myelocytes and metamyelocytes) > 1% indicates that a LEFT SHIFT is Present. Performed By: #### L 100.0100, L500.4050, L503.6005 #### [facility] Laboratory [address] [place], [address] Lymphocytes/100 WBC (Bld) 14.9 % Low 19-41 [facility] Comment on above: Performed By: #### L 100.0100, L500.4050, L503.6005 #### [facility] Laboratory [address] [place], [address] MCH (RBC) [Entitic mass] 29.0 pg Normal 27.0-32.0 [facility] Comment on above: Performed By: #### L 100.0100, L500.4050, L503.6005 #### [facility] Laboratory [address] [place], [address] MCHC (RBC) [Mass/Vol] 33.9 g/dL Normal 32-36 [facility] Comment on above: Performed By: #### L 100.0100, L500.4050, L503.6005 #### [facility] Laboratory [address] [place], [address] MCV (RBC) [Entitic vol] 85.5 fL Normal 81-[address] [facility] Comment on above: Performed By: #### L 100.0100, L500.4050, L503.6005 #### [facility] Laboratory [address] [place], [address] Monocytes/100 WBC (Bld) 8.5 % Normal 0-[address] [facility] Comment on above: Performed By: #### L 100.0100, L500.4050, L503.6005 #### [facility] Laboratory [address] [place], [address] Neutrophils/100 WBC (Bld) 74.2 % High 47-70 [facility] Comment on above: Performed By: #### L 100.0100, L500.4050, L503.6005 #### [facility] Laboratory [address] [place], [address] Nucleated RBC (Bld) [#/Vol] 0 10*3/uL Normal 0-5 [facility] Comment on above: Performed By: #### L 100.0100, L500.4050, L503.6005 #### [facility] Laboratory [address] [place], [address] Platelet mean volume (Bld) [Entitic vol] 9.7 fL Normal 6.2-12.0 [facility] Comment on above: Performed By: #### L 100.0100, L500.4050, L503.6005 #### [facility] Laboratory [address] [place], [address] Platelets (Bld) [#/Vol] 372 10*3/uL Normal 150-450 [facility] Comment on above: Performed By: #### L 100.0100, L500.4050, L503.6005 #### [facility] Laboratory [address] [place], [address] RBC (Bld) [#/Vol] 5.73 10*6/uL High 4.2-5.4 [facility] Comment on above: Performed By: #### L 100.0100, L500.4050, L503.6005 #### [facility] Laboratory [address] [place], [address] RDW SD 41.1 fl Normal 35.1-43.9 [facility] Comment on above: Performed By: #### L 100.0100, L500.4050, L503.6005 #### [facility] Laboratory [address] [place], [address] WBC (Bld) [#/Vol] 9.6 10*3/uL Normal 4.4-11.0 [facility] Comment on above: Performed By: #### L 100.0100, L500.4050, L503.6005 #### [facility] Laboratory [address] [place], [address] Chest PA and Lateralon 06-14 Chest PA and Lateral [facility] Imaging Services [address] [place] [address] Chest PA and Lateral MR#: [id number] Acct: [id number] Name: GABBY MORALES Rep #: [id number] : 1955 F 69 From: Elliot friedman MD PCP: Dr. Deisy Arteaga MD Status: [facility] ER Study: Chest PA and Lateral Date of Exam: 06/14/24 Exam# [id number] Ordering Dr: Garry Carrillo DO [id number] STUDY: X-RAY CHEST REASON FOR EXAM: Female, 69 years old. Weakness TECHNIQUE: PA and lateral views of the chest. COMPARISON: Comparison is made with prior study dated May 30, 2024. FINDINGS: EKG electrodes are seen. There is hyperinflation of the lungs consistent with chronic obstructive lung disease (COPD). Stable scarring in the right midlung. There is no demonstrated pleural abnormality. Normal size heart. Normal mediastinum and adeline. There is prominence of the pulmonary hilar arteries without peripheral pulmonary vascular congestion, suggesting pulmonary hypertension. Normal visualized aortic arch and descending thoracic aorta. Normal visualized thoracic spine. Normal visualized ribs, clavicles, and shoulders. There is no demonstrated abnormality of the visualized soft tissue structures of the upper abdomen. RAD/Chest PA and Lateral IMPRESSION: Hyperinflation and stable scarring in the right midlung. Prominence of the central pulmonary arteries. Electronically Signed: Elliot Gómez MD at 15:46 EDT Reading Location ID and State: [facility] / [place] , Service support , CC: Dr. Deisy Arteaga MD; Dr. Garry Carrillo, Barrel Stave Inspector: Signed Normal [facility] Comprehensive Metabolic Prof vton 06-14-2024 Albumin [Mass/Vol] 3.8 g/dL Normal 3.2-5.0 [facility] Comment on above: Performed By: #### L 100.0100, L500.4050, L503.6005 #### [facility] Laboratory [address] [place], [address] Albumin/Globulin [Mass ratio] 0.9 {ratio} Normal 0.9-2.4 [facility] Comment on above: Performed By: #### L 100.0100, L500.4050, L503.6005 #### [facility] Laboratory [address] [place], [address] ALK P 108 U/L Normal 45-117 [facility] Comment on above: Performed By: #### L 100.0100, L500.4050, L503.6005 #### [facility] [address] [place], [address] ALT [Catalytic activity/Vol] 21 U/L Normal 13-56 [facility] Comment on above: Performed By: #### L 100.0100, L500.4050, L503.6005 #### [facility] [address] [place], [address] AST [Catalytic activity/Vol] 17 U/L Normal 15-37 [facility] Comment on above: Performed By: #### L 100.0100, L500.4050, [id number] #### [facility] [address] [place], [address] Bilirubin [Mass/Vol] 0.70 mg/dL Normal 0.20-1.00 [facility] Comment on above: Result Comment: For patients on eltrombopag therapy, use of [facility] TBIL is not recommended. Performed By: #### L 100.0100, L500.4050, L503.6005 #### [facility] [address] [place], [address] BUN/CRE 30.8 RATIO High 10-20 [facility] Comment on above: Performed By: #### L 100.0100, L500.4050, [id number] #### [facility] [address] [place], [address] CA,Total 9.5 mg/dL Normal 8.5-10.1 [facility] Comment on above: Performed By: #### L 100.0100, L500.4050, [id number] #### [facility] [address] [place], [address] Chloride [Moles/Vol] 96 mmol/L Low 98-107 [facility] Comment on above: Performed By: #### L 100.0100, L500.4050, [id number] #### [facility] [address] [place], [address] CO2 [Moles/Vol] 29.0 mmol/L Normal 21.0-32.0 [facility] Comment on above: Performed By: #### L 100.0100, L500.4050, L503.6005 #### [facility] [address] [place], [address] Creatinine [Mass/Vol] 0.65 mg/dL Normal 0.55-1.02 [facility] Comment on above: Result Comment: The validity of the calculated GFR GFRAA in patients over 70 years has not been determined. Clinical correlation is essential. Performed By: #### L 100.0100, L500.4050, L503.6005 #### [facility] [address] [place], [address] ECRCL 58.12 ml/min Normal [facility] Comment on above: Performed By: #### L 100.0100, L500.4050, L503.6005 #### [facility] [address] [place], [address] EST GFR - AA 117 mL/min Normal >60 [facility] Comment on above: Result Comment: Afri can Micronesian GFR Calc Performed By: #### L 100.0100, L500.4050, L503.6005 #### [facility] [address] [place], [address] GAP 8 Normal 5-15 [facility] Comment on above: Performed By: #### L 100.0100, L500.4050, L503.6005 #### [facility] [address] [place], [address] GFR/1.73 sq M.predicted among non-blacks MDRD (S/P/Bld) [Vol rate/Area] 96 mL/min/{1.73_m2} Normal >60 [facility] Comment on above: Result Comment: Non- GFR Calc Performed By: #### L 100.0100, L500.4050, L503.6005 #### [facility] [address] [place], [address] Globulin (S) [Mass/Vol] 4.1 g/dL Normal 2.2-4.2 [facility] Comment on above: Performed By: #### L 100.0100, L500.4050, L503.6005 #### [facility] [address] [place], [address] Glucose [Mass/Vol] 117 mg/dL High 74-106 [facility] Comment on above: Result Comment: Fast ing Glucose result from 100 to 125 mg/dL suggests IMPAIRED HOMEOSTASIS per A.D.A. criteria. Performed By: #### L 100.0100, L500.4050, L503.6005 #### [facility] [address] [place], [address] Potassium [Moles/Vol] 3.2 mmol/L Low 3.5-5.1 [facility] Comment on above: Performed By: #### L 100.0100, L500.4050, L503.6005 #### [facility] [address] [place], [address] Sodium [Moles/Vol] 133 mmol/L Low 136-145 [facility] Comment on above: Performed By: #### L 100.0100, L500.4050, L503.6005 #### [facility] [address] [place], [address] T PROT 7.9 g/dL Normal 6.4-8.2 [facility] Comment on above: Performed By: #### L 100.0100, L500.4050, L503.6005 #### [facility] [address] [place], [address] Urea nitrogen [Mass/Vol] 20 mg/dL High 7-18 [facility] Comment on above: Performed By: #### L 100.0100, L500.4050, L503.6005 #### [facility] [address] [place], [address] Emergency Department Summary on 06-14-2024 Emergency Department Summary [facility] Medical Records Department [address] [place] [address] Emergency Department Summary 06/14/24 MR#: [id number] Acct: [id number] Name: GABBY MORALES Rep #: [id number] : [id number] From: Garry Carrillo DO PCP: Dr. Deisy Arteaga MD Status:DEP ER Location: ED HPI History of Present Illness Chief Complaint: General Illness Informant: patient Onset/Context/Timing Onset: Month(s) (1) Context: Gradual Onset Timing: Continuous Quality: Lightheaded Location: Generalized Worsened by: Nothing Relieved by: Nothing Narrative Narrative: Patient presents with back pain, headache, dizziness, nausea, and fatigue that has been getting worse over the past month. Patient states her dizziness feels like she is lightheaded. Patient states she feels like that if she stood up too quick, she would fall over. Patient states nothing makes her symptoms any better and nothing makes them worse. Patient admits to some nausea and vomiting. Patient denies any hematemesis or coffee-ground emesis. Patient states she has a history of chronic back pain. Patient admits to a recent cough but is unable to produce any sputum. Patient also admits to some decreased sleep and decreased appetite. [facility] Medical History (Updated 06/14/24 @ 19:[address] Garry Carrillo DO) Cervical radiculopathy Chronic pain Hypercholesterolemia Osteoporosis COPD (chronic obstructive pulmonary disease) Home Medications ???Medication ???Instructions ???Recorded ???Last Taken ???Type albuterol sulfate 90 mcg/actuation 2 puff inhalation 4X/DAY PRN 06/14/24 06/14/24 History aerosol inhaler shortness of breath or wheezing alendronate 70 mg tablet 70 mg PO SA 06/14/24 06/11/24 History atorvastatin 20 mg tablet 20 mg PO DAILY 06/14/24 06/14/24 History gabapentin 300 mg capsule 300 mg PO QHS 06/14/24 06/13/24 History guaifenesin 1,200 mg tablet, 1,200 mg PO BID #20 tabs 06/14/24 Unknown Rx extended release 12 hr (Mucinex) meloxicam 7.5 mg tablet 7.5 mg PO DAILY 06/14/24 06/14/24 History nortriptyline 50 mg capsule 50 mg PO QHS 06/14/24 06/13/24 History prednisone 20 mg tablet 60 mg (3 x 20 mg) PO DAILY #15 06/14/24 Unknown Rx TABLETS Allergy/AdvReac Type Severity Reaction Status Date / Time No Known Allergies Allergy Verified 06/14/24 13:27 Family History no significant family his Surgical History no surgical history no surgical history Social History Smoking Status: Current every day smoker tobacco type: cigarettes ROS ROS ED Constitutional Constitutional ED: Denies chills or fever(s) Eyes Eyes: Denies blurry vision or change in vision ENT ENT ED: Denies rhinorrhea or sore throat Cardiovascular Cardiovascular: Denies chest pain or palpitations Respiratory/Chest Respiratory/Chest: Reports cough; Denies dyspnea Gastrointestinal Gastrointestinal: Reports nausea and vomiting Genitourinary Genitourinary ED: Denies dysuria or hematuria Musculoskeletal Musculoskeletal: Reports back pain and neck pain Integumentary Denies abscess or rash Neurologic Neurologic: Reports headache(s) and weakness Allergic/Immunologic Allergic/Immunologic ED: Denies mouth swelling or urticaria EXAM Physical Exam Const Vital Signs: 06/14/24 13:28 06/14/24 13:36 06/14/24 13:37 Temperature 97.2 F L Temperature Source Temporal Pulse Rate 121 H 122 H Pulse Rate [Lying] Pulse Rate [Sitting (for 1 minute prior to obtaining)] Pulse Rate [Standing (for 1 minute prior to obtaining)] Respiratory Rate 20 H 20 H Respiratory Effort Normal Non-Labored Respiratory Pattern Normal Blood Pressure 109/77 131/88 H Blood Pressure [Lying] Blood Pressure [Sitting (for 1 minute prior to obtaining)] Blood Pressure [Standing (for 1 minute prior to obtaining)] Blood Pressure Mean 87 102 Blood Pressure Mean [Lying] Blood Pressure Mean [Sitting (for 1 minute prior to obtaining)] Blood Pressure Mean [Standing (for 1 minute prior to obtaining)] Pulse Ox 90 95 Oxygen Delivery Method Room Air Nasal Cannula Oxygen Flow Rate (L/min) 4 06/14/24 14:36 06/14/24 15:00 06/14/24 15:26 Temperature Temperature Source Pulse Rate 107 H 112 H Pulse Rate [Lying] 109 H Pulse Rate [Sitting (for 1 minute prior to obtaining)] 107 H Pulse Rate [Standing (for 1 minute prior to obtaining)] 112 H Respiratory Rate 20 H 22 H Respiratory Effort Respiratory Pattern Blood Pressure 138/88 H 136/87 H Blood Pressure [Lying] 134/82 H Blood Pressure [Sitting (for 1 minute prior to obtaining)] 123/90 H Blood Pressure [Standing (for 1 minute prior to obtaining)] 81/68 L Blood Pressure Mean 104 103 Blood Pressure Mean [Lying] 99 (more content not included)... Normal [facility] Lactic Acidon 06-14-2024 Lactate [Moles/Vol] 1.1 mmol/L Normal 0.4-1.9 [facility] Comment on above: Order Comment: Y Performed By: #### L 100.0100, L500.4050, L503.6005 #### [facility] [address] [place], [address] M100.678on 06-14-2024 M100.678 Pending SARS-CoV-2 (COVID 19) Negative INFLUENZA A Negative INFLUENZA B Negative RSV PCR Negative [facility] Comment on above: Performed By: #### L 400.0001, M1.8 #### [facility] [address] [place], [address] Urinalysis, Completeon 06-14 Mucus Ql (Urine sed) 1+ /hpf Normal [facility] Comment on above: Order Comment: CLEAN CATCH Performed By: #### L 400.0001, M1.678 #### [facility] [address] [facility] [place], [address] AMORPHOUS 1+ Normal [facility] Comment on above: Order Comment: CLEAN CATCH Performed By: #### L 400.0001, M1.678 #### [facility] [address] [place], [address] BACTERIA 2+ /hpf Normal None Seen [facility] Comment on above: Order Comment: CLEAN CATCH Performed By: #### L 400.0001, M100.678 #### [facility] [address] [place], [address] EPI,SQUAMOUS 0-5 SEEN Normal 5-10 [facility] Comment on above: Order Comment: CLEAN CATCH Performed By: #### L 400.0001, M100.678 #### [facility] [address] [place], [address] RBC 0-5 SEEN Normal 0-5 [facility] Comment on above: Order Comment: CLEAN CATCH Performed By: #### L 400.0001, M100.678 #### [facility] [address] [place], [address] WBC 0-5 SEEN Normal 0-5 [facility] Comment on above: Order Comment: CLEAN CATCH Performed By: #### L 400.0001, M100.678 #### [facility] [address] [place], [address] Basophil percentageOrdered B y: David Arteaga on 06-17-2023 Bilirubin [Mass/Vol] 0.40 mg/dL 0.20-1.00 [facility] Comment on above: For patients on eltr ombopag therapy, use of [facility] TBIL is not recommended. Chloride [Moles/Vol] 108 mmol/L 98-107 [facility] Cholesterol [Mass/Vol] 190 mg/dL <200 [facility] Comment on above: <200 mg/dL Desirable 200-240 mg/dL Borderline >240 mg/dL High Risk Glucose [Mass/Vol] 89 mg/dL 74-106 [facility] Potassium [Moles/Vol] 4.1 mmol/L 3.5-5.1 [facility] Protein [Mass/Vol] 7.2 g/dL 6.4-8.2 [facility] Sodium [Moles/Vol] 139 mmol/L 136-145 [facility] Triglyceride [Mass/Vol] 135 mg/dL <[address] [facility] Comment on above: The drugs N-Acetylcy steine and Metamizole may falsely depress this assay.Serum Triglycerides Reference Interval Normal <150 mg/dL Borderline high 150 - 199 mg/dL High 200 - 499 mg/dL Very High > or = 500 mg/dL Laboratory - Chemistry and C hemistry - challengeOrdered By: David Arteaga on 06-17-2023 ALP [Catalytic activity/Vol] 107 U/L 45-117 [facility] ALT [Catalytic activity/Vol] 23 U/L 13-56 [facility] CO2 [Moles/Vol] 28.0 mmol/L 21.0-32.0 [facility] Globulin (S) [Mass/Vol] 3.8 g/dL 2.2-4.[address] [facility] Urea nitrogen/Creatinine [Mass ratio] 22.4 mg/mg 10-20 [facility] No Panel InformationOrdered By: David Arteaga on 06-17-2023 Estimated GFR (MDRD) Amer 92 mL/min >60 [facility] Comment on above: GFR Calc Estimated GFR (MDRD) Non-Af Amer 76 mL/min >60 [facility] Comment on above: Non- GFR Calc Vitamin D 25-Hydroxy 42.1 ng/mL [facility] Comment on above: Vitamin D 25(OH) Sta tus Range Deficiency <20 ng/mL (50nmol/L) Insufficiency 20 - 30 ng/mL (50 - 75 nmol/L) Sufficiency 30 - 100 ng/mL (75 - 250 nmol/L) Toxicity >100 ng/mL (>250 nmol/L) Serum or plasma albumin jose urement (mass/volume)Ordered By: David Arteaga on 06-17-2023 Albumin [Mass/Vol] 3.4 g/dL 3.2-5.0 [facility] Serum or plasma albumin/glob ulin mass ratioOrdered By: David Arteaga on 06-17-2023 Albumin/Globulin [Mass ratio] 0.9 {ratio} 0.9-2.4 [facility] Serum or plasma calcium jose urement (mass/volume)Ordered By: David Arteaga on 06-17-2023 Calcium [Mass/Vol] 9.1 mg/dL 8.5-10.1 [facility] Serum or plasma cholesterol in HDL measurement (mass/volume)Ordered By: David Arteaga on 06-17-2023 Cholesterol in HDL [Mass/Vol] 52 mg/dL >40 [facility] Comment on above: The drugs N-Acetylcy steine and Metamizole may falsely depress this assay. Reference Range HDL <40 mg/dL Low HDL Cholesterol HDL >or= 60 mg/dL High HDL Cholesterol Serum or plasma cholesterol in VLDL measurement (mass/volume)Ordered By: David Arteaga on 06-17-2023 Cholesterol in VLDL [Mass/Vol] 27 mg/dL 5-40 [facility] Serum or plasma creatinine m easurement (mass/volume)Ordered By: David Arteaga on 06-17-2023 Creatinine [Mass/Vol] 0.80 mg/dL 0.55-1.02 [facility] Comment on above: The validity of the calculated GFR & GFRAA in patients over 70 years has not been determined. Clinical correlation is essential. Serum or plasma low density lipoprotein (LDL) cholesterol measurement (mass/volume)Ordered By: David Arteaga on 06-17-2023 Cholesterol in LDL [Mass/Vol] 111 mg/dL 0-130 [facility] Serum or plasma urea nitroge n measurement (mass/volume)Ordered By: David Arteaga on 06-17-2023 Urea nitrogen [Mass/Vol] 18 mg/dL 7-18 [facility] Thin prep Papanicolaou smear with manual screeningOrdered By: David Arteaga on 06-17-2023 Thin prep Papanicolaou smear with manual screening 15 U/L 15-37 [facility] Thin prep Papanicolaou smear with manual screening 3 5-15 [facility] Basophil percentageOrdered B y: Dr. Arteaga on 01-14-2023 Bilirubin [Mass/Vol] 0.40 mg/dL 0.20-1.00 [facility] Comment on above: For patients on eltr ombopag therapy, use of [facility] TBIL is not recommended. Chloride [Moles/Vol] 105 mmol/L 98-107 [facility] Cholesterol [Mass/Vol] 198 mg/dL <200 [facility] Comment on above: <200 mg/dL Desirable 200-240 mg/dL Borderline >240 mg/dL High Risk Glucose [Mass/Vol] 87 mg/dL 74-106 [facility] Potassium [Moles/Vol] 4.0 mmol/L 3.5-5.1 [facility] Protein [Mass/Vol] 7.4 g/dL 6.4-8.2 [facility] Sodium [Moles/Vol] 142 mmol/L 136-145 [facility] Triglyceride [Mass/Vol] 154 mg/dL <[address] [facility] Comment on above: The drugs N-Acetylcy steine and Metamizole may falsely depress this assay.Serum Triglycerides Reference Interval Normal <150 mg/dL Borderline high 150 - 199 mg/dL High 200 - 499 mg/dL Very High > or = 500 mg/dL Laboratory - Chemistry and C hemistry - challengeOrdered By: Dr. Arteaga on 01-14-2023 ALP [Catalytic activity/Vol] 105 U/L 45-117 [facility] ALT [Catalytic activity/Vol] 27 U/L 13-56 [facility] CO2 [Moles/Vol] 26.0 mmol/L 21.0-32.0 [facility] Globulin (S) [Mass/Vol] 3.5 g/dL 2.2-4.[address] [facility] Urea nitrogen/Creatinine [Mass ratio] 19.4 mg/mg 10-20 [facility] No Panel InformationOrdered By: Dr. Arteaga on 01-14-2023 Estimated GFR (MDRD) Amer 103 mL/min >60 [facility] Comment on above: GFR Calc Estimated GFR (MDRD) Non-Af Amer 86 mL/min >60 [facility] Comment on above: Non- GFR Calc Parathyroid Hormone (Intact) 31.0 pg/mL 18.4-80.1 [facility] Thyroid Stimulating Hormone (TSH) 1.56 uIU/mL 0.358-3.74 [facility] Vitamin D 25-Hydroxy 37.1 ng/mL [facility] Comment on above: Vitamin D 25(OH) Sta tus Range Deficiency <20 ng/mL (50nmol/L) Insufficiency 20 - 30 ng/mL (50 - 75 nmol/L) Sufficiency 30 - 100 ng/mL (75 - 250 nmol/L) Toxicity >100 ng/mL (>250 nmol/L) Serum Treponema species anti body detectionOrdered By: Dr. Arteaga on 01-14-2023 Treponema sp Ab Ql (S) Non-Reactive [facility] Serum or plasma albumin jose urement (mass/volume)Ordered By: Dr. Arteaga on 01-14-2023 Albumin [Mass/Vol] 3.9 g/dL 3.2-5.0 [facility] Serum or plasma albumin/glob ulin mass ratioOrdered By: Dr. Arteaga on 01-14-2023 Albumin/Globulin [Mass ratio] 1.1 {ratio} 0.9-2.4 [facility] Serum or plasma calcium jose urement (mass/volume)Ordered By: Dr. Arteaga on 01-14-2023 Calcium [Mass/Vol] 9.7 mg/dL 8.5-10.1 [facility] Serum or plasma cholesterol in HDL measurement (mass/volume)Ordered By: Dr. Arteaag on 01-14-2023 Cholesterol in HDL [Mass/Vol] 55 mg/dL >40 [facility] Comment on above: The drugs N-Acetylcy steine and Metamizole may falsely depress this assay. Reference Range HDL <40 mg/dL Low HDL Cholesterol HDL >or= 60 mg/dL High HDL Cholesterol Serum or plasma cholesterol in VLDL measurement (mass/volume)Ordered By: Dr. Arteaga on 01-14-2023 Cholesterol in VLDL [Mass/Vol] 31 mg/dL 5-40 [facility] Serum or plasma creatinine m easurement (mass/volume)Ordered By: Dr. Arteaga on 01-14-2023 Creatinine [Mass/Vol] 0.72 mg/dL 0.55-1.02 [facility] Comment on above: The validity of the calculated GFR & GFRAA in patients over 70 years has not been determined. Clinical correlation is essential. Serum or plasma low density lipoprotein (LDL) cholesterol measurement (mass/volume)Ordered By: Dr. Arteaga on 01-14-2023 Cholesterol in LDL [Mass/Vol] 112 mg/dL 0-130 [facility] Serum or plasma urea nitroge n measurement (mass/volume)Ordered By: Dr. Arteaga on 01-14-2023 Urea nitrogen [Mass/Vol] 14 mg/dL 7-18 [facility] Thin prep Papanicolaou smear with manual screeningOrdered By: Dr. Arteaga on 01-14-2023 Thin prep Papanicolaou smear with manual screening 19 U/L 15-37 [facility] Thin prep Papanicolaou smear with manual screening 11 5-15 [facility] Basophil percentageon 2021 Bilirubin [Mass/Vol] 0.40 mg/dL 0.20-1.00 [facility] Work Phone: Comment on above: For patients on eltr ombopag therapy, use of [facility] TBIL is not recommended. Chloride [Moles/Vol] 105 mmol/L 98-107 [facility] Work Phone: Cholesterol [Mass/Vol] 214 mg/dL <200 [facility] Work Phone: Comment on above: <200 mg/dL Desirable 200-240 mg/dL Borderline >240 mg/dL High Risk Glucose [Mass/Vol] 92 mg/dL 74-106 [facility] Work Phone: Potassium [Moles/Vol] 4.1 mmol/L 3.5-5.1 [facility] Work Phone: Protein [Mass/Vol] 7.5 g/dL 6.4-8.2 [facility] Work Phone: Sodium [Moles/Vol] 138 mmol/L 136-145 [facility] Work Phone: Triglyceride [Mass/Vol] 162 mg/dL <199 [facility] Work Phone: Comment on above: The drugs N-Acetylcy steine and Metamizole may falsely depress this assay.Serum Triglycerides Reference Interval Normal <150 mg/dL Borderline high 150 - 199 mg/dL High 200 - 499 mg/dL Very High > or = 500 mg/dL Laboratory - Chemistry and C hemistry - challengeon 05-07-2022 ALP [Catalytic activity/Vol] 100 U/L 45-117 [facility] Work Phone: ALT [Catalytic activity/Vol] 20 U/L 13-56 [facility] Work Phone: CO2 [Moles/Vol] 27.0 mmol/L 21.0-32.0 [facility] Work Phone: Globulin (S) [Mass/Vol] 3.8 g/dL 2.2-4.[address] [facility] Work Phone: Urea nitrogen/Creatinine [Mass ratio] 22.6 mg/mg 10-20 [facility] Work Phone: No Panel Informationon 05-07 Estimated GFR (MDRD) Amer 93 mL/min >60 [facility] Work Phone: Comment on above: GFR Calc Estimated GFR (MDRD) Non-Af Amer 77 mL/min >60 [facility] Work Phone: Comment on above: Non- GFR Calc Ionized Calcium 5.4 mg/dL 4.5-5.6 [facility] Work Phone: Comment on above: Performed at: [address] [id number] Director: Julio Barrios PhD, Phone: [phone] Parathyroid Hormone (Intact) 37.4 pg/mL 18.4-80.1 [facility] Work Phone: Thyroid Stimulating Hormone (TSH) 1.30 uIU/mL 0.358-3.74 [facility] Work Phone: Vitamin D 25-Hydroxy 36.6 ng/mL [facility] Work Phone: Comment on above: Vitamin D 25(OH) Sta tus Range Deficiency <20 ng/mL (50nmol/L) Insufficiency 20 - 30 ng/mL (50 - 75 nmol/L) Sufficiency 30 - 100 ng/mL (75 - 250 nmol/L) Toxicity >100 ng/mL (>250 nmol/L) Serum or plasma albumin jose urement (mass/volume)on 05-07-2022 Albumin [Mass/Vol] 3.7 g/dL 3.2-5.0 [facility] Work Phone: Serum or plasma albumin/glob ulin mass ratioon 05-07-2022 Albumin/Globulin [Mass ratio] 1.0 {ratio} 0.9-2.4 [facility] Work Phone: Serum or plasma calcium jose urement (mass/volume)on 05-07-2022 Calcium [Mass/Vol] 9.5 mg/dL 8.5-10.1 [facility] [facility] Work [facility]: Serum or plasma cholesterol in HDL measurement (mass/volume)on 05-07-2022 Cholesterol in HDL [Mass/Vol] 50 mg/dL >40 [facility] Work Phone: Comment on above: The drugs N-Acetylcy steine and Metamizole may falsely depress this assay. Reference Range HDL <40 mg/dL Low HDL Cholesterol HDL >or= 60 mg/dL High HDL Cholesterol Serum or plasma cholesterol in VLDL measurement (mass/volume)on 05-07-2022 Cholesterol in VLDL [Mass/Vol] 32 mg/dL 5-40 [facility] Work Phone: Serum or plasma creatinine m easurement (mass/volume)on 05-07-2022 Creatinine [Mass/Vol] 0.80 mg/dL 0.55-1.02 [facility] Work Phone: Comment on above: The validity of the calculated GFR & GFRAA in patients over 70 years has not been determined. Clinical correlation is essential. Serum or plasma low density lipoprotein (LDL) cholesterol measurement (mass/volume)on 05-07-2022 Cholesterol in LDL [Mass/Vol] 132 mg/dL 0-130 [facility] Work Phone: Serum or plasma urea nitroge n measurement (mass/volume)on 05-07-2022 Urea nitrogen [Mass/Vol] 18 mg/dL 7-18 [facility] Work Phone: Thin prep Papanicolaou smear with manual screeningon 05-07-2022 Thin prep Papanicolaou smear with manual screening 19 U/L 15-37 [facility] Work Phone: Thin prep Papanicolaou smear with manual screening 6 5-15 [facility] Work Phone: Vital Signs Date Time Vital Sign Value Performing Clinician Faci lity 02-03-2025 08:41-0400 Body height 162.[address] Deisy Arteaga MD Work Phone: [facility] 02-03-2025 08:41-0400 Body temperature 96.9 [degF] Dr. Deisy Arteaga MD Work Phone: [facility] 02-03-2025 08:41-0400 Diastolic blood pressure 62 mm[Hg] Dr. Deisy Arteaga MD Work Phone: [facility] 02-03-2025 08:41-0400 Heart rate 73 /min Dr. Deisy Arteaga MD Work Phone: [facility] 02-03-2025 08:41-0400 Respiratory rate 16 /min Dr. Deisy Arteaga MD Work Phone: [facility] 02-03-2025 08:41-0400 SaO2% (BldA) [Mass fraction] 98 % Dr. Deisy Arteaga MD Work Phone: [facility] 02-03-2025 08:41-0400 Systolic blood pressure 124 mm[Hg] Dr. Deisy Arteaga MD Work Phone: [facility] 01-10-2025 16:23-0400 Body temperature 98 [degF] Dr. Deisy Arteaga MD Work Phone: [facility] 01-10-2025 16:23-0400 Diastolic blood pressure 75 mm[Hg] Dr. Deisy Arteaga MD Work Phone: [facility] 01-10-2025 16:23-0400 Heart rate 92 /min Dr. Deisy Arteaga MD Work Phone: [facility] 01-10-2025 16:23-0400 Respiratory rate 20 /min Dr. Deisy Arteaga MD Work Phone: [facility] 01-10-2025 16:23-0400 SaO2% (BldA) [Mass fraction] 93 % Dr. Deisy Arteaga MD Work Phone: [facility] 01-10-2025 16:23-0400 Systolic blood pressure 145 mm[Hg] Dr. Deisy Arteaga MD Work Phone: [phone] [place] [address] 01-10-2025 15:45-0400 Inhaled oxygen flow rate 1 L/min Dr. Deisy Arteaga MD Work Phone: [facility] 01-10-2025 15:18-0400 Inhaled oxygen concentration 3 % Dr. Deisy Arteaga MD Work Phone: [facility] 01-10-2025 11:02-0400 Body height 162.[address] Deisy Arteaga MD Work Phone: [facility] 01-10-2025 11:02-0400 Body mass index (BMI) [Ratio] 23.1 kg/m2 Dr. Deisy Arteaga MD Work Phone: [facility] 01-10-2025 11:02-0400 Body weight 61.[address] Deisy Arteaga MD Work Phone: [facility] 01-09-2025 08:50-0400 Body temperature 98 [degF] Dr. Deisy Arteaga MD Work Phone: [facility] 01-09-2025 08:50-0400 Diastolic blood pressure 68 mm[Hg] Dr. Deisy Arteaga MD Work Phone: [facility] 01-09-2025 08:50-0400 Heart rate 105 /min Dr. Deisy Arteaga MD Work Phone: [facility] 01-09-2025 08:50-0400 SaO2% (BldA) [Mass fraction] 99 % Dr. Deisy Arteaga MD Work Phone: [facility] 01-09-2025 08:50-0400 Systolic blood pressure 120 mm[Hg] Dr. Deisy Arteaga MD Work Phone: [facility] 01-06-2025 08:25-0500 Heart rate 95 /min Dr. Deisy Arteaga MD Work Phone: [facility] 01-06-2025 07:51-0500 Body mass index (BMI) [Ratio] 23.1 kg/m2 Dr. Deisy Arteaga MD Work Phone: [facility] 01-06-2025 07:51-0500 Body temperature 97.7 [degF] Dr. Deisy Arteaga MD Work Phone: [facility] 01-06-2025 07:51-0500 Body weight 60.[address] Deisy Arteaga MD Work Phone: [facility] 01-06-2025 07:51-0500 Diastolic blood pressure 60 mm[Hg] Dr. Deisy Arteaga MD Work Phone: [facility] 01-06-2025 07:51-0500 Respiratory rate 15 /min Dr. Deisy Arteaga MD Work Phone: [facility] 01-06-2025 07:51-0500 SaO2% (BldA) [Mass fraction] 97 % Dr. Deisy Arteaga MD Work Phone: [facility] 01-06-2025 07:51-0500 Systolic blood pressure 118 mm[Hg] Dr. Deisy Arteaga MD Work Phone: [facility] Encounters Encounter Date Encounter Type Care Provider Facility Start: 06-23-2025 ambulatory Deisy Barkley lity:[facility] Start: 06-17-2025 ambulatory Deisy Barkley lity:[facility] Start: 02-03-2025 End: 02-03-[address] Deisy Arteaga MD -Medical Out Work Phone: Start: 02-03-2025 End: 02-03-[address] Deisy Arteaga MD Work Phone: [facility] Work Phone: Start: 01-10-2025 End: 01-10-2025 Emergency department patient visit Dr. Deisy Arteaga MD Work Phone: -Emergency Department Work Phone: Start: 01-09-2025 End: 01-09-2025 Patient encounter procedure Blas BERRY [facility] Work Phone: Start: 01-09-2025 End: 01-09-2025 ambulatory Blas BERRY Facility:[facility] Start: 01-06-2025 End: 01-06-2025 Patient encounter procedure Tru Guidry DRY PAN FEEDER-C [facility] Work Phone: Start: 01-06-2025 End: 01-06-2025 ambulatory Tru Guidry NP Facility:[facility] Start: 12-01-2024 End: 12-01-2024 ambulatory Kash Sanford Facility:[facility] Start: 12-01-2024 Registered Recurring Kash rabago DPM -Physical Therapy Work Phone: Start: 08-04-2024 End: 08-04-2024 ambulatory [facility] Facility:[facility] Start: 07-08-2024 End: 07-[facility] Start: 07-06-2024 End: 07-06-2024 [facility] Start: 06-22-2024 End: 06-22-2024 [facility]ulatory [facility] Start: 06-16-2024 End: 06-16-2024 [facility] Start: 06-14-2024 End: 06-14-2024 Emergency department patient visit Deisy Arteaga Facility:[facility] Start: 06-19-2023 End: 06-19-2023 ambulatory [facility] Work Phone: Start: 06-19-2023 End: 06-19-2023 Patient encounter procedure [facility]-Outpatient Breast Imaging Work Phone: Start: 06-17-2023 End: 06-17-2023 ambulatory [facility] Work Phone: Start: 06-17-2023 End: 06-17-2023 Patient encounter [facility] Start: 06-15-2023 End: 06-15-2023 ambulatory [facility] Work Phone: Start: 06-15-2023 End: 06-15-2023 Patient encounter procedure [facility] Work [facility]: Start: 01-14-2023 End: 01-14-2023 ambulatory [facility] Work Phone: Start: 01-14-2023 End: 01-14-2023 Patient encounter procedure [facility] Start: 05-07-2022 End: 05-07-2022 [facility] Start: 02-17-2019 [facility] Procedures Date Procedure Procedure Detail Performing Clinician Start: 01-10-2025 Gram stain microscopy King Arteaga MD Work Phone: Start: 01-10-2025 Microbial culture, routine Dr. Deisy Arteaga MD Work Phone: Start: 06-19-2023 Screening mammography Start: 06-15-2023 CT of chest Plan of Treatment Date Care Activity Detail Author Start: 01-10-2025 End: 01-10-2025 [facility] Start: 01-10-2025 Incision & drainage abscess complicated/multiple I&D ABSCESS COMP/MULTIPLE [facility] Start: 01-10-2025 Microscopic observat ion [Identifier] in Unspecified specimen by Gram stain [facility] Start: 01-10-2025 Wound Culture Wound Culture [facility] Patient Education ED Abscess Inc ision And Drainage [facility] Work Phone: Patient referral [facility] Work Phone: Wound microscopy, cu lture and sensitivities [facility] Payers Date Payer Category Payer Self-pay [id number] 2022 Private Health Insurance [id number] 2016 Unknown [id number] Unknown [id number] Unknown [id number] 2.16.8 [id number] Unknown [id number] 2.16.8 [id number] Unknown [id number] 2.16.8 [id number] Unknown [id number] 2.16.8 [id number] Unknown [id number] 2.16.8 [id number] Unknown [id number] 2.16.8 [id number] Unknown [id number] 2.16.8 [id number] Unknown [id number] 2.16.8 [id number] Unknown [id number] 2.16.8 [id number] Unknown [id number] 2.16.8 [id number] Unknown [id number] 2.16.8 [id number] Unknown [id number] 2.16.8 [id number] Unknown [id number] 2.16.8 [id number] Social History Date Type Detail Facility Tobacco smoking stat [facility] Unknown if ever smoked [facility] Work Phone: Start: 1955 Sex Assigned At Female [facility] Start: 01-10-2025 Tobacco smoking stat [facility] Current Heavy tobacco smoker [facility] Start: 01-10-2025 End: 02-04-2025 Sex Female (finding) [facility] Mental Status Date Assessment Result Facility 02-03-2025 Cognitive function Awake;Alert;A ppropriate;Fol lows Commands [facility] Work Phone: 01-10-2025 Cognitive function Awake;Alert;Appropriat e [facility] Work Phone: Discharge summary 01-10-2025 Note Date & Type Note Facility 01-10-2025 Discharge summary [facility] Discharge summary 01-10-2025 Note Date & Type Note Facility 01-10-2025 Discharge summary Note Date/Time January 10, 2025 4:10pm [facility] Medical Records Department [address] [place] [address] Emergency Department Summary 01/10/25 MR#: [id number] Acct: [id number] Name: THURSDAYGABBY Rep #:[id number] : 1955 69 From: Chaka Montenegro MD PCP: Dr. Deisy Arteaga MD Status :REG ER Location: ED HPI History of Present Illness Chief Complaint: Wound Informant: patient Narrative Narrative: 69-year-old female presenting with a tender swollen area on her face below her chin, started a week ago as a small spot on the skin nothing intraorally, it hasbeen growing and spreading caudally. She states she has had several visits to urgent care, she has not had any incision and drainage, they just put her on antibiotics. She states this morning it started to drain and it is extremely painful. She denies any fevers, chills, systemic symptoms. She states her COPDhas been stable and not giving her any acute issues. She is not on home oxygen. She denies any problems breathing or swallowing with regards to the past week associated with this tender swollen area. [facility] Medical History Cervical radiculopathy Chronic pain Hypercholesterolemia Osteoporosis COPD (chronic obstructive pulmonary disease) Home Medications ?Medication ?Instructions ?Recorded ?Last Taken ?Type albuterol sulfate 90 mcg/actuation 2 puff inhalation 4 X/DAY PRN 06/14/24 06/14/24 History aerosol inhaler shortness of breath or wheez ing atorvastatin 20 mg tablet 20 mg PO DAILY 06/14/2406/02 History denosumab 60 mg/mL subcutaneous 60 mg subcut [id number] 01/09/25 Unknown History syringe (Prolia) hydrocodone-acetaminophen 5-325mg 1 tab PO Q6H PRN PRN Pain 3 days 01/10/25 Unknown Rx 5mg-325mg #10 TABLETS sulfamethoxazole 800 1 tab PO BID #20 TABLETS 09/26 Unknown Rx mg-trimethoprim 160 mg tablet Allergy/AdvReac Type Severity Reaction Status Date / Time No Known Allergies Allergy Verified 01/09/25 08:48 Family History no significant family his Surgical History History of dental surgery Social History Smoking Status: Heavy Smoker (>10/day) alcohol intake: never substance use type: does not use ROS ROS ED Constitutional Constitutional ED: Denies chills or fever(s) Eyes Eyes: Denies change in vision or diplopia ENT ENT ED: Denies rhinorrhea or sore throat Cardiovascular Cardiovascular: Denies chest pain or palpitations Respiratory/Chest Respiratory/Chest: Denies cough or dyspnea Gastrointestinal Gastrointestinal: Denies abdominal pain, diarrhea, nausea or vomiting Genitourinary Genitourinary ED: Denies dysuria or hematuria Musculoskeletal Musculoskeletal: Reports neck pain; Denies back pain Integumentary Reports abscess; Denies rash Neurologic Neurologic: Denies headache(s), paresthesias or weakness Psychiatric Psychiatric: Denies anxiety or suicidal thoughts EXAM Physical Exam Const Vital Signs: 01/10/25 11:02 03/11/25 11:04 01/10/25 12:04 Temperature 97.3 F L 97.3 F L 97.3 F L Temperature Source Temporal Oral Oral Pulse Rate 97 94 91 Pulse Rate [1 (Initial Baseline)] Pulse Rate [2] Pulse Rate [3] Pulse Rate [4] Pulse Rate [5] Respiratory Rate 20 H 19 H 19 H Respiratory Rate [1 (Initial Baseline)] Respiratory Rate [2] Respiratory Rate [3] Respiratory Rate [4] Respiratory Rate [5] Blood Pressure 108/63 108/63 140/81 H Blood Pressure [1 (Initial Baseline)] Blood Pressure [2] Blood Pressure [3] Blood Pressure [4] Blood Pressure [5] Blood Pressure Mean 78 78 100 Baseline BP Pulse Ox 100 100 93 Oxygen Delivery Method Room Air Room Air Room Air Oxygen Delivery Method [1 (Initial Baseline)] Oxygen Delivery Method [2] Oxygen Delivery Method [3] Oxygen Delivery Method [4] Oxygen Delivery Method [5] Oxygen Flow Rate (L/min) Oxygen Flow Rate (L/min) [1 (Initial Baseline)] Oxygen Flow Rate (L/min) [2] Oxygen Flow Rate (L/min) [3] Oxygen Flow Rate (L/min) [4] Oxygen Flow Rate (L/min) [5] Fraction of Inspired Oxygen (FIO2) [1 (Initial Baseline)] Fraction of Inspired Oxygen (FIO2) [2] EtCo2 (Normal 35-45 , high quality CPR 10-20 & ROSC>/=40mmHg EtCo2 (Normal 35-45 , high quality CPR 10-20 & ROSC>/=40mmHg [1 (Initial Baseline)] EtCo2 (Normal 35-45 , high quality CPR 10-20 & ROSC>/=40mmHg [2] EtCo2 (Normal 35-45 , high quality CPR 10-20 & ROSC>/=40mmHg [3] EtCo2 (Normal 35-45 , high quality CPR 10-20 & ROSC>/=40mmHg [4] EtCo2 (Normal 35-45 , high quality CPR 10-20 & ROSC>/=40mmHg [5] 01/10/25 13:00 01/10/25 13:00 01/10/25 14:00 Temperature 97.3 F L 97.3 F L Temperature Source Oral Oral Pulse Rate 94 90 Pulse Rate [1 (Initial Baseline)] Pulse Rate [2] Pulse Rate [3] Pulse Rate [4] Pulse Rate [5] Respiratory Rate 21 H 22 H Respiratory Rate [1 (Initial Baseline)] Respiratory Rate [2] Respiratory Rate [3] Respiratory Rate [4] Respiratory Rate [5] Blood Pressure 140/81 H 140/81 H 148/81 H Blood Pressure [1 (Initial Baseline)] Blood Pressure [2] Blood Pressure [3] Blood Pressure [4] Blood Pressure [5] Blood Pressure Mean 100 100 103 Baseline BP Pulse Ox 92 93 Oxygen Delivery Method Room Air Room Air Oxygen Delivery Method [1 (Initial Baseline)] Oxygen Delivery Method [2] Oxygen Delivery Method [3] Oxygen Delivery Method [4] Oxygen Delivery Method [5] Oxygen Flow Rate (L/min) Oxygen Flow Rate (L/min) [1 (Initial Baseline)] Oxygen Flow Rate (L/min) [2] Oxygen Flow Rate (L/min) [3] Oxygen Flow Rate (L/min) [4] Oxygen Flow Rate (L/min) [5] Fraction of Inspired Oxygen (FIO2) [1 (Initial Baseline)] Fraction of Inspired Oxygen (FIO2) [2] EtCo2 (Normal 35-45 , high quality CPR 10-20 & ROSC>/=40mmHg EtCo2 (Normal 35-45 , high quality CPR 10-20 & ROSC>/=40mmHg [1 (Initial Baseline)] EtCo2 (Normal 35-45 , high quality CPR 10-20 & ROSC>/=40mmHg [2] EtCo2 (Normal 35-45 , high quality CPR 10-20 & ROSC>/=40mmHg [3] EtCo2 (Normal 35-45 , high quality CPR 10-20 & ROSC>/=40mmHg [4] EtCo2 (Normal 35-45 , high quality CPR 10-20 & ROSC>/=40mmHg [5] 01/10/25 14:54 01/10/25 14:54 01/10/25 15:16 Temperature 97.3 F L Temperature Source Oral Pulse Rate 88 Pulse Rate [1 (Initial Baseline)] Pulse Rate [2] Pulse Rate [3] Pulse Rate [4] Pulse Rate [5] Respiratory Rate 16 Respiratory Rate [1 (Initial Baseline)] Respiratory Rate [2] Respiratory Rate [3] Respiratory Rate [4] Respiratory Rate [5] Blood Pressure 143/74 H 143/74 H Blood Pressure [1 (Initial Baseline)] Blood Pressure [2] Blood Pressure [3] Blood Pressure [4] Blood Pressure [5] Blood Pressure Mean 97 97 Baseline BP Pulse Ox 94 Oxygen Delivery Method Room Air Oxygen Delivery Method [1 (Initial Baseline)] Oxygen Delivery Method [2] Oxygen Delivery Method [3] Oxygen Delivery Method [4] Oxygen Delivery Method [5] Oxygen Flow Rate (L/min) Oxygen Flow Rate (L/min) [1 (Initial Baseline)] Oxygen Flow Rate (L/min) [2] Oxygen Flow Rate (L/min) [3] Oxygen Flow Rate (L/min) [4] Oxygen Flow Rate (L/min) [5] Fraction of Inspired Oxygen (FIO2) [1 (Initial Baseline)] Fraction of Inspired Oxygen (FIO2) [2] EtCo2 (Normal 35-45 , high quality CPR 10-20 & ROSC>/=40mmHg 31 EtCo2 (Normal 35-45 , high quality CPR 10-20 & ROSC>/=40mmHg [1 (Initial Baseline)] EtCo2 (Normal 35-45 , high quality CPR 10-20 & ROSC>/=40mmHg [2] EtCo2 (Normal 35-45 , high quality CPR 10-20 & ROSC>/=40mmHg [3] EtCo2 (Normal 35-45 , high quality CPR 10-20 & ROSC>/=40mmHg [4] EtCo2 (Normal 35-45 , high quality CPR 10-20 & ROSC>/=40mmHg [5] 01/10/25 15:16 01/10/25 15:18 01/10/25 15:40 Temperature Temperature Source Pulse Rate 85 91 Pulse Rate [1 (Initial Baseline)] 88 Pulse Rate [2] 89 Pulse Rate [3] 93 Pulse Rate [4] 107 H Pulse Rate [5] 95 Respiratory Rate 24 H 24 H Respiratory Rate [1 (Initial Baseline)] 21 H Respiratory Rate [2] 16 Respiratory Rate [3] 14 Respiratory Rate [4] 23 H Respiratory Rate [5] 17 Blood Pressure 161/89 H 111/87 H Blood Pressure [1 (Initial Baseline)] 143/83 H Blood Pressure [2] 149/85 H Blood Pressure [3] 168/111 H Blood Pressure [4] 175/98 H Blood Pressure [5] 175/98 H Blood Pressure Mean Baseline BP 161/89 Pulse Ox 97 92 Oxygen Delivery Method Nasal Cannula Nasal Cannula Oxygen Delivery Method [1 (Initial Baseline)] Nasal Cannula Oxygen Delivery Method [2] Nasal Cannula Oxygen Delivery Method [3] Nasal Cannula Oxygen Delivery Method [4] Nasal Cannula Oxygen Delivery Method [5] Nasal Cannula Oxygen Flow Rate (L/min) 2 2 Oxygen Flow Rate (L/min) [1 (Initial Baseline)] 2 Oxygen Flow Rate (L/min) [2] 3 Oxygen Flow Rate (L/min) [3] 3 Oxygen Flow Rate (L/min) [4] 3 Oxygen Flow Rate (L/min) [5] 2 Fraction of Inspired Oxygen (FIO2) [1 (Initial Baseline)] 2 Fraction of Inspired Oxygen (FIO2) [2] 3 EtCo2 (Normal 35-45 , high quality CPR 10-20 & ROSC>/=40mmHg 27 EtCo2 (Normal 35-45 , high quality CPR 10-20 & ROSC>/=40mmHg [1 (Initial Baseline)] 28 EtCo2 (Normal 35-45 , high quality CPR 10-20 & ROSC>/=40mmHg [2] 30 EtCo2 (Normal 35-45 , high quality CPR 10-20 & ROSC>/=40mmHg [3] 26 EtCo2 (Normal 35-45 , high quality CPR 10-20 & ROSC>/=40mmHg [4] 27 EtCo2 (Normal 35-45 , high quality CPR 10-20 & ROSC>/=40mmHg [5] 30 01/10/25 15:45 01/10/25 15:48 01/10/25 15:50 Temperature 97.3 F L Temperature Source Oral Pulse Rate 94 91 93 Pulse Rate [1 (Initial Baseline)] Pulse Rate [2] Pulse Rate [3] Pulse Rate [4] Pulse Rate [5] Respiratory Rate 24 H 20 H 22 H Respiratory Rate [1 (Initial Baseline)] Respiratory Rate [2] Respiratory Rate [3] Respiratory Rate [4] Respiratory Rate [5] Blood Pressure 152/88 H 152/88 H 150/87 H Blood Pressure [1 (Initial Baseline)] Blood Pressure [2] Blood Pressure [3] Blood Pressure [4] Blood Pressure [5] Blood Pressure Mean 109 Baseline BP Pulse Ox 92 94 91 Oxygen Delivery Method Nasal Cannula Room Air Room Air Oxygen Delivery Method [1 (Initial Baseline)] Oxygen Delivery Method [2] Oxygen Delivery Method [3] Oxygen Delivery Method [4] Oxygen Delivery Method [5] Oxygen Flow Rate (L/min) 1 Oxygen Flow Rate (L/min) [1 (Initial Baseline)] Oxygen Flow Rate (L/min) [2] Oxygen Flow Rate (L/min) [3] Oxygen Flow Rate (L/min) [4] Oxygen Flow Rate (L/min) [5] Fraction of Inspired Oxygen (FIO2) [1 (Initial Baseline)] Fraction of Inspired Oxygen (FIO2) [2] EtCo2 (Normal 35-45 , high quality CPR 10-20 & ROSC>/=40mmHg 26 32 EtCo2 (Normal 35-45 , high quality CPR 10-20 & ROSC>/=40mmHg [1 (Initial Baseline)] EtCo2 (Normal 35-45 , high quality CPR 10-20 & ROSC>/=40mmHg [2] EtCo2 (Normal 35-45 , high quality CPR 10-20 & ROSC>/=40mmHg [3] EtCo2 (Normal 35-45 , high quality CPR 10-20 & ROSC>/=40mmHg [4] EtCo2 (Normal 35-45 , high quality CPR 10-20 & ROSC>/=40mmHg [5] Positive well nourished and well developed General Appearance ED: well developed and NAD HEENT Reports moist mucous membranes HEENT Narrative: Patient has a large tender tightly swollen and erythematous indurated abscess submental. The erythema extends caudally to the manubrium. There is an obvious nidus closer to her chin to the right of midline where there is active pus draining out of it. Intraorally, the exam is normal. Posterior pharynx is clear, there is no stridor, her tongue is normal, there is no elevation and when she elevates it the submental tissues are nondistended and nontender. There is no trismus. normocephalic and atraumatic Eyes PERRL and EOMs intact bilaterally Neck full ROM and supple Resp normal respiratory effort and clear to auscultation bilaterally Cardio regular rate, regular rhythm and no murmurs GI non-tender and non-distended Auscultation: normoactive bowel sounds Palpation: soft Back/Spine no CVA tenderness General Back: other FROM Extremity normal to inspection General Extremety ED: Negative for edema, pulses abnormal or tenderness General Extremity: Negative for edema or pulses abnormal Neuro oriented x3, CN's II-XII intact bilaterally and no sensory deficits noted Sensorium / Orientation: awake and alert Motor Exam: strength 5/5 throughout Skin no rashes or lesions noted and no wounds MDM MDM MDM Narrative Medical decision making narrative: This is a large submental abscess but without gianni Ludwigs angina or symptoms of airway/esophageal involvement. Patient was sedated for this in addition to the abscess drained and packed see the procedure note. Patient was monitored while she recovered, I discussed with Dr. Stewart for outpatient ENT follow-up, and am going to change the patient's antibiotic from amoxicillin/clavulanate to Bactrim, assuming this is MRSA until proven otherwise. She is to call for an appt with ENT and they will see her before the weekend. Management Discussion w/another healthcare provider: [employer] Back Operator (ENT) Procedures Procedural Sedation 1 (Initial Baseline): Consent Signed: Yes Any Problems With Anesthesia: No Sedation medication: Versed Dose: 4 Route: IV Total Moderate Sedation Units: 13 Maliampati Score: Class II ASA Classification: II Other Procedures Procedure(s): Complex abscess incision and drainage: After procedural sedation and informed consent, locally anesthetized the patient with 4 cc of plain 1% lidocaine, incised with a #10 blade, probed and deloculated, large amount of purulent material was obtained and sent for a culture. Cavity was irrigated, large amount of pus was expressed, and the large submental cavity was packed with iodoform gauze. There was no significant bleeding from the procedure, suggesting there were no jugular vessels involved. Patient is able to speak normally after the procedure there were no complications, tolerated well. Dressed with bacitracin. Discharge Plan Triage Chief Complaint: Wound ED Provider: Chaka Montenegro Dx/Rx/DC Orders Clinical Impression: Submental abscess Instructions: ED Abscess Incision And Drainage Prescriptions: New sulfamethoxazole-trimethoprim 800-160 mg tablet 1 tab PO BID Qty: 20 0RF hydrocodone-acetaminophen 5-325 mg tablet 1 tab PO Q6H PRN PRN (Reason: Pain) 3 Days Qty: 10 0RF Continued Prolia 60 mg/mL syringe 60 mg subcut [id number] atorvastatin 20 mg tablet 20 mg PO DAILY albuterol sulfate 90 mcg/actuation HFA aerosol inhaler 2 puff INHALATION 4X/DAY PRN (Reason: shortness of breath or wheezing) Discontinued amoxicillin-pot clavulanate 875-125 mg tablet 1 tab PO BID Qty: 20 0RF Primary Care Provider: Deisy Arteaga Referrals: Deisy Arteaga MD [Primary Care Provider] - Jeff Stewart MD [Med Staff - Active Staff] - 01/12/25 Activity Restrictions/Additional Instructions: Change gauze dressing over drainage site as needed, may need to be couple times in the first 24 hours. Try to leave gauze packing in place until you are seen by ENT on or Thursday; call for appointment date and time. Print Language: [place] Disposition Disposition: Home, Self Care What to do if you have Problems For any increased pain, shortness of breath, bleeding, nausea or vomiting, chestpain, or any unexpected problems, contact your Primary Care Provider. Call [facility] ([phone]) or report to the closest Emergency Room. Call 911 if necessary. 01/10/25 1610 <Electronically signed by Chaka Montenegro MD> Cosigner Signature (if applicable): CC: Dr. Deisy Arteaga MD; Dr. Jeff Stewart MD ~ Signed [facility] Work Phone: Evaluation note 01-06-2025 Note Date & Type Note Facility 01-06-2025 Evaluation note Diagnosis Onset Date Resolution Pain in gums acute January 06, 2 025 8:04am [facility] Work Phone: Evaluation note Note Date & Type Note Facility Evaluation note No assessment information availa ble [facility] Work Phone: Hospital Discharge instructions Note Date & Type Note Facility Hospital Discharge instructions Additional Instructions Change gauze dressing over drainage site as needed, may need to be couple times in the first 24 hours. Try to leave gauze packing in place until you are seen by ENT on or Thursday; call for appointment date and time. [facility] Work Phone: Reason for referral (narrative) Note Date & Type Note Facility Reason for referral (narrative) No reason for referral information available [facility] Work Phone: Summary Purpose Family History No Family History Records FoundNo Family History Records Found Advance Directives No Advanced Directives Records Found Advance Directive Response Recorded Date/ Time Living Will Yes January 10, 2025 1:06pm Power of Set Up Operator Yes January 10 1:06pm Name of Medical Power of Set Up Operator Emmanuel January 10, 2025 1:06pm Advance Directive Response Recorded Date/ Time Living Will Yes June 14 1:37pm Do you have a Healthcare Power of Set Up Operator? Yes June 14, 2024 1:37pm Living Will Yes January 10, 2025 1:06pm Do you have a Healthcare Power of Set Up Operator? Yes January 10, 2025 1:06pm Name of Medical Power of Set Up Operator Emmanuel January 10, 2025 1:06pm Advance Directive Response Recorded Date/ Time Living Will Yes June 14 1:37pm Do you have a Healthcare Power of Set Up Operator? Yes June 14, 2024 1:37pm Chief Complaint and Reason for Visit Chief Complaint TOBACCO ABUSE SCREENING Chief Complaint Admit Date FOOT RX HERE December 01, 2024 1 2:00pm CONCERN FOR INFECTED GUMS January 06 8:04am THROAT PAIN January 09, 2025 8:4 2am WOUND January 10, 2025 11: 00am Reason for Visit Admit Date Pain in gums January 06, 2025 8:04 am Chief Complaint Admit Date FOOT RX HERE December 01, 2024 1 2:00pm CONCERN FOR INFECTED GUMS January 06 8:04am THROAT PAIN January 09, 2025 8:4 2am WOUND January 10, 2025 11: 00am PROLIA February 03, 2025 8:36 am Chief Complaint Admit Date PROLIA February 03, 2025 8:36 am Additional Source Comments INFORMATION SOURCE (unrecogn ized section and content) DATE CREATED AUTHOR 02/17/2019 [facility] DATE CREATED AUTHOR AUTHOR'S ORGANIZ ATION 06/11/2025 [facility] Goals (unrecognized section and content) Goals may be documented in a n alternate sectionGoals may be documented in an alternate sectionGoals may be documented in an alternate sectionGoals may be documented in an alternate sectionGoals may be documented in an alternate sectionGoals may be documented in an alternate sectionGoals may be documented in an alternate sectionGoals may be documented in an alternate section Care Teams (unrecognized sec tion and content) Team Status: Active Member Role Status Dates Dr. David Arteaga MD Family Provider Active Dr. David Arteaga MD Primary Care Provider Activ e Team Status: Inactive Member Role Status Dates Dr. David Arteaga MD Primary Care Provider, Attending Provider, Referring Provider Active Team Status: Active Member Role Status Dates Dr. David Arteaga MD Primary Care Provider, Attending Provider, Referring Provider Active Team Status: Active Member Role Status Dates Dr. David Arteaga MD Primary Care Provider, Atte nding Provider Active Team Status: Inactive Member Role Status Dates Dr. David Arteaga MD Primary Care Provider, Atte nding Provider Active Team Status: Active Member Role Status Dates Dr. Deisy Arteaga MD Primary Care Provider Acti ve Team Status: Active Member Role Status Dates Dr. Deisy Arteaga MD Primary Care Provider Acti ve Start: December 01, 2024 Dr. Kash Sanford DPM Attending Provider Active Start: December 01, 2024 Dr. Kash Sanford DPM Referring Provider Active Start: December 01, 2024 Team Status: Inactive Member Role Status Dates Dr. Deisy Arteaga MD Primary Care Provider Acti ve Start: January 06, 2025 End: January 06, 2025 Dr. Deisy Arteaga MD Referring Provider Active Start: January 06, 2025 End: January 06, 2025 Tru Guidry DRY PAN FEEDER, DRY PAN FEEDER-C Attending Provider Active S tart: January 06, 2025 End: January 06, 2025 Team Status: Inactive Member Role Status Dates Dr. Deisy Arteaga MD Primary Care Provider Acti ve Start: January 09, 2025 End: January 09, 2025 Dr. Deisy Arteaga MD Referring Provider Active Start: January 09, 2025 End: January 09, 2025 Blas Lynch PA, PA Attending Provider Active Start: January 09, 2025 End: January 09, 2025 Team Status: Inactive Member Role Status Dates Dr. Deisy Arteaga MD Primary Care Provider Acti ve Start: January 10, 2025 End: January 10, 2025 Dr. Chaka Montenegro MD Emergency Provider Active Start: January 10, 2025 End: January 10, 2025 Team Status: Inactive Member Role Status Dates Dr. Deisy Arteaga MD Primary Care Provider Acti ve Start: January 10, 2025 End: January 10, 2025 Dr. Chaka Montenegro MD Attending Provider Active Start: January 10, 2025 End: January 10, 2025 Dr. Chaka Montenegro MD Emergency Provider Active Start: January 10, 2025 End: January 10, 2025 Team Status: Inactive Member Role Status Dates Dr. Deisy Arteaga MD Primary Care Provider Acti ve Start: February 03, 2025 End: February 03, 2025 Dr. Deisy Arteaga MD Attending Provider Active Start: February 03, 2025 End: February 03, 2025 Dr. Deisy Arteaga MD Referring Provider Active Start: February 03, 2025 End: February 03, 2025 Team Status: Active Member Role/Relationship Status Dates Dr. Deisy Arteaga MD Primary Care Provider Acti ve Team Status: Inactive Member Role/Relationship Status Dates Dr. Deisy Arteaga MD Primary Care Provider Acti ve Start: February 03, 2025 End: February 03, 2025 Dr. Deisy Arteaga MD Attending Provider Active Start: February 03, 2025 End: February 03, 2025 Dr. Deisy Arteaga MD Referring Provider Active Start: February 03, 2025 End: February 03, 2025 FOR RECORDS PERTAINING TO PATIENTS WHO ARE OR HAVE BEEN ENROLLED IN A CHEMICAL DEPENDENCY/SUBSTANCEABUSE PROGRAM, SOME INFORMATION MAY BE OMITTED. This clinical summary was aggregated from multiple sources. Caution should be exercised in using it in the provision of clinical care. This summary normalizes information from multiple sources, and as a consequence, information in this document may materially change the coding, format and clinical context of patient data. In addition, data may be omitted in some cases. CLINICAL DECISIONS SHOULD BE BASED ON THE PRIMARY CLINICAL RECORDS. [facility] [employer] provides no warranty or guarantee of the accuracy or completeness of information in this document.
--- NOTE | 2025-06-17 08:08 | CT_ITS ---
PROCEDURE: LOW DOSE CT LUNG SCREENING 06/17/2025 REASON FOR EXAM: >25 YEAR PACK HX, CURRENT SMOKER History of COPD. TECHNIQUE: LOW DOSE CT LUNG SCREENING Coronal and Sagittal reconstruction series were provided. One or more dose reduction techniques were used (e.g., Automated exposure control, adjustment of the mA and/or kV according to patient size, use of iterative reconstruction technique). REFERENCE LINK: [employer] Lung-RADS RADIATION DOSE SUMMARY: CTDlvol: 2.37 mGy DLP: 86.10 mGycm COMPARISON: Prior study dated June 16, 2024. FINDINGS: PULMONARY NODULES: (Only nodules >3mm are reported) Nodules described below are on series 1 unless otherwise specified. Pulmonary Nodules: No suspicious nodules are seen. Hardware:None Lymph Nodes:No suspicious lymph nodes. Heart and Vasculature:The heart is nonenlarged.Atherosclerotic calcifications of the thoracic aorta. Thoracic aorta and pulmonary arteries have normal contours; noncontrast technique limits evaluation. Coronary Artery Calcifications: Present Lungs and Airways: Moderate degree of hyperinflation. Emphysematous changes seen more pronounced in the upper lobes with the centrilobular emphysematous changes. Mild scarring in the posterior aspect of the right upper lobe as well as in the medial aspect of the left and right upper lobes. There has been improvement in the medial aspect of the right middle lobe with better aeration. Focal bronchus is seen. Pleura:Unremarkable Upper Abdomen:Unremarkable Bones:Degenerative changes of the thoracic spine. CT/Low Dose CT Lung Screening IMPRESSION: Stable examination. No suspicious nodules are seen. Coronary artery calcification (CAC) is is present Lung-RADS Category: 2 BENIGN (BASED ON IMAGING FEATURES OR INDOLENT BEHAVIOR). RECOMMEND 12-MONTH SCREENING LDCT. Other Significant Findings: Reading Location: [facility]
== END | disposition home or self-care (01) ==
PROVIDERS: PCP Family Medicine; Referring Provider Family Medicine; Visit Provider Family Medicine
DX: F17.210 Nicotine dependence, cigarettes, uncomplicated (principal)
CPT/HCPCS: 71271

== ENCOUNTER → 2025-06-23 | Outpatient (CLI) | payer MEDICARE, SELFPAY ==
--- NOTE | 2025-06-23 09:42 | BI_ITS ---
EXAM: SCRN MAMM (CAD)W/EHSAN BILAT DATE: 06/23/2025 CLINICAL HISTORY: F, Age 70 y/o , SCREENING TECHNIQUE: SCRN MAMM (CAD)W/EHSAN BILAT COMPARISON: Prior exam(s) dated 06/22/2024, 06/19/2023. FINDINGS: TISSUE DENSITY: There are scattered areas of fibroglandular density. Bilateral Breast Mammographic Findings: No significant masses, calcifications or other abnormalities are identified. BI/SCRN MAMM (CAD)W/EHSAN BILAT IMPRESSION: There is no mammographic evidence of malignancy. OVERALL FINAL ASSESSMENT BI-RADS 1: NEGATIVE. RECOMMENDATION: Routine annual follow-up in 1 Year A letter with findings and recommendations will be mailed to the patient. Reading Location: [id number]
== END | disposition home or self-care (01) ==
LOC: OPBI 09:41
PROVIDERS: PCP Family Medicine; Referring Provider Family Medicine; Visit Provider Family Medicine
DX: Z12.31 Encounter for screening mammogram for malignant neoplasm of breast (principal)
CPT/HCPCS: 77063; 77067

== ENCOUNTER → 2025-08-11 | Outpatient (CLI) | payer MEDICARE, SELFPAY ==
--- NOTE | 2025-08-11 10:33 | STRESSREP ---
Stress Test Report Date: 08/11/2025 Procedure: Pharmacologic stress nuclear imaging study Indications: Coronary artery disease Consent: Per the patient Procedure: The patient was initially scheduled for exercise stress Myoview. However she could not walk more than 1 minute on the treadmill because of severe shortness of breath. The test was therefore changed to pharmacological stress. The patient underwent pharmacologic (Regadenoson 0.4mg ) evaluation with a peak heart rate of 107 beats per minute (70%predicted maximal heart rate) and a peak blood pressure of 122/62 mmHg. The baseline ECG demonstrated sinus rhythm. The peak pharmacologic ECG did not show any ischemic changes. There were no cardiac dysrhythmias pretest, during pharmacologic infusion, or recovery. There was no complaint of chest discomfort during pharmacologic infusion or recovery. The patient was injected with 11.8 millicuries of technetium 99m Cardiolite and subsequently rest SPECT Cardiolite nuclear imaging was obtained in the horizontal long, vertical long, and short axis views. The patient underwent pharmacologic (Regadenoson) evaluation. The patient was injected with 33.5 millicuries of technetium 99m Cardiolite and subsequently stress SPECT Cardiolite nuclear imaging was obtained in the horizontal long, vertical long, and short axis views. A gated Cardiolite study at peak stress was obtained. The examination was stopped secondary to completion of protocol. Rest and stress SPECT Cardiolite nuclear imaging status post realignment, normalization, and attenuation correction demonstrate no fixed or reversible perfusion defects. There is end systolic thickening and brightening. The gated Cardiolite study demonstrates myocardial thickening and inward wall motion. The reported LVEF is 92%. Impression: 1. Pharmacologic (Regadenoson) evaluation 2. Peak pharmacologic ECG with no ischemic changes. 3. There were no cardiac dysrhythmias pretest, during pharmacologic infusion, or recovery. 5. Rest and stress SPECT Cardiolite nuclear imaging demonstrate relative uniform tracer uptake and myocardial perfusion appearing within normal limits. 6. The gated Cardiolite study reports an LVEF of 92%. This note was generated with [employer]ation software. It may contain incorrect words, spelling, and punctuation that were not noted in checking the note before signing.
== END | disposition home or self-care (01) ==
PROVIDERS: PCP Family Medicine; Referring Provider Family Medicine; Visit Provider Family Medicine
DX: I25.10 Atherosclerotic heart disease of native coronary artery without angina pectoris (principal)
CPT/HCPCS: 78452; 93017; A9500; A4216; J2785

== ENCOUNTER → 2025-08-14 | Outpatient (CLI) | payer MEDICARE, SELFPAY ==
--- NOTE | 2025-08-14 09:45 | MRI_ITS ---
PROCEDURE: ORBIT FACE NECK W/WO CONTRAST 08/14/2025 REASON FOR EXAM: R MANBILE, PAIN, SWELLING. ABSCESS V OSTEONECROSIS. ON PROLIA on bisphosphonates. TECHNIQUE: Procedure Code: [id number] Modality: MR Procedure: ORBIT FACE NECK W/WO CONTRAST Multiplanar and multisequence images were obtained. CONTRAST: Anju scan VOLUME: 12 mL COMPARISON: No comparable prior exam. FINDINGS: Intracranial structures imaged posterior fossa and cerebellar tentorial brain negative. Nasopharynx: Negative. Oral cavity and oropharynx: Abnormal appearance to the mandible near the ramus of the mandible and extending along the anterior mandible more so on the left extending on the left 2 near the angle of the mandible and to a lesser extent near the angle of the mandible on the right. This is heterogeneously dark on T1 weighted signal with some enhancement. On the right the area of the length of abnormal mandible measures least 2.5 cm in the left 3.5 cm. There is a presumed fistulous tract arising from the right anterior mandible to the submandibular region that skins through the skin on the right. Only slight inflammation of the left mandibular soft tissues. Patient is edentulous Hypopharynx and larynx: Larynx negative. Parapharyngeal and retropharyngeal spaces: Adjacent structures negative. Salivary glands: Imaged parotid and submandibular glands negative Lymph nodes: No cervical adenopathy. Thyroid: Thyroid gland negative. Vasculature: Imaged vasculature negative. Orbits: Globes and extra-ocular muscles negative. Paranasal sinuses and mastoids: Paranasal sinuses negative. Bones: Cervical spine and remainder of the imaged facial bones excluding in the mandible are negative. MRI/Orbit Face Neck W/WO Contrast IMPRESSION: Abnormal appearance to the mandible slightly worse on the left in the right pat ient is edentulous. 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 There is a fistulous draining tract arising from the right anterior mandible. This fistulous tract extends inferiorly. Therefore suspect secondary infection. Reading Location: [place] [id number]
== END | disposition home or self-care (01) ==
PROVIDERS: PCP Family Medicine; Referring Provider Family Medicine; Visit Provider Family Medicine
DX: R68.84 Jaw pain (principal)
CPT/HCPCS: 70543; A9575

== ENCOUNTER → 2025-08-23 | Outpatient (CLI) | payer MEDICARE, SELFPAY ==
[2025-08-23 12:45] LABS: Hematocrit 45.3 % (37-47); Hemoglobin 15.6 g/dL (12.0-15.0); Immature Granulocytes Count 0.020 X10^3/uL (0.0-0.0); Mean Corp Hgb Conc 34.4 g/dL (32-36); Mean Corpuscular Volume 85.6 fL (81-99); Mean Platelet Vol. 9.9 fl (6.2-12.0); NRBC Flagged by Analyzer 0 % (0-5); Platelet Count 287 K/mm3 (150-450); RBC Distribution Width CV 13.6 % (11.6-14.6); RBC Distribution Width SD 42.5 fl (35.1-43.9); Red Blood Count 5.29 M/mm3 (4.2-5.4); White Blood Count 6.5 K/mm3 (4.4-11.0)
[2025-08-23 13:24] LABS: Anion Gap 11 (5-15); BUN 20 mg/dL (4-19); BUN/Creat Ratio 27.5 RATIO (10-20); Calcium,Total 9.6 mg/dL (7.6-11.0); Carbon Dioxide 24.8 mmol/L (21.0-32.0); Chloride 102 mmol/L (98-108); Glucose 105 mg/dL (70-99); Potassium 4.0 mmol/L (3.3-5.1); Vitamin D,25 Hydroxy 32.6 ng/mL (30-100)
[2025-08-23 13:36] LABS: CRP < 3.00 mg/L (0.0-3.0)
== END | disposition home or self-care (01) ==
LOC: MFPLAB 10:26
PROVIDERS: PCP Family Medicine; Visit Provider Family Medicine
DX: M87.9 Osteonecrosis, unspecified (principal); M85.80 Other specified disorders of bone density and structure, unspecified site
CPT/HCPCS: 36415; 80048; 82306; 84443; 85025; 85652; 86140

== ENCOUNTER → 2025-09-29 | Outpatient (CLI) | payer MEDICARE, SELFPAY ==
--- NOTE | 2025-09-29 18:18 | CT_ITS ---
PROCEDURE: SINUS/FACIAL BONE 09/29/2025 REASON FOR EXAM: OSTEONECROSIS DUE TO DRUGS TECHNIQUE: Procedure Code: CTSI Modality: CT Procedure: SINUS/FACIAL BONE Coronal and Sagittal reconstruction series were provided. One or more dose reduction techniques were used (e.g., Automated exposure control, adjustment of the mA and/or kV according to patient size, use of iterative reconstruction technique). RADIATION DOSE SUMMARY: CTDlvol: 29.4 mGy DLP: 628 mGycm COMPARISON: MRI face 08/14/2025 FINDINGS: Patient is edentulous. There is patchy osteopenia and linear lucency along the midline of the mandibular body, in the region of abnormal signal on recent MRI. No significant soft tissue stranding, and no drainable fluid collection. Carotid artery atherosclerosis. Visualized neck soft tissues are otherwise unremarkable. Visualized portions of the brain are unremarkable for age. CT/Sinus/Facial Bone IMPRESSION: 1. Osteopenia at the body of the mandible, corresponding to signal abnormality on recent MRI. Findings may again represent osteonecrosis and/or osteomyelitis. Metastasis or malignancy also remain possi ble, correlate with patient history. 2. Additionally, there are linear lucencies which raises concern for pathologi c fracture. 3. No evidence of abscess on this limited noncontrast exam. Reading Location: [facility]
--- OUTSIDE RECORDS SUMMARY | 2025-09-29 18:18 | XMS RPT_ITS | CCD ---
Author Organization [facility] Care Team Providers Care Malt [facility] Supervisor Name Role Phone DEISY ARTEAGA Referring Unavailabl e Chandler MARION, Dr. Guillen Primary Care Provider Juvenal GOYAL, Dr. Hewitt Attending Provider Juvenal GOYAL, Dr. Hewitt Referring Provider Chandler MARION, Dr. Guillen Referring Provider Chao LEMUS-C, Tru Mcallister Attending Provider Blas Anderson Attending Provider [phone] Lan MARION, Dr. Null Emergency Provider Lan MARION, Dr. Null Attending Provider Chandler MARION, Dr. Guillen Attending Provider Chandler MARION, Dr. Guillen Primary Care Provider Chandler MARION, Dr. Guillen Referring Provider Chandler MARION, Dr. Guillen Primary Care Provider Chandler MARION, Dr. Guillen Attending Provider [phone] Chandler MARION, Dr. Guillen Referring Provider [phone] Chandler MARION, Dr. Guillen Primary Care Physicia n Dr. Deisy Arteaga MD Attending Physician Vale MARION, Dr. Santos Attending Physician Deisy Arteaga Attending Unavailable Deisy Arteaga Referring Unavailable Deisy Arteaga Primary Care Unavailable Deisy Arteaga Attending Unavailable Ranney, Christopher Referring Unavailable Ranney, Christopher Primary Care Unavailable Tom Collazo Attending Unavailable Ranney, Christopher Primary Care Unavailable Ranney, Christopher Referring Unavailable Ranney, Christopher Primary Care Unavailable Yakelin Rosas Attending Unavailable Ranney, Guruer Consulting Unavailable Ranney, Guruer Attending Unavailable Ranney, Christopher Referring Unavailable Ranney, Christopher Primary Care Unavailable Ranney, Christabnerer Attending Unavailable Ranney, Christopher Primary Care Unavailable Ranney, Christopher Referring Unavailable Ranney, Christopher Attending Unavailable Ranney, Christopher Primary Care Unavailable Ranney, Christopher Referring Unavailable Ranney, Christopher Attending Unavailable Ranney, Christopher Referring Unavailable Ranney, Christopher Primary Care Unavailable Ranney, Christopher Primary Care Unavailable Stalinney, Guruer Attending Unavailable Blas Anderson Attending Unavailable Ranney, Christopher Referring Unavailable Ranney, Christopher Primary Care Unavailable Tru Guidry NP Attending Unavailable Ranney, Christopher Referring Unavailable Ranney, [facility] [place] Unavailable Chaka Montenegro Attending Unavailable Ranney, [facility] Unavailable Kash Sanford Attending Unavailable Kash Sanford Referring Unavailable Ranney, [facility] [place] Primary Care Unavailable Ranney, Deisy Attending Unavailable Ranney, Christopher Referring Unavailable Ranney, [facility] [place] Primary Care Unavailable Medications Current Medications Medication Drug Class(es) Dates Sig (Normalized) Sig (Original) acetaminophen 325 mg / HYDROcodone bitartrate 5 mg oral tablet (6 sources) Opioid Agonist Start: 01-10-2025 take 1 tablet by mouth every six hours as needed for pain [id number] 200 actuat albuterol 0.09 mg/actuat metered dose inhaler (6 sources) beta2-Adrenergic Agonist Start: 06-14-2024 atorvastatin 20 mg oral tablet (6 sources) HMG-CoA Reductase Inhibitor Start: 06-14-2024 take 1 tablet by mouth once daily 1 ml denosumab 60 mg/ml prefilled syringe (6 sources) RANK Ligand Inhibitor Start: 01-09-2025 sulfamethoxazole 800 mg / trimethoprim 160 mg oral tablet (6 sources) Dihydrofolate Reductase Inhibitor Antibacterial, Sulfonamide Antimicrobial Start: 01-10-2025 Completed/Discontinued Medications Medication Drug Class(es) Dates Sig (Normalized) Sig (Original) alendronic acid 70 mg oral tablet (6 sources) Bisphosphonate Start: 06-14-2024 End: 01-09-2025 Alendronate 70 mg tablet Discontinued 70 mg PO SA June 14, 2024 12:00am January 09, 2025 8:48am amoxicillin 500 mg oral tablet (6 sources) Penicillin-class Antibacterial Start: 01-06-2025 End: 01-09-2025 take 1 tablet by mouth three times daily Amoxicillin 500 mg tablet Discontinued 500 mg PO THREE TIMES A DAY 30 10 0 January 06, 2025 1:00am January 15, 2025 12:00am January 09, 2025 8:57am amoxicillin 875 mg / clavulanate 125 mg oral tablet (6 sources) Penicillin-class Antibacterial Start: 01-09-2025 End: 01-10-2025 Amoxicillin-Pot Clavulanate 875-125 mg tablet Discontinued 1 {tbl} PO TWICE A DAY 20 January 09, 2025 12:00am January 10, 2025 3:49pm gabapentin 300 mg oral capsule (6 sources) Anti-epileptic Agent Start: 06-14-2024 End: 01-09-2025 take 1 capsule by mouth at bedtime Gabapentin 300 mg capsule Discontinued 300 mg PO AT BEDTIME June 14, 2024 12:00am January 09, 2025 8:49am 12 hr guaiFENesin 1200 mg extended release oral tablet (6 sources) Start: 06-14-2024 End: 01-06-2025 take 1 tablet by mouth twice daily, then take 1 tablet by mouth every twelve hours Guaifenesin (Mucinex) 1,200 mg tablet extended release 12hr Discontinued 1200 mg PO TWICE A DAY 20 0 June 14, 2024 12:00am January 06, 2025 9:03am meloxicam 7.5 mg oral tablet (6 sources) Nonsteroidal Anti-inflammatory Drug Start: 06-14-2024 End: 01-09-2025 take 1 tablet by mouth once daily Meloxicam 7.5 mg tablet Discontinued 7.5 mg PO DAILY June 14, 2024 12:00am January 09, 2025 8:49am nortriptyline 50 mg oral capsule (6 sources) Tricyclic Antidepressant Start: 06-14-2024 End: 01-09-2025 take 1 capsule by mouth at bedtime Nortriptyline 50 mg capsule Discontinued 50 mg PO AT BEDTIME June 14, 2024 12:00am January 09, 2025 8:49am predniSONE 20 mg oral tablet (6 sources) Start: 06-14-2024 End: 01-06-2025 take 3 tablets by mouth once daily Prednisone 20 mg tablet Discontinued 60 mg PO DAILY 15 0 June 14, 2024 12:00am January 06, 2025 9:03am Problems Active Problems Problem Classification Problem Date Documented Date Episodic/Chronic Chronic obstructive pulmonary disease and bronchiectasis (6 sources) Acute exacerbation of chronic obstructive airways disease; Translations: [Chronic obstructive pulmonary disease with (acute) exacerbation] 06-22-2024 Chronic Conditions associated with dizziness or vertigo (6 sources) Dizziness; Translations: [Dizziness and giddiness] 06-22-2024 Episodic Coronary atherosclerosis and other heart disease (2 sources) Atherosclerotic heart disease of [place] coronary artery without angina pectoris; Translations: [Atherosclerotic heart disease of [place] coronary artery without angina pectoris] Onset: 08-31-2025 Chronic Disorders of lipid metabolism (7 sources) Hypercholesterolemia; Translations: [Pure hypercholesterolemia, unspecified] Onset: 07-13-2025 06-14-2024 Chronic Disorders of teeth and jaw (10 sources) Sore gums; Translations: [Other specified disorders of gingiva and edentulous alveolar ridge] Onset: 01-06-2025 01-06-2025 Episodic Fluid and electrolyte disorders (18 sources) Hyponatremia; Translations: [Hypo-osmolality and hyponatremia] 06-14-2024 Episodic Osteoporosis (6 sources) Osteoporosis; Translations: [Age-related osteoporosis without current pathological fracture] 06-14-2024 Chronic Other bone disease and musculoskeletal deformities (1 source) Osteonecrosis, unspecified; Translations: [Osteonecrosis, unspecified] Onset: 08-28-2025 Chronic Other circulatory disease (6 sources) Orthostatic hypotension; Translations: [Orthostatic hypotension] 06-14-2024 Episodic Other screening for suspected conditions (not mental disorders or infectious disease) (1 source) Encounter for screening mammogram for malignant neoplasm of breast; Translations: [Encounter for screening mammogram for malignant neoplasm of breast] Onset: 06-30-2025 Episodic Skin and subcutaneous tissue infections (6 sources) Abscess of submental space ; Translations: [Cutaneous abscess of face] 01-10-2025 Episodic Substance-related disorders (1 source) Nicotine dependence, cigarettes, uncomplicated; Translations: [Nicotine dependence, cigarettes, uncomplicated] Onset: 06-22-2025 Chronic Past or Other Problems Problem Classification Problem Date Documented Da te Episodic/Chronic Other aftercare (1 source) Encounter for change or removal of nonsurgical wound dressing; Translations: [Encounter for change or removal of nonsurgical wound dressing] Onset: 01-19-2025 Episodic Other bone disease and musculoskeletal deformities (1 source) Other specified disorders of bone density and structure, unspecified site; Translations: [Other specified disorders of bone density and structure, unspecified site] Onset: 02-07-2025 Episodic Other connective tissue disease (1 source) Metatarsalgia, right foot; Translations: [Metatarsalgia, right foot] Onset: 06-01-2025 Episodic Other connective tissue disease (1 source) Other enthesopathy of right foot and ankle; Translations: [Other enthesopathy of right foot and ankle] Onset: 06-01-2025 Episodic Results Test Name Value Interpretation Reference Range Facility Basic Metabolic Profile (BMP )on 08-23-2025 BUN/CRE 27.5 RATIO High 08-21 [facility] Comment on above: Order Comment: Order Date: 08/22/25Order Info: 0667-1 - BMPOrder Info: [id number] - CRPOrder Info: 3016-3 - TSH Performed By: #### L 101.9900, L501.6710, L500.2500, L501.9520, L100.0100 ####[facility] [address] [place], [place], [address] Calcium [Mass/Vol] 9.6 mg/dL Normal 7.6-11.0 [facility] Comment on above: Order Comment: Order Date: 08/22/25Order Info: 0667-1 - BMPOrder Info: [id number] - CRPOrder Info: [id number] - TSH Performed By: #### L 101.9900, L501.6710, L500.2500, L501.9520, L100.0100 ####[facility] [address] [facility] [place], [place], [id number] Chloride [Moles/Vol] 102 mmol/L Normal 98-108 [facility] Comment on above: Order Comment: Order Date: 08/22/25Order Info: 666-11 - BMPOrder Info: - CRPOrder Info: 3 - TSH Performed By: #### L 101.9900, L501.6710, L500.2500, L501.9520, L100.0100 ####[facility] [address] [place], [address] CO2 [Moles/Vol] 24.8 mmol/L Normal 21.0-32.0 [facility] Comment on above: Order Comment: Order Date: 08/22/25Order Info: 666-11 - BMPOrder Info: - CRPOrder Info: 3 - TSH Performed By: #### L 101.9900, L501.6710, L500.2500, L501.9520, L100.0100 ####[facility] [address] [place], [address] Creatinine [Mass/Vol] 0.71 mg/dL Normal 0.70-1.20 [facility] Comment on above: Order Comment: Order Date: 08/22/25Order Info: 666-11 - BMPOrder Info: - CRPOrder Info: [id number] - TSH Performed By: #### L 101.9900, L501.6710, L500.2500, L501.9520, L100.0100 ####[facility] [address] [place], [address] GAP 11 Normal 5-15 [facility] Comment on above: Order Comment: Order Date: 08/22/25Order Info: 666-11 - BMPOrder Info: [id number] - CRPOrder Info: 3016-01 - TSH Performed By: #### L 101.9900, L501.6710, L500.2500, L501.9520, L100.0100 ####[facility] [address] [place], [address] GFR/1.73 sq M.predicted among non-blacks MDRD (S/P/Bld) [Vol rate/Area] 91 mL/min/{1.73_m2} Normal >60 [facility] Comment on above: Order Comment: Order Date: 08/22/25Order Info: 666-11 - BMPOrder Info: [id number] - CRPOrder Info: 3 - TSH Result Comment: mL/m in/1.73m2 CKD-EPI Creatinine Equation (2020) Performed By: #### L 101.9900, L501.6710, L500.2500, L501.9520, L100.0100 ####[facility] [address] [facility] [place], [address] Glucose [Mass/Vol] 105 mg/dL High 70-99 [facility] Comment on above: Order Comment: Order Date: 08/22/25Order Info: 666-11 - BMPOrder Info: - CRPOrder Info: 3016-01 - TSH Performed By: #### L 101.9900, L501.6710, L500.2500, L501.9520, L100.0100 ####[facility] [address] [facility] [place], [address] Potassium [Moles/Vol] 4.0 mmol/L Normal 3.3-5.1 [facility] Comment on above: Order Comment: Order Date: 08/22/25Order Info: 666-11 - BMPOrder Info: [id number] - CRPOrder Info: 3 - TSH Performed By: #### L 101.9900, L501.6710, L500.2500, L501.9520, L100.0100 ####[facility] [address] [facility] [place], [address] Sodium [Moles/Vol] 138 mmol/L Normal 133-145 [facility] Comment on above: Order Comment: Order Date: 08/22/25Order Info: 666-11 - BMPOrder Info: - CRPOrder Info: 3016-3 - TSH Performed By: #### L 101.9900, L501.6710, L500.2500, L501.9520, L100.0100 ####[facility] [address] [place], [address] Urea nitrogen [Mass/Vol] 20 mg/dL High 4-19 [facility] Comment on above: Order Comment: Order Date: 08/22/25Order Info: 0667-1 - BMPOrder Info: [id number] - CRPOrder Info: 3 - TSH Performed By: #### L 101.9900, L501.6710, L500.2500, L501.9520, L100.0100 ####[facility] [address] [place], [address] CBC W/Diff, Automatedon 10-12 04-2024 Absolute Lymph 1.77 X10 3/uL Normal 0.83-4.51 [facility] Comment on above: Order Comment: Order Date: 08/22/25 Order Info: 0184-1 - CBCD Order Info: [id number] - SED Performed By: #### L 101.9900, L501.6710, L500.2500, L501.9520, L100.0100 #### [facility] [address] [place], [address] Absolute Neut 4.0 X10 3/uL Normal 2.0-7.7 [facility] Comment on above: Order Comment: Order Date: 08/22/25 Order Info: 0184-1 - CBCD Order Info: [id number] - SED Performed By: #### L 101.9900, L501.6710, L500.2500, L501.9520, L100.0100 #### [facility] [address] [place], [address] Basophils/100 WBC (Bld) 1.7 % High 0-1 [facility] Comment on above: Order Comment: Order Date: 08/22/25 Order Info: 0184-1 - CBCD Order Info: [id number] - SED Performed By: #### L 101.9900, L501.6710, L500.2500, L501.9520, L100.0100 #### [facility] [address] [place], [address] Eosinophils/100 WBC (Bld) 1.2 % Normal 0-5 [facility] Comment on above: Order Comment: Order Date: 08/22/25 Order Info: 183-11 - CBCD Order Info: [id number] - SED Performed By: #### L 101.9900, L501.6710, L500.2500, L501.9520, L100.0100 #### [facility] [address] [place], [address] Erythrocyte distribution width (RBC) [Ratio] 13.6 % Normal 11.6-14.6 [facility] Comment on above: Order Comment: Order Date: 08/22/25 Order Info: [id number] - CBCD Order Info: [id number] - SED Performed By: #### L 101.9900, L501.6710, L500.2500, L501.9520, L100.0100 #### [facility] [address] [place], [address] Hematocrit (Bld) [Volume fraction] 45.3 % Normal 37-47 [facility] Comment on above: Order Comment: Order Date: 08/22/25 Order Info: [id number] - CBCD Order Info: [id number] - SED Performed By: #### L 101.9900, L501.6710, L500.2500, L501.9520, L100.0100 #### [facility] [address] [place], [address] Hemoglobin (Bld) [Mass/Vol] 15.6 g/dL High 12.0-15.0 [facility] Comment on above: Order Comment: Order Date: 08/22/25 Order Info: [id number] - CBCD Order Info: [id number] - SED Performed By: #### L 101.9900, L501.6710, L500.2500, L501.9520, L100.0100 #### [facility] [address] [place], [address] IG% 0.300 Normal 0.0-0.9 [facility] Comment on above: Order Comment: Order Date: 08/22/25 Order Info: 0184- - CBCD Order Info: [id number] - SED Result Comment: IG% - Immature Granulocytes (promyelocytes, myelocytes and metamyelocytes) > 1% indicates that a LEFT SHIFT is Present. Performed By: #### L 101.9900, L501.6710, L500.2500, L501.9520, L100.0100 #### [facility] [address] [place], [address] Lymphocytes/100 WBC (Bld) 27.1 % Normal 19-41 [facility] Comment on above: Order Comment: Order Date: 08/22/25 Order Info: 0184- - CBCD Order Info: [id number] - SED Performed By: #### L 101.9900, L501.6710, L500.2500, L501.9520, L100.0100 #### [facility] [address] [place], [address] MCH (RBC) [Entitic mass] 29.5 pg Normal 27.0-32.0 [facility] Comment on above: Order Comment: Order Date: 08/22/25 Order Info: 0184- - CBCD Order Info: [id number] - SED Performed By: #### L 101.9900, L501.6710, L500.2500, L501.9520, L100.0100 #### [facility] [address] [place], [address] MCHC (RBC) [Mass/Vol] 34.4 g/dL Normal 32-36 [facility] Comment on above: Order Comment: Order Date: 08/22/25 Order Info: 0184- - CBCD Order Info: [id number] - SED Performed By: #### L 101.9900, L501.6710, L500.2500, L501.9520, L100.0100 #### [facility] [address] [place], [address] MCV (RBC) [Entitic vol] 85.6 fL Normal 81-99 [facility] Comment on above: Order Comment: Order Date: 08/22/25 Order Info: [id number] - CBCD Order Info: [id number] - SED Performed By: #### L 101.9900, L501.6710, L500.2500, L501.9520, L100.0100 #### [facility] [address] [place], [address] Monocytes/100 WBC (Bld) 8.1 % Normal 0-10 [facility] Comment on above: Order Comment: Order Date: 08/22/25 Order Info: 018- - CBCD Order Info: [id number] - SED Performed By: #### L 101.9900, L501.6710, L500.2500, L501.9520, L100.0100 #### [facility] [address] [place], [address] Neutrophils/100 WBC (Bld) 61.6 % Normal 47-70 [facility] Comment on above: Order Comment: Order Date: 08/22/25 Order Info: [id number] - CBCD Order Info: [id number] - SED Performed By: #### L 101.9900, L501.6710, L500.2500, L501.9520, L100.0100 #### [facility] [address] [place], [address] Nucleated RBC (Bld) [#/Vol] 0 10*3/uL Normal 0-5 [facility] Comment on above: Order Comment: Order Date: 08/22/25 Order Info: 0184- - CBCD Order Info: [id number] - SED Performed By: #### L 101.9900, L501.6710, L500.2500, L501.9520, L100.0100 #### [facility] [address] [place], [address] Platelet mean volume (Bld) [Entitic vol] 9.9 fL Normal 6.2-12.0 [facility] Comment on above: Order Comment: Order Date: 08/22/25 Order Info: 0184- - CBCD Order Info: [id number] - SED Performed By: #### L 101.9900, L501.6710, L500.2500, L501.9520, L100.0100 #### [facility] [address] [place], [address] Platelets (Bld) [#/Vol] 287 10*3/uL Normal 150-450 [facility] Comment on above: Order Comment: Order Date: 08/22/25 Order Info: 0184- - CBCD Order Info: [id number] - SED Performed By: #### L 101.9900, L501.6710, L500.2500, L501.9520, L100.0100 #### [facility] [address] [place], [address] RBC (Bld) [#/Vol] 5.29 10*6/uL Normal 4.2-5.4 [facility] Comment on above: Order Comment: Order Date: 08/22/25 Order Info: 0184- - CBCD Order Info: [id number] - SED Performed By: #### L 101.9900, L501.6710, L500.2500, L501.9520, L100.0100 #### [facility] [address] [place], [address] RDW SD 42.5 fl Normal 35.1-43.9 [facility] Comment on above: Order Comment: Order Date: 08/22/25 Order Info: 0184-1 - CBCD Order Info: [id number] - SED Performed By: #### L 101.9900, L501.6710, L500.2500, L501.9520, L100.0100 #### [facility] [address] [place], [address] WBC (Bld) [#/Vol] 6.5 10*3/uL Normal 4.4-11.0 [facility] Comment on above: Order Comment: Order Date: 08/22/25 Order Info: 018-1 - CBCD Order Info: [id number] - SED Performed By: #### L 101.9900, L501.6710, L500.2500, L501.9520, L100.0100 #### [facility] [address] [place], [address] CRPon 08-23-2025 C-REACTIVE PROT < 3.00 Normal 0.0-3.0 [facility] Comment on above: Order Comment: Order Date: 08/22/25Order Info: 0667-1 - BMPOrder Info: [id number] - CRPOrder Info: 3016-3 - TSH Performed By: #### L 101.9900, L501.6710, L500.2500, L501.9520, L100.0100 ####[facility] [address] [place], [address] Erythrocyte Sed Rateon 08-23 SED RATE 15 mm/hr Normal 0-30 [facility] Comment on above: Order Comment: Order Date: 08/22/25 Order Info: 0184-1 - CBCD Order Info: [id number] - SED Performed By: #### L 101.9900, L501.6710, L500.2500, L501.9520, L100.0100 #### [facility] [address] [place], [address] Thyroid Stim Hormone (TSH)on 08-23-2025 TSH 1.230 uIU/mL Normal 0.300-4.200 [facility] Comment on above: Order Comment: Order Date: 08/22/25Order Info: 0667-1 - BMPOrder Info: [id number] - CRPOrder Info: 3016-3 - TSH Performed By: #### L 101.9900, L501.6710, L500.2500, L501.9520, L100.0100 ####[facility] [address] [place], [address] Vitamin D,25 Hydroxyon 08-23 Vitamin D 25-OH 32.6 ng/mL Normal 30-100 [facility] Comment on above: Order Comment: Order Date: 08/22/25 Order Info: 0667-1 - BMP Order Info: [id number] - CRP Order Info: 3016-3 - TSH Result Comment: Tessa min D Status Deficiency: <20 ng/mL (50nmol/L) Insufficiency: 20-30 ng/mL (50-75 nmol/L) Sufficiency: 30-100 ng/mL (75-250 nmol/L) Toxicity: >100 ng/mL (>250 nmol/L) Performed By: #### L 506.1001 #### [facility] [address] [place], [address] Orbit Face Neck W/WO Contras ton 08-14-2025 Orbit Face Neck W/WO Contrast [facility] [address] [place] [address] Orbit Face Neck W/WO Contrast MR#: [id number] Acct: [id number] Name: GABBY MORALES Rep #: [id number] : [id number] F 70 From: Kash Altamirano MD PCP: Dr. Deisy Arteaga MD Status: REG CLI Study: Orbit Face Neck W/WO Contrast Date of Exam: Exam# [id number] Ordering Dr: Deisy Arteaga PROCEDURE: ORBIT FACE NECK W/WO CONTRAST 08/14/2025 REASON FOR EXAM: R MANBILE, PAIN, SWELLING. ABSCESS V OSTEONECROSIS. ON PROLIA on bisphosphonates. TECHNIQUE: Procedure Code: MRIORBWW Modality: MR Procedure: ORBIT FACE NECK W/WO CONTRAST Multiplanar and multisequence images were obtained. CONTRAST: Anju scan VOLUME: 12 mL COMPARISON: No comparable prior exam. FINDINGS: Intracranial structures imaged posterior fossa and cerebellar tentorial brain negative. Nasopharynx: Negative. Oral cavity and oropharynx: Abnormal appearance to the mandible near the ramus of the mandible and extending along the anterior mandible more so on the left extending on the left 2 near the angle of the mandible and to a lesser extent near the angle of the mandible on the right. This is heterogeneously dark on T1 weighted signal with some enhancement. On the right the area of the length of abnormal mandible measures least 2.5 cm in the left 3.5 cm. There is a presumed fistulous tract arising from the right anterior mandible to the submandibular region that skins through the skin on the right. Only slight inflammation of the left mandibular soft tissues. Patient is edentulous Hypopharynx and larynx: Larynx negative. Parapharyngeal and retropharyngeal spaces: Adjacent structures negative. Salivary glands: Imaged parotid and submandibular glands negative Lymph nodes: No cervical adenopathy. Thyroid: Thyroid gland negative. Vasculature: Imaged vasculature negative. Orbits: Globes and extra-ocular muscles negative. Paranasal sinuses and mastoids: Paranasal sinuses negative. Bones: Cervical spine and remainder of the imaged facial bones excluding in the mandible are negative. MRI/Orbit Face Neck W/WO Contrast IMPRESSION: Abnormal appearance to the mandible slightly worse on the left in the right patient is edentulous. 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 There is a fistulous draining tract arising from the right anterior mandible. This fistulous tract extends inferiorly. Therefore suspect secondary infection. Reading Location: [place] [address] CC: Dr. Deisy Arteaga MD Client Success Manager: Signed Normal [facility] Stress Reporton 08-11-2025 Stress Report [facility] [address] [place] [address] MR#: [id number] Acct: [id number] Name: THURSDAYGABBY Rep #: [id number] : 1955 70 From: Yakelin Rosas MD Primary Care: Dr. Deisy Arteaga MD Status: REG CLI Referring Dr: Deisy Arteaga MD Sex: F C Stress Test Report Date: 08/11/2025 Procedure: Pharmacologic stress nuclear imaging study Indications: Coronary artery disease Consent: Per the patient Procedure: The patient was initially scheduled for exercise stress Myoview. However she could not walk more than 1 minute on the treadmill because of severe shortness of breath. The test was therefore changed to pharmacological stress. The patient underwent pharmacologic (Regadenoson 0.4mg ) evaluation with a peak heart rate of 107 beats per minute (70%predicted maximal heart rate) and a peak blood pressure of 122/62 mmHg. The baseline ECG demonstrated sinus rhythm. The peak pharmacologic ECG did not show any ischemic changes. There were no cardiac dysrhythmias pretest, during pharmacologic infusion, or recovery. There was no complaint of chest discomfort during pharmacologic infusion or recovery. The patient was injected with 11.8 millicuries of technetium 99m Cardiolite and subsequently rest SPECT Cardiolite nuclear imaging was obtained in the horizontal long, vertical long, and short axis views. The patient underwent pharmacologic (Regadenoson) evaluation. The patient was injected with 33.5 millicuries of technetium 99m Cardiolite and subsequently stress SPECT Cardiolite nuclear imaging was obtained in the horizontal long, vertical long, and short axis views. A gated Cardiolite study at peak stress was obtained. The examination was stopped secondary to completion of protocol. Rest and stress SPECT Cardiolite nuclear imaging status post realignment, normalization, and attenuation correction demonstrate no fixed or reversible perfusion defects. There is end systolic thickening and brightening. The gated Cardiolite study demonstrates myocardial thickening and inward wall motion. The reported LVEF is 92%. Impression: 1. Pharmacologic (Regadenoson) evaluation 2. Peak pharmacologic ECG with no ischemic changes. 3. There were no cardiac dysrhythmias pretest, during pharmacologic infusion, or recovery. 5. Rest and stress SPECT Cardiolite nuclear imaging demonstrate relative uniform tracer uptake and myocardial perfusion appearing within normal limits. 6. The gated Cardiolite study reports an LVEF of 92%. This note was generated with Explay Japanation software. It may contain incorrect words, spelling, and punctuation that were not noted in checking the note before signing. 08/11/25 1035 Date Yakelin Rosas MD CC: Dr. Deisy Arteaga MD Date Dictated: 08/11/251032 Date Transcribed: 08/11/251032 Client Success Manager: AR Signed [facility] Ankle min 3 Viewson 07-27-20 Ankle min 3 Views [facility] Imaging Services [address] [place] [address] Ankle min 3 Views MR#: [id number] Acct: [id number] Name: THURSDAYGABBY Rep #: [id number] : 1955 F 70 From: Judy Zelaya PCP: Dr. Deisy Arteaga MD Status: DEP AMB Study: Ankle min 3 Views Date of Exam: 07/27/25 Exam# [id number] Ordering Dr: Allan Fisher MD PROCEDURE: ANKLE MIN 3 VIEWS 07/27/2025 REASON FOR EXAM: RIGHT FOOT PAIN ACROSS TOP OF FOOT AND ANTERIOR ANKLE, NKI TECHNIQUE: Procedure Code: RADANK Modality: DX Procedure: ANKLE MIN 3 VIEWS Laterality: Right COMPARISON: None FINDINGS: Bones: Diffuse osteopenia of the osseous structures is noted. There are no fractures or dislocations. There is a small to moderate size spur off the plantar surface of the calcaneus. Joints: Ankle mortise is intact. Joints are well preserved. Soft tissues: No appreciable soft tissue swelling is noted. RAD/Ankle min 3 Views IMPRESSION: Diffuse osteopenia osseous structures of the right ankle. Small to moderate-sized spur off the plantar surface of the calcaneus. Reading Location: [id number] CC: Dr. Deisy Arteaga MD; Dr. Allan Fisher MD Client Success Manager: Signed [facility] Foot min 3 Viewson Foot min 3 Views [facility] Imaging Services [address] [place] [address] Foot min 3 Views MR#: [id number] Acct: [id number] Name: GABBY MORALES Rep #: [id number] : 1955 F 70 From: Judy Zelaya PCP: Dr. Deisy Arteaga MD Status: DEP AMB Study: Foot min 3 Views Date of Exam: 07/27/25 Exam# [id number] Ordering Dr: Allan Fisher MD PROCEDURE: FOOT MIN 3 VIEWS 07/27/2025 REASON FOR EXAM: RIGHT FOOT PAIN ACROSS TOP OF FOOT AND ANTERIOR ANKLE, NKI TECHNIQUE: Procedure Code: RADFO Modality: DX Procedure: FOOT MIN 3 VIEWS Laterality: Right COMPARISON: None FINDINGS: Bones: Diffuse osteopenia of the osseous structures is noted. Small to moderate-size spur seen off the plantar surface of the calcaneus. There are no fractures or dislocations. Joints: Joint spaces are well preserved. Soft tissues: No appreciable soft tissue swelling is noted. RAD/Foot min 3 Views IMPRESSION: Diffuse osteopenia of the osseous structures is noted. Small to moderate-size spur seen off the plantar surface of the calcaneus. Reading Location: [id number] CC: Dr. Deisy Arteaga MD; Dr. Allan Fisher MD Client Success Manager: Signed [facility] Coronary Angiography CTon Coronary Angiography [facility] Imaging Services [address] [place] [address] 07/20/25 1111 MR#: [id number] Acct: [id number] Name: GABBY MORALES Rep #: [id number] : 1955 70 From: Tom Collazo MD PCP: Dr. Deisy Arteaga MD Status:REG REF Y Location: CT Calcium Scoring Date of Study:: 07/13/25 Indications Indications: Family history and plaque noted on CT Coronary Calcium Scoring: High-resolution Computed Tomographic imaging of the chest was performed on [07/13/2025], with particular attention paid to the coronary arteries. Images from the examination were analyzed for the presence and extent of coronary artery calcification , using coronary calcium quantification software. The patient tolerated the procedure well and there were no complications. The results of the coronary calcification analysis are provided below. Findings Coronary Artery Left Main (LM): 158 Left Anterior Descending (LAD): 694 Left Circumflex (LCX): 0 Right Coronary Artery (RCA): 326 Total Agatston Score: 1,178 Percentile Ranking: Greater than 90th percentile Calcium Scoring Interpretation: Different methods to categorize the overall amount of coronary plaque. Overall amount CAC SIS Visual of coronary plaque P1 Mild -100 <2 1-2 vessels with mild amount of plaque P2 Moderate 101-300 3-4 1-2 vessels with moderate amount, 3 vessels with mild amount of plaque P3 Severe 301-999 5-7 3 vessels with moderate amount, 1 vessel with severe amount of plaque P4 Extensive >1000 >8 2-3 vessels with severe amount of plaque Calcium Score: Extensive: 2-3 vessels w/severe amount of plaque Conclusion: Extensive two-vessel plaque disease noted. 07/20/25 1112 Date [facility] applicable[facility] Date CC: Dr. Deisy Arteaga MD; Dr. Tom Collazo MD Signed [facility] Limited Chest CT Cardiac Onl yon 07-13-[address] Cardiac Only [facility] Imaging Services [address] [place] [id number] Cardiac Only MR#: [id number] Acct: [id number] Name: THURSDAYGABBY Rep #: [id number] : 1955 F 70 From: Carlos Malik PCP: Dr. Deisy Arteaga MD Status: REG REF Study: Limited Chest CT Cardiac Only Date of Exam: Exam# [id number] Ordering Dr: Deisy Arteaga PROCEDURE: LIMITED CHEST CT CARDIAC ONLY 07/13/2025 REASON FOR EXAM: PLAQUE NOTED ON LUNG SCREEN TECHNIQUE: Procedure Code: CTCCTACHLIM Modality: CT Procedure: LIMITED CHEST CT CARDIAC ONLY CT performed for coronary artery calcium scoring. One or more dose reduction techniques were used (e.g., Automated exposure control, adjustment of the mA and/or kV according to patient size, use of iterative reconstruction technique). RADIATION DOSE SUMMARY: CTDlvol: 12.19 mGy DLP: 195.04 mGycm COMPARISON: Chest CT 06/17/2025. CT/Limited Chest CT Cardiac Only IMPRESSION: Prominent emphysematous changes are again seen stable appearance the visualized portion an area right mid lung pleural-parenchymal scarring. Limited imaging of the lungs demonstrates no acute process. Flbv-[id number]-mwjqaffe aortic calcification is seen. No pleural effusion or pneumothorax is seen in visualized areas. No adenopathy is noted. The visualized upper abdomen demonstrates no significant abnormality. Reading Location: [place] [id number] CC: Dr. Deisy Arteaga MD Client Success Manager: Signed [facility] Breast imaging reportOrdered By: Roma Rosado on 06-23-2025 Study report [facility] Imaging Services [address] [place] [address] SCRN MAMM (CAD)W/EHSAN BILAT MR#: [id number] Acct: [id number] Name: THURSDAYGABBY Rep #: [id number] : 1955 F 70 From: Lenka Rosado MD PCP: Dr. Deisy Arteaga MD Status: REG CLI Study:SCRN MAMM (CAD)W/EHSAN BILAT Date of Exa m: 06/23/25 Exam# [id number] Ordering Dr: Kamila Arteaga MD EXAM: SCRN MAMM (CAD)W/EHSAN BILAT DATE: 06/23/2025 CLINICAL HISTORY: F, Age 70 y/o , SCREENING TECHNIQUE: SCRN MAMM (CAD)W/EHSAN BILAT COMPARISON: Prior exam(s) dated 06/22/2024, 06/19/2023. FINDINGS: TISSUE DENSITY: There are scattered areas of fibroglandular density. Bilateral Breast Mammographic Findings: No significant masses, calcifications or other abnormalities are identified. BI/SCRN MAMM (CAD)W/EHSAN BILAT IMPRESSION: There is no mammographic evidence of malignancy. OVERALL FINAL ASSESSMENT BI-RADS 1: NEGATIVE. RECOMMENDATION: Routine annual follow-up in 1 Year A letter with findings and recommendations will be mailed to the patient. Reading Location: [id number] CC: Dr. Deisy Arteaga MD ~ Client Success Manager: Signed [facility] SCRN MAMM (CAD)W/EHSAN BILATo n 06-23-2025 SCRN MAMM (CAD)W/EHSAN BILAT [facility] Imaging Services [address] [place] [address] SCRN MAMM (CAD)W/EHSAN BILAT MR#: [id number] Acct: [id number] Name: THURSDAYGABBY Rep #: [id number] : 1955 F 70 From: Roma Rosado MD PCP: Dr. Deisy Arteaga MD Status: REG [facility] Study: SCRN MAMM (CAD)W/EHSAN BILAT Date of Exam: 06/03 12/27 Exam# [id number] Ordering Dr: Deisy Arteaga EXAM: SCRN MAMM (CAD)W/EHSAN BILAT DATE: 06/23/2025 CLINICAL HISTORY: F, Age 70 y/o , SCREENING TECHNIQUE: SCRN MAMM (CAD)W/EHSAN BILAT COMPARISON: Prior exam(s) dated 06/22/2024, 06/19/2023. FINDINGS: TISSUE DENSITY: There are scattered areas of fibroglandular density. Bilateral Breast Mammographic Findings: No significant masses, calcifications or other abnormalities are identified. BI/SCRN MAMM (CAD)W/EHSAN BILAT IMPRESSION: There is no mammographic evidence of malignancy. OVERALL FINAL ASSESSMENT BI-RADS 1: NEGATIVE. RECOMMENDATION: Routine annual follow-up in 1 Year A letter with findings and recommendations will be mailed to the patient. Reading Location: [facility] CC: Dr. Deisy Arteaga MD Client Success Manager: Signed [facility] Low Dose CT Lung Screeningon 06-17-[address] Lung Screening [facility] Imaging Services [address] [place] [address] Lung Screening MR#: [id number] Acct: [id number] Name: THURSDAYGABBY Rep #: [id number] : 1955 F 70 From: Elliot friedman MD PCP: Dr. Deisy Arteaga MD Status: REG CLI Study: Low Dose CT Lung Screening Date of Exam: 06/17 Exam# [id number] Ordering Dr: Deisy Arteaga PROCEDURE: LOW DOSE CT LUNG SCREENING 06/17/2025 REASON FOR EXAM: >25 YEAR PACK HX, CURRENT SMOKER History of COPD. TECHNIQUE: LOW DOSE CT LUNG SCREENING Coronal and Sagittal reconstruction series were provided. One or more dose reduction techniques were used (e.g., Automated exposure control, adjustment of the mA and/or kV according to patient size, use of iterative reconstruction technique). REFERENCE LINK: [employer] Lung-RADS RADIATION DOSE SUMMARY: CTDlvol: 2.37 mGy DLP: 86.10 mGycm COMPARISON: Prior study dated June 16, 2024. FINDINGS: PULMONARY NODULES: (Only nodules >3mm are reported) Nodules described below are on series 1 unless otherwise specified. Pulmonary Nodules: No suspicious nodules are seen. Hardware:None Lymph Nodes:No suspicious lymph nodes. Heart and Vasculature:The heart is nonenlarged.Atherosc lerotic calcifications of the thoracic aorta. Thoracic aorta and pulmonary arteries have normal contours; noncontrast technique limits evaluation. Coronary Artery Calcifications: Present Lungs and Airways: Moderate degree of hyperinflation. Emphysematous changes seen more pronounced in the upper lobes with the centrilobular emphysematous changes. Mild scarring in the posterior aspect of the right upper lobe as well as in the medial aspect of the left and right upper lobes. There has been improvement in the medial aspect of the right middle lobe with better aeration. Focal bronchus is seen. Pleura:Unremarkable Upper Abdomen:Unremarkable Bones:Degenerative changes of the thoracic spine. CT/Low Dose CT Lung Screening IMPRESSION: Stable examination. No suspicious nodules are seen. Coronary artery calcification (CAC) is is present Lung-RADS Category: 2 BENIGN (BASED ON IMAGING FEATURES OR INDOLENT BEHAVIOR). RECOMMEND 12-MONTH SCREENING LDCT. Other Significant Findings: Reading Location: [id number] CC: Dr. Deisy Arteaga MD Client Success Manager: Signed [facility] Gram Stainon 01-11-2025 GS CHIN ABCESS Gram Stain 3+ Gram negative rods 1+ Gram positive cocci 3+ White Blood Cells No Epithelial cells Normal [facility] Comment on above: Performed By: #### M 100.3000, M100.2000 ####[facility] [id number] [place], [address] Wound Cultureon 01-11-2025 CHIN ABCESS No growth aerobically. Normal [facility] Comment on above: Performed By: #### M 100.3000, M100.1999 ####[facility] [id number] [place], [address] Emergency Department Summary on 01-10-2025 Emergency Department Summary [facility] Medical Records Department [address] [place] [address] Emergency Department Summary 01/10/25 MR#: [id number] Acct: [id number] Name: THURSDAYGABBY Rep #: [id number] : 1955 69 From: Chaka Montenegro MD [...] week associated with this tender swollen area. [facility] Medical History Cervical radiculopathy Chronic pain Hypercholesterolemia Osteoporosis COPD (chronic obstructive pulmonary disease) Home Medications ???Medication ???Instructions ???Recorded ???Last Taken ???Type albuterol sulfate 90 mcg/actuation 2 puff inhalation 4X/DAY PRN 06/14/24 History aerosol inhaler shortness of breath or wheezing atorvastatin 20 mg tablet 20 mg PO DAILY 06/14/24 06/14/24 H istory denosumab 60 mg/mL subcutaneous 60 mg subcut [id number] 01/09/25 Unk nown History syringe (Prolia) hydrocodone-acetamin ophen 5-325mg 1 tab PO Q6H PRN PRN [...] F L (more content not included)... Normal [facility] Gram stainOrdered By: Laci Montenegro on 01-10-2025 Microscopic observation Gram stain Nom (Unsp spec) [facility] Routine wound cultureOrdered By: Chaka Montenegro on 01-10-2025 Wound Culture No growth aerobically. [facility] Urgent Care Visit Reporton 0 01-09-2025 Urgent Care Visit Report [facility] [address] , [address] [place] [address] OFFICE VISIT Date of Service: 01/09/25 MR#: [id number] Acct: [id number] Name: THURSDAYGABBY Rep #: [id number] : 1955 Provider: KRISTI Weiss Age/Sex: 69/F Location: [facility] Status: Signed Intake Vital Signs 01/06/25 07:51 [...] Visit Reasons: THROAT PAIN Chief Complaint: gum redness/pain/swellin g Accompanied by: Self Allergies No Known Allergies [...] denosumab 60 mg/mL subcutaneous 60 mg subcut [id number] 01/09/2508/26 History syringe (Prolia) Have you fallen in the past year?: No Nurse's Note: Patient chin is swollen and red and warm. Patient states it itches and hurts to swallow. Patient isn't able to wear her dentures. [facility] Medical History (Updated 01/06/25 @ 08:18 by Tru Guidry RIVER CAPTAIN, RIVER CAPTAIN-C) Cervical radiculopathy Chronic pain Hypercholesterolemia Osteoporosis COPD (chronic obstructive pulmonary disease) Surgical History (Updated 01/06/25 @ 08:10 by Sally Mtz) History of dental surgery Family History no significant family his Social History (Updated 01/06/25 @ 08:11 by Sally Mtz) Smoking Status: Heavy Smoker (>10/day) alcohol intake: never substance use type: does not use HPI HPI Chief Complaint: gum redness/pain/swellin g Details: GABBY THURSDAY, is a 69 F [...] the above. This note was generated with CircuLite dictation software. It may contain incorrect words, spelling, and punctuation that were not noted in checking the note before signing. Coding Level of Care Code Off vis,est,level 3 Assessment and Plan Assessme (more content not included)... 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 denies fever, drainage. had all teeth removed years ago, uses dentures but cannot currently d/t pain and swelling PFS Medical History (Updated 01/06/25 @ 08:18 by Tru Guidry RIVER CAPTAIN, RIVER CAPTAIN-C) Cervical radiculopathy Chronic pain Hypercholesterolemia Osteoporosis COPD (chronic obstructive pulmonary disease) Surgical History (Updated 01/06/25 @ 08:10 by Sally Mtz) History of dental surgery Family History no significant family his Social History (Updated 01/06/25 @ 08:11 by Sally Mtz) Smoking Status: Heavy Smoker (>10/day) alcohol intake: never substance use type: does not use HPI HPI Chief Complaint: gum redness/pain/swellin g Details: GABBY THURSDAY, is a 69 F [...] change in bowel habits or difficulty swallowing Genitourinary-Female : No burning urination or urinary frequency Musc [...] Rate: reg (more content not included)... Normal [facility] Inital Evaluation (1) - PTon 11-21-2024 Inital Evaluation (1) - PT [facility] Physical Therapy [facility] [place] [address] / REHABILITATION SERVICES INITIAL EVALUATION MR#: [id number] Acct: [id number] Name: THURSDAYGABBY Rep #: [id number] : 1955 69 From: Rosangela Ham PT, Cert. MDT Referring DrMeera: Kash Sanford DPM Status: RE G RCR Insurance: [facility] 09/02/18 SELF PAY INSURANCE Patient's Visit Information Visit Information Visit Information: GABBY Snu THURSDAY is a 69 year old F [...] HURTING AFTER HAVING AN EX SESSION AT [employer] - 2ND OR 3RD TIME EXERCISING INDEP'LY [...] TO A POINT. SHOE INSERTS BOUGHT FROM [employer] BUT NOT CUSTOM MADE ALSO HELP TO A POINT. Disturbed sleep: NO Previous history/Previous treatment: UNREMARKABLE Treatment this episode: MULTIPLE INJECTIONS ONE TIME BY DR. ZAPIEN - electrical assembler - TOOK AWAY MOST OF THE PAIN [...] Weeks [place] (more content not included)... Normal [facility] Basophil percentageOrdered B y: David Arteaga on 06-17-2023 Bilirubin [Mass/Vol] 0.40 mg/dL 0.20-1.00 [facility] Comment on above: For patients on eltr ombopag therapy, use of Dimension [place] TBIL is not recommended. Chloride [Moles/Vol] 108 mmol/L 98-107 [facility] Cholesterol [Mass/Vol] 190 mg/dL <200 [facility] Comment on above: <200 mg/dL Desirable 200-240 mg/dL Borderline >240 mg/dL High Risk Glucose [Mass/Vol] 89 mg/dL 74-106 [facility] Potassium [Moles/Vol] 4.1 mmol/L 3.5-5.1 [facility] Protein [Mass/Vol] 7.2 g/dL 6.4-8.2 [facility] Sodium [Moles/Vol] 139 mmol/L 136-145 [facility] Triglyceride [Mass/Vol] 135 mg/dL <199 [facility] Comment on above: The drugs N-Acetylcy steine and Metamizole may falsely depress this assay.Serum Triglycerides Reference Interval Normal <150 mg/dL Borderline high 150 - 199 mg/dL High 200 - 499 mg/dL Very High > or = 500 mg/dL Laboratory - Chemistry and C hemistry - challengeOrdered By: David Arteaga on 06-17-2023 ALP [Catalytic activity/Vol] 107 U/L 45-117 [facility] ALT [Catalytic activity/Vol] 23 U/L 13-56 [facility] CO2 [Moles/Vol] 28.0 mmol/L 21.0-32.0 [facility] Globulin (S) [Mass/Vol] 3.8 g/dL 2.2-4.2 [facility] Urea nitrogen/Creatinine [Mass ratio] 22.4 mg/mg 10-20 [facility] No Panel InformationOrdered By: David Arteaga on 06-17-2023 Estimated GFR (MDRD) Amer 92 mL/min >60 [facility] Comment on above: GFR Calc Estimated GFR (MDRD) Non-Af Amer 76 mL/min >60 [facility] Comment on above: Non- GFR Calc Vitamin D 25-Hydroxy 42.1 ng/mL [facility] Comment on above: Vitamin D 25(OH) Sta tus Range Deficiency <20 ng/mL (50nmol/L) Insufficiency 20 - 30 ng/mL (50 - 75 nmol/L) Sufficiency 30 - 100 ng/mL (75 - 250 nmol/L) Toxicity >100 ng/mL (>250 nmol/L) Serum or plasma albumin jose urement (mass/volume)Ordered By: David Arteaga on 06-17-2023 Albumin [Mass/Vol] 3.4 g/dL 3.2-5.0 [facility] Serum or plasma albumin/glob ulin mass ratioOrdered By: David Arteaga on 06-17-2023 Albumin/Globulin [Mass ratio] 0.9 {ratio} 0.9-2.4 [facility] Serum or plasma calcium jose urement (mass/volume)Ordered By: David Arteaga on 06-17-2023 Calcium [Mass/Vol] 9.1 mg/dL 8.5-10.1 [facility] Serum or plasma cholesterol in HDL measurement (mass/volume)Ordered By: David Arteaga on 06-17-2023 Cholesterol in HDL [Mass/Vol] 52 mg/dL >40 [facility] Comment on above: The drugs N-Acetylcy steine and Metamizole may falsely depress this assay. Reference Range HDL <40 mg/dL Low HDL Cholesterol HDL >or= 60 mg/dL High HDL Cholesterol Serum or plasma cholesterol in VLDL measurement (mass/volume)Ordered By: David Arteaga on 06-17-2023 Cholesterol in VLDL [Mass/Vol] 27 mg/dL 5-40 [facility] Serum or plasma creatinine m easurement (mass/volume)Ordered By: David Arteaga on 06-17-2023 Creatinine [Mass/Vol] 0.80 mg/dL 0.55-1.02 [facility] Comment on above: The validity of the calculated GFR & GFRAA in patients over 70 years has not been determined. Clinical correlation is essential. Serum or plasma low density lipoprotein (LDL) cholesterol measurement (mass/volume)Ordered By: David Arteaga on 06-17-2023 Cholesterol in LDL [Mass/Vol] 111 mg/dL 0-130 [facility] Serum or plasma urea nitroge n measurement (mass/volume)Ordered By: David Arteaga on 06-17-2023 Urea nitrogen [Mass/Vol] 18 mg/dL 7-18 [facility] Thin prep Papanicolaou smear with manual screeningOrdered By: David Arteaga on 06-17-2023 Thin prep Papanicolaou smear with manual screening 15 U/L 15-37 [facility] Thin prep Papanicolaou smear with manual screening 3 5-15 [facility] Basophil percentageOrdered B y: Dr. Arteaga on 01-14-2023 Bilirubin [Mass/Vol] 0.40 mg/dL 0.20-1.00 [facility] Comment on above: For patients on eltr ombopag therapy, use of Dimension [place] TBIL is not recommended. Chloride [Moles/Vol] 105 mmol/L 98-107 [facility] Cholesterol [Mass/Vol] 198 mg/dL <200 [facility] Comment on above: <200 mg/dL Desirable 200-240 mg/dL Borderline >240 mg/dL High Risk Glucose [Mass/Vol] 87 mg/dL 74-106 [facility] Potassium [Moles/Vol] 4.0 mmol/L 3.5-5.1 [facility] Protein [Mass/Vol] 7.4 g/dL 6.4-8.2 [facility] Sodium [Moles/Vol] 142 mmol/L 136-145 [facility] Triglyceride [Mass/Vol] 154 mg/dL <199 [facility] Comment on above: The drugs N-Acetylcy steine and Metamizole may falsely depress this assay.Serum Triglycerides Reference Interval Normal <150 mg/dL Borderline high 150 - 199 mg/dL High 200 - 499 mg/dL Very High > or = 500 mg/dL Laboratory - Chemistry and C hemistry - challengeOrdered By: Dr. Arteaga on 01-14-2023 ALP [Catalytic activity/Vol] 105 U/L 45-117 [facility] ALT [Catalytic activity/Vol] 27 U/L 13-56 [facility] CO2 [Moles/Vol] 26.0 mmol/L 21.0-32.0 [facility] Globulin (S) [Mass/Vol] 3.5 g/dL 2.2-4.2 [facility] Urea nitrogen/Creatinine [Mass ratio] 19.4 mg/mg 10-20 [facility] No Panel InformationOrdered By: Dr. Arteaga on 01-14-2023 Estimated GFR (MDRD) Amer 103 mL/min >60 [facility] Comment on above: GFR Calc Estimated GFR (MDRD) Non-Af Amer 86 mL/min >60 [facility] Comment on above: Non- GFR Calc Parathyroid Hormone (Intact) 31.0 pg/mL 18.4-80.1 [facility] Thyroid Stimulating Hormone (TSH) 1.56 uIU/mL 0.358-3.74 [facility] Vitamin D 25-Hydroxy 37.1 ng/mL [facility] Comment on above: Vitamin D 25(OH) Sta tus Range Deficiency <20 ng/mL (50nmol/L) Insufficiency 20 - 30 ng/mL (50 - 75 nmol/L) Sufficiency 30 - 100 ng/mL (75 - 250 nmol/L) Toxicity >100 ng/mL (>250 nmol/L) Serum Treponema species anti body detectionOrdered By: Dr. Arteaga on 01-14-2023 Treponema sp Ab Ql (S) Non-Reactive [facility] Serum or plasma albumin jose urement (mass/volume)Ordered By: Dr. Arteaga on 01-14-2023 Albumin [Mass/Vol] 3.9 g/dL 3.2-5.0 [facility] Serum or plasma albumin/glob ulin mass ratioOrdered By: Dr. Arteaga on 01-14-2023 Albumin/Globulin [Mass ratio] 1.1 {ratio} 0.9-2.4 [facility] Serum or plasma calcium jose urement (mass/volume)Ordered By: Dr. Arteaga on 01-14-2023 Calcium [Mass/Vol] 9.7 mg/dL 8.5-10.1 [facility] Serum or plasma cholesterol in HDL measurement (mass/volume)Ordered By: Dr. Arteaga on 01-14-2023 Cholesterol in HDL [Mass/Vol] 55 mg/dL >40 [facility] Comment on above: The drugs N-Acetylcy steine and Metamizole may falsely depress this assay. Reference Range HDL <40 mg/dL Low HDL Cholesterol HDL >or= 60 mg/dL High HDL Cholesterol Serum or plasma cholesterol in VLDL measurement (mass/volume)Ordered By: Dr. Arteaga on 01-14-2023 Cholesterol in VLDL [Mass/Vol] 31 mg/dL 5-40 [facility] Serum or plasma creatinine m easurement (mass/volume)Ordered By: Dr. Arteaga on 01-14-2023 Creatinine [Mass/Vol] 0.72 mg/dL 0.55-1.02 [facility] Comment on above: The validity of the calculated GFR & GFRAA in patients over 70 years has not been determined. Clinical correlation is essential. Serum or plasma low density lipoprotein (LDL) cholesterol measurement (mass/volume)Ordered By: Dr. Arteaga on 01-14-2023 Cholesterol in LDL [Mass/Vol] 112 mg/dL 0-130 [facility] Serum or plasma urea nitroge n measurement (mass/volume)Ordered By: Dr. Arteaga on 01-14-2023 Urea nitrogen [Mass/Vol] 14 mg/dL 7-18 [facility] Thin prep Papanicolaou smear with manual screeningOrdered By: Dr. Arteaga on 01-14-2023 Thin prep Papanicolaou smear with manual screening 19 U/L 15-37 [facility] Thin prep Papanicolaou smear with manual screening 11 5-15 [facility] Basophil percentageon 2021 Bilirubin [Mass/Vol] 0.40 mg/dL 0.20-1.00 [facility] Work Phone: Comment on above: For patients on eltr ombopag therapy, use of Dimension [place] TBIL is not recommended. Chloride [Moles/Vol] 105 mmol/L 98-107 [facility] Work Phone: Cholesterol [Mass/Vol] 214 mg/dL <200 [facility] Work Phone: Comment on above: <200 mg/dL Desirable 200-240 mg/dL Borderline >240 mg/dL High Risk Glucose [Mass/Vol] 92 mg/dL 74-106 [facility] Work Phone: Potassium [Moles/Vol] 4.1 mmol/L 3.5-5.1 [facility] Work Phone: Protein [Mass/Vol] 7.5 g/dL 6.4-8.2 [facility] Work Phone: Sodium [Moles/Vol] 138 mmol/L 136-145 [facility] Work Phone: Triglyceride [Mass/Vol] 162 mg/dL <199 [facility] Work Phone: Comment on above: The drugs N-Acetylcy steine and Metamizole may falsely depress this assay.Serum Triglycerides Reference Interval Normal <150 mg/dL Borderline high 150 - 199 mg/dL High 200 - 499 mg/dL Very High > or = 500 mg/dL Laboratory - Chemistry and C hemistry - challengeon 05-07-2022 ALP [Catalytic activity/Vol] 100 U/L 45-117 [facility] Work Phone: ALT [Catalytic activity/Vol] 20 U/L 13-56 [facility] Work Phone: CO2 [Moles/Vol] 27.0 mmol/L 21.0-32.0 [facility] Work Phone: Globulin (S) [Mass/Vol] 3.8 g/dL 2.2-4.2 [facility] Work Phone: Urea nitrogen/Creatinine [Mass ratio] 22.6 mg/mg 10-20 [facility] Work Phone: No Panel Informationon 05-07 Estimated GFR (MDRD) Amer 93 mL/min >60 [facility] Work Phone: Comment on above: GFR Calc Estimated GFR (MDRD) Non-Af Amer 77 mL/min >60 [facility] Work Phone: Comment on above: Non- GFR Calc Ionized Calcium 5.4 mg/dL 4.5-5.6 [facility] Work Phone: Comment on above: Performed at: [address] [id number] Director: Julio Brarios PhD, Phone: [phone] Parathyroid Hormone (Intact) 37.4 pg/mL 18.4-80.1 [facility] Work Phone: Thyroid Stimulating Hormone (TSH) 1.30 uIU/mL 0.358-3.74 [facility] Work Phone: Vitamin D 25-Hydroxy 36.6 ng/mL [facility] Work Phone: Comment on above: Vitamin D 25(OH) Sta tus Range Deficiency <20 ng/mL (50nmol/L) Insufficiency 20 - 30 ng/mL (50 - 75 nmol/L) Sufficiency 30 - 100 ng/mL (75 - 250 nmol/L) Toxicity >100 ng/mL (>250 nmol/L) Serum or plasma albumin jose urement (mass/volume)on 05-07-2022 Albumin [Mass/Vol] 3.7 g/dL 3.2-5.0 [facility] Work Phone: Serum or plasma albumin/glob ulin mass ratioon 05-07-2022 Albumin/Globulin [Mass ratio] 1.0 {ratio} 0.9-2.4 [facility] Work Phone: Serum or plasma calcium jose urement (mass/volume)on 05-07-2022 Calcium [Mass/Vol] 9.5 mg/dL 8.5-10.1 [facility] Work Phone: Serum or plasma cholesterol in HDL measurement (mass/volume)on 05-07-2022 Cholesterol in HDL [Mass/Vol] 50 mg/dL >40 [facility] Work Phone: Comment on above: The drugs N-Acetylcy steine and Metamizole may falsely depress this assay. Reference Range HDL <40 mg/dL Low HDL Cholesterol HDL >or= 60 mg/dL High HDL Cholesterol Serum or plasma cholesterol in VLDL measurement (mass/volume)on 05-07-2022 Cholesterol in VLDL [Mass/Vol] 32 mg/dL 5-40 [facility] Work Phone: Serum or plasma creatinine m easurement (mass/volume)on 05-07-2022 Creatinine [Mass/Vol] 0.80 mg/dL 0.55-1.02 [facility] Work Phone: Comment on above: The validity of the calculated GFR & GFRAA in patients over 70 years has not been determined. Clinical correlation is essential. Serum or plasma low density lipoprotein (LDL) cholesterol measurement (mass/volume)on 05-07-2022 Cholesterol in LDL [Mass/Vol] 132 mg/dL 0-130 [facility] Work Phone: Serum or plasma urea nitroge n measurement (mass/volume)on 05-07-2022 Urea nitrogen [Mass/Vol] 18 mg/dL 7-18 [facility] Work Phone: Thin prep Papanicolaou smear with manual screeningon 05-07-2022 Thin prep Papanicolaou smear with manual screening 19 U/L 15-37 [facility] Work Phone: Thin prep Papanicolaou smear with manual screening 6 5-15 [facility] Work Phone: Vital Signs Date Time Vital Sign Value Performing Clinician Faci lity 07-27-2025 10:28-0400 Body height 162.[address] Deisy Arteaga MD Work Phone: [facility] 02-03-2025 08:41-0400 Body height 162.[address] Deisy Arteaga MD Work Phone: [facility] 02-03-2025 08:41-0400 Body temperature 96.9 [degF] Dr. Deisy Arteaga MD Work Phone: [facility] 02-03-2025 08:41-0400 Diastolic blood pressure 62 mm[Hg] Dr. Deisy Arteaga MD Work Phone: [facility] 02-03-2025 08:41-0400 Heart rate 73 /min Dr. Deisy Arteaga MD Work Phone: [facility] 02-03-2025 08:41-0400 Respiratory rate 16 /min Dr. Deisy Arteaga MD Work Phone: [facility] 02-03-2025 08:41-0400 SaO2% (BldA) [Mass fraction] 98 % Dr. Deisy Arteaga MD Work Phone: [facility] 02-03-2025 08:41-0400 Systolic blood pressure 124 mm[Hg] Dr. Deisy Arteaga MD Work Phone: [facility] 01-10-2025 16:23-0400 Body temperature 98 [degF] Dr. Deisy Arteaga MD Work Phone: 1(349)996-286383 [address] 01-10-2025 16:23-0400 Diastolic blood pressure 75 mm[Hg] Dr. Deisy Arteaga MD Work Phone: 1(621)168-296183 [address] 01-10-2025 16:23-0400 Heart rate 92 /min Dr. Deisy Arteaga MD Work Phone: [facility] 01-10-2025 16:23-0400 Respiratory rate 20 /min Dr. Deisy Arteaga MD Work Phone: 0(076)132-225849 [place] [address] 01-10-2025 16:23-0400 SaO2% (BldA) [Mass fraction] 93 % Dr. Deisy Arteaga MD Work Phone: [facility] 01-10-2025 16:23-0400 Systolic blood pressure 145 mm[Hg] Dr. Deisy Arteaga MD Work Phone: [facility] 01-10-2025 15:45-0400 Inhaled oxygen flow rate 1 L/min Dr. Deisy Arteaga MD Work Phone: [facility] 01-10-2025 15:18-0400 Inhaled oxygen concentration 3 % Dr. Deisy Arteaga MD Work Phone: [facility] 01-10-2025 11:02-0400 Body height 162.[address] Deisy Arteaga MD Work Phone: 8(067)596-265849 [place] [address] 01-10-2025 11:02-0400 Body mass index (BMI) [Ratio] 23.1 kg/m2 Dr. Deisy Arteaga MD Work Phone: 5(312)753-093249 [place] [address] 01-10-2025 11:02-0400 Body weight 61.[address] Deisy Arteaga MD Work Phone: 6(943)203-373047 [place] [address] 01-09-2025 08:50-0400 Body temperature 98 [degF] Dr. Deisy Arteaga MD Work Phone: 2(388)909-693649 [place] [address] 01-09-2025 08:50-0400 Diastolic blood pressure 68 mm[Hg] Dr. Deisy Arteaga MD Work Phone: 7(136)130-030047 [place] [address] 01-09-2025 08:50-0400 Heart rate 105 /min Dr. Desiy Arteaga MD Work Phone: 6(530)598-437647 [place] [address] 01-09-2025 08:50-0400 SaO2% (BldA) [Mass fraction] 99 % Dr. Deisy Arteaga MD Work Phone: 6(544)505-303647 [place] [address] 01-09-2025 08:50-0400 Systolic blood pressure 120 mm[Hg] Dr. Deisy Arteaga MD Work Phone: 4(577)438-902847 [place] [address] 01-06-2025 08:25-0500 Heart rate 95 /min Dr. Deisy Arteaga MD Work Phone: 7(483)042-296249 [place] [address] 01-06-2025 07:51-0500 Body mass index (BMI) [Ratio] 23.1 kg/m2 Dr. Deisy Arteaga MD Work Phone: 5(705)030-975347 [place] [address] 01-06-2025 07:51-0500 Body temperature 97.7 [degF] Dr. Deisy Arteaga MD Work Phone: 9(954)571-030247 [place] [address] 01-06-2025 07:51-0500 Body weight 60.[address] Deisy Arteaga MD Work Phone: 8(159)893-792949 [place] [address] 01-06-2025 07:51-0500 Diastolic blood pressure 60 mm[Hg] Dr. Deisy Arteaga MD Work Phone: [facility] 01-06-2025 07:51-0500 Respiratory rate 15 /min Dr. Deisy Arteaga MD Work Phone: [facility] 01-06-2025 07:51-0500 SaO2% (BldA) [Mass fraction] 97 % Dr. Deisy Arteaga MD Work Phone: [facility] 01-06-2025 07:51-0500 Systolic blood pressure 118 mm[Hg] Dr. Deisy Arteaga MD Work Phone: [facility] Encounters Encounter Date Encounter Type Care Provider Facility Start: 08-25-2025 ambulatory Deisy Barkley lity:[facility] Start: 08-23-2025 End: 08-23[facility] Start: 08-14-2025 End: 08-14[facility] [facility] Start: 08-11-2025 ambulatory Deisy Arteaga Faci lity:[facility] Start: 08-11-2025 End: 08-11-2025 [facility] Start: 07-27-2025 End: 07-27-[address] Tom Collazo MD -[facility] Start: 07-27-2025 End: 07-27-[address] Deisy Arteaga MD Work Phone: -[facility] Start: 07-13-[address] Solis Arteaga MD -Cat Scan [facility] Work Phone: Start: 07-13-2025 ambulatory Deisy Barkley lity:[facility] Start: 06-23-2025 End: 06-23-[address] Deisy Arteaga MD Work Phone: -Outpatient [facility] Start: 06-23-2025 End: 06-23-[address] Deisy Arteaga MD -Outpatient Breast Imaging Work Phone: Start: 06-23-2025 End: 06-23-2025 ambulatory Deisy Arteaga Facility:[facility] Start: 06-17-2025 End: 06-17-[address] Deisy Arteaga MD Work Phone: -Cat Scan [facility] Start: 06-17-2025 End: 06-17-[address] Deisy Arteaga MD -Cat Scan [facility] Work Phone: Start: 06-17-2025 End: 06-17-2025 ambulatory Deisy Arteaga Facility:[facility] Start: 02-03-2025 End: 02-03-[address] Deisy Arteaga MD -Medical Out Work Phone: Start: 02-03-2025 End: 02-03-[address] Deisy Arteaga MD Work Phone: [facility] Work Phone: Start: 01-10-2025 End: 01-10-2025 Emergency department patient visit Dr. Deisy Arteaga MD Work Phone: -Emergency Department Work Phone: Start: 01-09-2025 End: 01-09-2025 Patient encounter procedure Blas BERRY [facility] Work Phone: Start: 01-09-2025 End: 01-09-2025 ambulatory Blas BERRY [facility] Start: 01-06-2025 End: 01-06-2025 Patient encounter procedure Tru Guidry [facility] Work Phone: Start: 01-06-2025 End: 01-06-2025 ambulatory Tru Guidry NP Facility:[facility] Start: 12-01-2024 End: 12-01-2024 ambulatory Kash Sanford Facility:[facility] Start: 12-01-2024 Registered Recurring Kash rabago DPM -Physical Therapy Work Phone: Start: 06-19-2023 End: 06-19-2023 ambulatory [facility] Work Phone: Start: 06-19-2023 End: 06-19-2023 Patient encounter procedure [facility]-Outpatient Breast Imaging Work Phone: Start: 06-17-2023 End: 06-17-2023 ambulatory [facility] Work Phone: Start: 06-17-2023 End: 06-17-2023 Patient encounter procedure [facility] Start: 06-15-2023 End: 06-15-2023 ambulatory [facility] Work Phone: Start: 06-15-2023 End: 06-15-2023 Patient encounter procedure [facility]-Cat Scan, [facility] Work Phone: Start: 01-14-2023 End: 01-14-2023 ambulatory [facility] Work Phone: Start: 01-14-2023 End: 01-14-2023 Patient encounter procedure [facility] Start: 05-07-2022 End: 05-07-2022 Patient encounter procedure [facility] Start: 02-17-2019 Patient encounter procedure DEISY ARTEAGA [facility] Procedures Date Procedure Procedure Detail Performing Clinician Start: 07-27-2025 Radex ankle complete minimum [address] Deisy Arteaga MD Work Phone: Start: 07-13-2025 CT angiography of coronary arteries Dr. Deisy Arteaga MD Work Phone: Start: 06-23-2025 Screening mammography King Arteaga MD Work Phone: Start: 06-17-[address] Solis Arteaga MD Work Phone: Start: 01-10-2025 Gram stain microscopy King Arteaga MD Work Phone: Start: 01-10-2025 Microbial culture, routine Dr. Deisy Arteaga MD Work Phone: Start: 06-19-2023 Screening mammography Start: 06-15-2023 CT of chest Plan of Treatment Date Care Activity Detail Author Start: 01-10-2025 End: 01-10-2025 [facility] Start: 01-10-2025 Incision & drainage abscess complicated/multiple I&D ABSCESS COMP/MULTIPLE [facility] Start: 01-10-2025 Microscopic observat ion [Identifier] in Unspecified specimen by Gram stain [facility] Start: 01-10-2025 Wound Culture Wound Culture [facility] Patient Education ED Abscess Inc ision And Drainage [facility] Work Phone: Patient referral [facility] Work Phone: Wound microscopy, cu lture and sensitivities [facility] Payers Date Payer Category Payer Self-pay [id number] 2022 Private Health Insurance [id number] 2016 Unknown [id number] Unknown [id number] Unknown [id number] Unknown [id number] 2.16.8 [id number] Unknown [id number] 2.16.8 [id number] Unknown [id number] 2.16.8 [id number] Unknown [id number] 2.16.8 [id number] Unknown [id number] 2.16.8 [id number] Unknown [id number] 2.16.8 [id number] Unknown [id number] 2.16.8 [id number] Unknown [id number] 2.16.8 [id number] Unknown [id number] 2.16.8 [id number] Unknown [id number] 2.16.8 [id number] Unknown [id number] 2.16.8 [id number] Unknown [id number] 2.16.8 [id number] Unknown [id number] 2.16.8 [id number] Unknown [id number] 2.16.8 [id number] Social History Date Type Detail Facility [facility] Work Phone: Start: 1955 Sex Assigned At Female [facility] Start: 01-10-2025 End: 07-27-2025 Tobacco smoking status VAIS Current Heavy tobacco smoker [facility] Start: 01-10-2025 End: 02-04-2025 Sex Female (finding) [facility] Sex Female [facility] Mental Status Date Assessment Result Facility 02-03-2025 Cognitive function Awake;Alert;A ppropriate;Fol lows Commands [facility] Work Phone: 01-10-2025 Cognitive function Awake;Alert;Appropriat e [facility] Work Phone: Radiology Diagnostic study note 07-29-2025 Note Date & Type Note Facility 07-29-2025 Radiology Diagnostic study note [facility] Imaging Services [address] [place], [place] [id number] Foot min 3 Views MR#: [id number] Acct: [id number] Name: CARMENGABBY BAY Rep #: [id number] : 1955 F 70 From: Rosalio Abbott DO PCP: Dr. Deisy Arteaga MD Status: DEP AMB Study:Foot min 3 Views Date of Exam: Exam# [id number] Ordering Dr: Allan Fisher MD PROCEDURE: FOOT MIN 3 VIEWS 07/27/2025 REASON FOR EXAM: RIGHT FOOT PAIN ACROSS TOP OF FOOT AND ANTERIOR ANKLE, NKI TECHNIQUE: Procedure Code: RADFO Modality: DX Procedure: FOOT MIN 3 VIEWS Laterality: Right COMPARISON: None FINDINGS: Bones: Diffuse osteopenia of the osseous structures is noted. Small to moderate-size spur seen off the plantar surface of the calcaneus. There are no fractures or dislocations. Joints: Joint spaces are well preserved. Soft tissues: No appreciable soft tissue swelling is noted. RAD/Foot min 3 Views IMPRESSION: Diffuse osteopenia of the osseous structures is noted. Small to moderate-size spur seen off the plantar surface of the calcaneus. Reading Location: [id number] CC: Dr. Deisy Arteaga MD; Dr. Allan Fisher MD ~ Client Success Manager: Signed [facility] Radiology Diagnostic study note 07-29-2025 Note Date & Type Note Facility 07-29-2025 Radiology Diagnostic study note [facility] Imaging Services [address] [place] [address] Ankle min 3 Views MR#: [id number] Acct: [id number] Name: GABBY Sun Rep #: [id number] : 1955 F 70 From: Rosalio Abbott DO PCP: Dr. Deisy Arteaga MD Status: DEP AMB Study:Ankle min 3 Views Date of Exam: Exam# [id number] Ordering Dr: Allan Fisher MD PROCEDURE: ANKLE MIN 3 VIEWS 07/27/2025 REASON FOR EXAM: RIGHT FOOT PAIN ACROSS TOP OF FOOT AND ANTERIOR ANKLE, NKI TECHNIQUE: Procedure Code: RADANK Modality: DX Procedure: ANKLE MIN 3 VIEWS Laterality: Right COMPARISON: None FINDINGS: Bones: Diffuse osteopenia of the osseous structures is noted. There are no fractures or dislocations. There is a small to moderate size spur off the plantar surface of the calcaneus. Joints: Ankle mortise is intact. Joints are well preserved. Soft tissues: No appreciable soft tissue swelling is noted. RAD/Ankle min 3 Views IMPRESSION: Diffuse osteopenia osseous structures of the right ankle. Small to moderate-sized spur off the plantar surface of the calcaneus. Reading Location: [id number] CC: Dr. Deisy Arteaga MD; Dr. Allan Fisher MD ~ Client Success Manager: Signed [facility] Radiology Diagnostic study note 06-19-2025 Note Date & Type Note Facility 06-19-2025 Radiology Diagnostic study note [facility] Imaging Services [address] [place] [address] Lung Screening MR#: [id number] Acct: [id number] Name: THURSDAYGABBY Rep #: [id number] : 1955 F 70 From: Chivo Gómez MD PCP: Dr. Deisy Arteaga MD Status: REG CLI Study:Low Dose CT Lung Screening Date of Exam : 06/17/25 Exam# [id number] Ordering Dr: Kamila Arteaga MD PROCEDURE: LOW DOSE CT LUNG SCREENING 06/17/2025 REASON FOR EXAM: >25 YEAR PACK HX, CURRENT SMOKER History of COPD. TECHNIQUE: LOW DOSE CT LUNG SCREENING Coronal and Sagittal reconstruction series were provided. One or more dose reduction techniques were used (e.g., Automated exposure control, adjustment of the mA and/or kV according to patient size, use of iterative reconstruction technique). REFERENCE LINK: [facility] Lung-RADS RADIATION DOSE SUMMARY: CTDlvol: 2.37 mGy DLP: 86.10 mGycm COMPARISON: Prior study dated June 16, 2024. FINDINGS: PULMONARY NODULES: (Only nodules >3mm are reported) Nodules described below are on series 1 unless otherwise specified. Pulmonary Nodules: No suspicious nodules are seen. Hardware:None Lymph Nodes:No suspicious lymph nodes. Heart and Vasculature:The heart is nonenlarged.Atherosclerotic calcifications ofthe thoracic aorta. Thoracic aorta and pulmonary arteries have normal contours; noncontrast technique limits evaluation. Coronary Artery Calcifications: Present Lungs and Airways: Moderate degree of hyperinflation. Emphysematous changes seen more pronounced in the upper lobes with the centrilobular emphysematous changes. Mild scarring in the posterior aspect of the right upper lobe as well as in the medial aspect of the left and right upper lobes. There has been improvement in the medial aspect of the right middle lobe with better aeration. Focal bronchus is seen. Pleura:Unremarkable Upper Abdomen:Unremarkable Bones:Degenerative changes of the thoracic spine. CT/Low Dose CT Lung Screening IMPRESSION: Stable examination. No suspicious nodules are seen. Coronary artery calcification (CAC) is is present Lung-RADS Category: 2 BENIGN (BASED ON IMAGING FEATURES OR INDOLENT BEHAVIOR). RECOMMEND 12-MONTH SCREENING LDCT. Other Significant Findings: Reading Location: [facility] CC: Dr. Deisy Arteaga MD ~ Client Success Manager: Signed [facility] Discharge summary 01-10-2025 Note Date & Type Note Facility 01-10-2025 Discharge summary [facility] Discharge summary 01-10-2025 Note Date & Type Note Facility 01-10-2025 Discharge summary Note Date/Time January 10, 2025 4:10pm [facility] Medical Records Department [address] [facility] [place] [address] Emergency Department Summary 01/10/25 MR#: [id number] Acct: [id number] Name: THURSDAYGABBY Rep #:[id number] : 1955 69 From: Chaka Montenegro MD [...] week associated with this tender swollen area. [facility] Medical History Cervical radiculopathy Chronic pain Hypercholesterolemia Osteoporosis COPD (chronic obstructive pulmonary disease) Home Medications ?Medication ?Instructions ?Recorded ?Last Taken ?Type albuterol sulfate 90 mcg/actuation 2 puff inhalation 4 X/DAY PRN 06/14/24 06/14/24 History aerosol inhaler shortness of breath or wheez ing atorvastatin 20 mg tablet 20 mg PO DAILY 06/14/2406/02 History denosumab 60 mg/mL subcutaneous 60 mg subcut [id number] 01/09/25 Unknown History syringe (Prolia) hydrocodone-acetaminophen 5-325mg [...] the weekend. Management Discussion w/another healthcare provider: Forecast Analyst (ENT) Procedures Procedural Sedation 1 (Initial Baseline): [...] Prolia 60 mg/mL syringe 60 mg subcut [id number] atorvastatin 20 mg tablet 20 mg PO [...] for appointment date and time. Print Language: B[place] Disposition Disposition: Home, Self Care What to do if you have Problems For any increased pain, shortness of breath, bleeding, nausea or vomiting, chestpain, or any unexpected problems, contact your Primary Care Provider. Call [facility] ([phone]) or report to the closest Emergency Room. Call 911 if necessary. 01/10/25 1610 <Electronically signed by Chaka Montenegro MD> Cosigner Signature (if applicable): CC: Dr. Deisy Arteaga MD; Dr. Jeff Stewart MD ~ Signed [facility] Work Phone: Evaluation note 01-06-2025 Note Date & Type Note Facility 01-06-2025 Evaluation note Diagnosis Onset Date Resolution Pain in gums acute January 06 025 8:04am [facility] Work Phone: Evaluation note Note Date & Type Note Facility Evaluation note No assessment information availa ble [facility] Work Phone: Hospital Discharge instructions Note Date & Type Note Facility Hospital Discharge instructions Additional Instructions Change gauze dressing over drainage site as needed, may need to be couple times in the first 24 hours. Try to leave gauze packing in place until you are seen by ENT on or Thursday; call for appointment date and time. [facility] Work Phone: Reason for referral (narrative) Note Date & Type Note Facility Reason for referral (narrative) No reason for referral information available [facility] Work Phone: Summary Purpose Family History No Family History Records FoundNo Family History Records Found Advance Directives No Advanced Directives Records Found Advance Directive Response Recorded Date/ Time Living Will Yes January 10, 2025 1:06pm Power of Lightout Examiner Yes January 10 1:06pm Name of Medical Power of Lightout Examiner Emmanuel January 10, 2025 1:06pm Advance Directive Response Recorded Date/ Time Living Will Yes June 14 1:37pm Do you have a Healthcare Power of Lightout Examiner? Yes June 14, 2024 1:37pm Living Will Yes January 10, 2025 1:06pm Do you have a Healthcare Power of Lightout Examiner? Yes January 10, 2025 1:06pm Name of Medical Power of Lightout Examiner Emmanuel January 10, 2025 1:06pm Advance Directive Response Recorded Date/ Time Living Will Yes June 14 1:37pm Do you have a Healthcare Power of Lightout Examiner? Yes June 14, 2024 1:37pm Chief Complaint [...] Date PROLIA February 03, 2025 8:36 am Chief Complaint Admit Date SMOKER June 17, 2025 7: 42am Chief Complaint Admit Date SMOKER June 17, 2025 7: 42am SCREENING June 23, 2025 9: 40am Chief Complaint Admit Date SMOKER June 17, 2025 7: 42am SCREENING June 23, 2025 9: 40am PLAQUE NOTED ON LUNG SCREEN July 132024 6:41am XRAY July 27, 2025 10:29am Additional Source Comments INFORMATION SOURCE (unrecogn ized section and content) DATE CREATED AUTHOR 02/17/2019 [facility] DATE CREATED AUTHOR AUTHOR'S ORGANIZ ATION 09/02/2025 [facility] Goals (unrecognized section and [...] 2025 End: January 06, 2025 Tru Guidry RIVER CAPTAIN, RIVER CAPTAIN-C Attending Provider Active S tart: January 06, [...] 2025 End: February 03, 2025 Team Status: Inactive Member Role/Relationship Status Dates Dr. Deisy Arteaga MD Primary Care Provider Acti ve Start: June 17, 2025 End: June 17, 2025 Dr. Deisy Arteaga MD Attending Provider Active Start: June 17, 2025 End: June 17, 2025 Dr. Deisy Arteaga MD Referring Provider Active Start: June 17, 2025 End: June 17, 2025 Team Status: Inactive Member Role/Relationship Status Dates Dr. Deisy Arteaga MD Primary Care Provider Acti ve Start: June 23, 2025 End: June 23, 2025 Dr. Deisy Arteaga MD Attending Provider Active Start: June 23, 2025 End: June 23, 2025 Dr. Deisy Arteaga MD Referring Provider Active Start: June 23, 2025 End: June 23, 2025 Team Status: Active Member Role/Relationship Status Dates Dr. Deisy Arteaga MD Primary care physician Act kayli Team Status: Inactive Member Role/Relationship Status Dates Dr. Desiy Arteaga MD Primary care physician Act kayli Start: June 17, 2025 End: June 17, 2025 Dr. Deisy Arteaga MD Attending physician Active Start: June 17, 2025 End: June 17, 2025 Dr. Deisy Arteaga MD Referring Provider Active Start: June 17, 2025 End: June 17, 2025 Team Status: Inactive Member Role/Relationship Status Dates Dr. Deisy Arteaga MD Primary care physician Act kayli Start: June 23, 2025 End: June 23, 2025 Dr. Deisy Arteaga MD Attending physician Active Start: June 23, 2025 End: June 23, 2025 Dr. Deisy Arteaga MD Referring Provider Active Start: June 23, 2025 End: June 23, 2025 Team Status: Active Member Role/Relationship Status Dates Dr. Deisy Arteaga MD Primary care physician Act kayli Start: July 13, 2025 Dr. Deisy Arteaga MD Attending physician Active Start: July 13, 2025 Dr. Deisy Arteaga MD Referring Provider Active Start: July 13, 2025 Team Status: Inactive Member Role/Relationship Status Dates Dr. Deisy Arteaga MD Primary care physician Act kayli Start: July 27, 2025 End: July 27, 2025 Dr. Tom Collazo MD Attending physician Active Start: July 27, 2025 End: July 27, 2025 FOR RECORDS PERTAINING TO PATIENTS WHO [...] BE BASED ON THE PRIMARY CLINICAL RECORDS. [facility] [employer] [facility]. provides no warranty or guarantee of the accuracy or completeness of information in this document.
== END | disposition home or self-care (01) ==
PROVIDERS: PCP Family Medicine
DX: M87.180 Osteonecrosis due to drugs, jaw (principal)
CPT/HCPCS: 70486